=== PATIENT | female | born 1975 | race Caucasian/White ===

== ENCOUNTER 2020-08-23 16:54 | Outpatient (REF) | payer OTHER, SELFPAY | END 2020-08-23 16:55 | disposition home or self-care (01) | LOC: HO.LAB 16:54 | PROVIDERS: Visit Provider Nurse Practitioner Family | DX: Z20.828 Contact with and (suspected) exposure to other viral communicable diseases (principal) | CPT/HCPCS: U0003 ==

== ENCOUNTER 2020-10-12 10:24 | Outpatient (REF) | payer OTHER, SELFPAY ==
[2020-10-12 11:12] LABS: MANUAL DIFF FLAG NO
[2020-10-12 11:34] LABS: Basophils Percent Auto 0.4 % (0-2); Eosinophils Absolute Auto 0.2 X10*3/uL (0.0-0.4); Hematocrit 45.3 % (37-47); Hemoglobin 14.7 g/dl (12.0-16.0); Imm Gran Abs Auto 0.04 X10*3/uL (0.00-0.03); Imm Gran Pct Auto 0.5 % (0.0-0.4); Lymphocytes Absolute Auto 2.4 X10*3/uL (1.2-4.9); Lymphocytes Percent Auto 31.1 % (20-40); Mean Corpuscular HGB Conc 32.5 g/dl (31.0-35.0); Mean Corpuscular Hemoglobin 30.1 pg (27.0-33.0); Mean Corpuscular Volume 92.8 fL (80-98); Mean Platelet Volume 10.3 fL (9.4-12.3); Monocytes Absolute Auto 0.9 X10*3/uL (0.1-1.2); Monocytes Percent Auto 11.3 % (2-11); Neutrophils Absolute Auto 4.2 X10*3/uL (2.0-8.3); Neutrophils Percent Auto 54.7 % (45-73); Platelet Count 235 X10*3/uL (160-400); Red Blood Count 4.88 X10*6/uL (4.20-5.50); Red Cell Distribution Width 12.2 % (11.0-16.0); White Blood Count 7.6 X10*3/uL (4.8-10.8)
[2020-10-12 11:57] LABS: Alanine Aminotransferase 44 U/L (0-31); Albumin Level 4.3 g/dL (3.5-5.0); Alkaline Phosphatase 55 U/L (39-117); Anion Gap 13 (12-20); Aspartate Amino Transferase 19 U/L (5-31); Bilirubin Total 0.4 mg/dL (0.0-1.0); Blood Urea Nitrogen 14 mg/dL (9-16); Calcium 8.7 mg/dL (8.4-10.2); Carbon Dioxide 28 mmol/L (22-29); Chloride 102 mmol/L (96-108); Cholesterol 176 mg/dL; Estimated Glomerular Filt Rate > 60; Glucose Fasting 111 mg/dL (60-99); HDL Cholesterol 43 mg/dL; LDL Cholesterol Calculated 117 mg/dl; Potassium 4.6 mmol/l (3.3-5.1); Sodium 138 mmol/L (135-145); Total Protein 6.9 g/dL (6.5-8.0); Triglycerides 82 mg/dL
[2020-10-12 14:20] LABS: Glucose Urine UA NEG (NEG); Leukocyte Esterase Urine NEG (NEG); Nitrite Urine NEG (NEG); Specific Gravity - Urine <= 1.005 (1.005-1.025); Urine Blood NEG (NEG); Urine Ketones NEG (NEG); Urine Protein NEG (NEG-TRACE)
[2020-10-12 14:22] LABS: Appearance Urine CLEAR; Color Urine STRAW
[2020-10-12 14:47] LABS: RBC Urine 0 /HPF (0); WBC Urine 0-2 /HPF (0-4)
[2020-10-12 14:48] LABS: Squamous Epithelial Cell Urine TRACE /LPF
== END 2020-10-12 10:25 | disposition home or self-care (01) ==
LOC: HO.HMGCLDS 10:24
PROVIDERS: PCP Internal Medicine; Visit Provider Internal Medicine
DX: I10 Essential (primary) hypertension (principal); E78.5 Hyperlipidemia, unspecified; E66.01 Morbid (severe) obesity due to excess calories
CPT/HCPCS: 36415; 80053; 80061; 81001; 84443; 85025

== ENCOUNTER 2023-10-31 12:50 | Outpatient (AMB) | payer OTHER, SELFPAY ==
--- NOTE | 2023-10-31 12:54 | A.OFFPC_ITS ---
Vital Signs 10/31/23 12:55 Height 5 ft 8 in Weight 298 lb BMI 45.3 BP 138/80 Blood Pressure Location Lt brachial Position Sitting Pulse 97 Pulse Source Pulse Oximeter Pulse Oximetry (%) 98 Oxygen Delivery Method Room Air Intake Visit Reasons: PE Adjunct Teacher Required: No Accompanied by: Self / Same As Patient Allergies nut - unspecified [nut] Allergy (Severe, Verified 11/02/23 20:06) HIVES peanut [PEANUT] Allergy (Intermediate, Verified 11/02/23 20:06) HIVES prednisolone [From STERANE] Allergy (Intermediate, Verified 11/02/23 20:06) VISION PROBLEMS sesame oil [SESAME OIL] Allergy (Intermediate, Verified 11/02/23 20:06) HIVES galvan [GALVAN] Allergy (Unknown, Verified 11/02/23 20:06) UNKNOWN soy [SOY] Allergy (Unknown, Verified 11/02/23 20:06) UNKNOWN Medication List - Last Reconciled 11/02/23 by Benitez Espino MD atorvastatin 10 mg PO DAILY 90 days cholecalciferol (vitamin D3) 50 mcg PO DAILY ferrous sulfate (Feosol) 325 mg PO DAILY lisinopril 10 mg PO DAILY 90 days Tobacco use date assessed: 10/31/23 Dental Screening Dental Screen Date: 10/31/23 Did you have a dental visit in the last 12 months?: No Did you have a dental problem in the last 6 months where you did not have access to dental care?: No Was dental information given to patient?: No HPI PE HPI Details Patient comes in today for her annual physical examination - she was last seen by me for follow up over 3 years ago on 06/05/2020 Patient states that she currently feels okay She denies any headaches or dizziness Denies any chest pains, no SOB No nausea/vomiting, no abdominal pain No change in bowel habits noted Denies any acute urinary symptoms Needs both of her Rx refilled She has not had follow up labs done in over 3 years She had her screening colonoscopy done in [address] Villar and was recommended to get a repeat colonoscopy in 5 years (2022) due to family history She also has not had her screening mammogram and pap smear/gynecology exam done in a few years now and is due for all of her cancer screenings [facility] Medical History (Updated 11/02/23 @ 20:19 by Benitez Espino MD) Morbid obesity with BMI of 45.0-49.9, adult Vitamin D deficiency Anemia Pure hypercholesterolemia Essential hypertension Cellulitis of hand, left Thrush Sore throat Surgical History (Updated 10/31/23 @ 13:42 by Benitez Espino MD) Hx of colonoscopy History of hysteroscopy History of tonsillectomy Family History Father No problems noted. Mother Colon cancer Endometrial cancer Brother In good health Sister In good health Social History Housing: House Patient Tobacco Use Status: Never used Tobacco e-Cigarette/Vaping Use: Never Used Second Hand Smoke Exposure: No Current occupational status: employed Cognitive needs: No Hearing needs: No Vision needs: No Questionnaire PHQ-9 Over the last 2 weeks, how often have you been bothered by any of the following problems? 1. Little interest or pleasure in doing things: not at all 2. Feeling down, depressed, or hopeless: not at all 3. Trouble falling or staying asleep, or sleeping too much: not at all 4. Feeling tired or having little energy: not at all 5. Poor appetite or overeating: not at all 6. Feeling bad about yourself - or that you are a failure or have let yourself or your family down: not at all 7. Trouble concentrating on things, such as reading the newspaper or watching television: not at all 8. Moving or speaking so slowly that other people could have noticed. Or the opposite - being so fidgety or restless that you have been moving around a lot more than usual: not at all 9. Thoughts that you would be better off or of hurting yourself in some way: not at all Total score: 0 Depression Screening Interpretation: Negative Depression Screening Done: Yes 57368 - PHQ-9 Billing: Yes Source: Developed by Drs. Dudley Dos Santos, Farheen Benz, Feliciano Lopez and colleagues, with an educational desmond from [employer]. Thrive Questionnaire Date Thrive assessed: 10/31/23 I am a: Patient What is your living situation today?: I have a steady place to live Within the past 12 months, did the food you bought not last and you didn't have the money to get more?: Never true Within the past 12 months, did you worry whether your food would run out before you got money to buy more?: Never true Do you have trouble paying for medicines?: No Do you have trouble getting transportation to medical appointments?: No Do you have trouble paying your heating and electricity bill?: No Do you have trouble taking care of your child, family member or friend?: No Do you have trouble with day-to-day activities such as bathing, preparing meals, shopping, managing finances, etc.?: No Are you currently unemployed and looking for a job?: No Are you interested in more education?: No Please select the resources that you would like help with: None Currently or been in a relationship where the following occur: no concerns reported THRIVE Score: 0 AUDIT C Alcohol Use Questionnaire (AUDIT-C) 1. How often do you have a drink containing alcohol?: Never 3. How often do you have six or more drinks on one occasion?: Never Total Score: 0 Score Reviewed/Action Taken: Yes DONALDO-7 AMB Questionnaire DONALDO-7 Date DONALDO - 7 assessed: 10/31/23 Feeling nervous, anxious, or on edge: 0 = Not at all Not being able to stop or control worryin = Not at all Worrying too much about different things: 0 = Not at all Trouble relaxin = Not at all Being so restless that it is hard to sit still: 0 = Not at all Becoming easily annoyed or irritable: 0 = Not at all Feeling afraid as if something awful might happen: 0 = Not at all Total DONALDO-7 score (0-4 normal; 5-9 mild; 10-14 moderate; 15-21 severe): 0 Source: Developed by Drs. Dudley Dos Santos, Farheen Benz, Feliciano Lopez and colleagues, with an educational desmond from [employer]. Review of Systems Const Denies chills, Denies fatigue, Denies fever(s), Denies headache(s) and Denies malaise Eyes Denies blurry vision, Denies change in vision, Denies irritation and Denies itchy eyes ENT Denies dysphagia, Denies dizziness, Denies otalgia, Denies headache(s), Denies nasal congestion, Denies neck pain, Denies odynophagia, Denies sinus pain and Denies sore throat Card Denies chest pain, Denies rapid heart rate, Denies irregular heart rhythm, Nando es palpitations and Denies dyspnea Resp Denies chest congestion, Denies cough, Denies dyspnea and Denies wheezing GI Denies abdominal pain, Denies bloating, Denies constipation, Denies dysphagia, Denies heartburn, Denies diarrhea, Denies nausea, Denies odynophagia and Denies vomiting Denies hematuria, Denies urinary frequency, Denies dysuria, Denies urinary incontinence and Denies urinary urgency Musc Denies back pain, Denies arthralgias, Denies joint swelling, Denies muscle weakness and Denies neck pain Skin/Breast Denies breast pain, Denies breast mass, Denies change in pigmentation, Denies lesions, Denies rash and Denies unusual bruising Neuro Denies dizziness, Denies headache(s) and Denies paresthesias Psych Denies anxiety and Denies depression Endo Denies fatigue and Denies palpitations Jann/Lymph Denies easy bruising Aller/Immun Denies itchy eyes and Denies wheezing Physical exam (Primary Care) Vital Signs: Last Vital Signs Pulse 97 10/31/23 12:55 BP 138/80 10/31/23 12:55 Pulse Ox 98 10/31/23 12:55 Oxygen Delivery Method Room Air 10/31/23 12:55 BMI result Body Mass Index 45.3 Tobacco/Smoking Status: Tobacco use Status Tobacco use date assessed 10/31/23 10/31/23 13:05 Patient Tobacco Use Status Never used Tobacco 10/31/23 12:56 e-Cigarette/Vaping Use Never Used 10/31/23 12:56 PHQ-9: PHQ-9 Score PHQ-9: Total score 0 10/31/23 13:40 Depression Screening Interpretation: Negative Thrive Assessment: Date of Thrive Assessment Date Thrive assessed 10/31/23 10/31/23 13:05 Currently or been in a relationship where the following occur: no concerns reported Const General: no acute distress, alert and awake Orientation/consciousness: patient oriented x3 HENMT Head: Yes normocephalic and Yes atraumatic Ears: external ears normal, TM's normal bilaterally and EAC's normal General nose exam: No nasal discharge present Face and sinus: Yes normal facial exam and Yes sinuses nontender Teeth and gingiva: dentition normal Throat: Yes posterior oropharynx normal and Yes tonsils normal (no TP congestion) Eyes Eyelids: Yes eyelids normal Conjunctivae: conjunctivae normal Pupils: Equal, round and reactive pupils present EOM: EOMs intact bilaterally Neck Neck: Yes no lymphadenopathy and Yes supple Thyroid: Thyroid normal Resp Auscultation: clear to auscultation bilaterally, no rales and no wheezes Cardio Rate: regular rate Rhythm: regular rhythm Heart sounds: no murmurs GI Palpation (GI): Soft to palpation, nontender and No hepatosplenomegaly present Auscultation: normal bowel sounds General: Yes no CVA tenderness Back/Spine/Pelvis Back: no CVA tenderness Thoracic/Lumbar Spine: thoracic and lumbar spine normal to inspection Skin Lesions: no lesions Rashes: no rashes Neuro General: patient oriented x3, moves all extremities, no focal motor deficits and CN's II-XI intact bilaterally Cranial nerves: Yes Equal, round and reactive pupils present Cognition (Neuro): normal cognition Gait exam (Neuro): Normal gait present Extrem General: Yes no clubbing, cyanosis or edema Assessment and Plan Assessment & Plan (1) Annual physical exam: Code(s): Z00.00 - Encounter for general adult medical examination without abnormal findings Plan: Check labs She is due for all of her cancer screenings - these will be ordered/referred out (2) Essential hypertension: Code(s): I10 - Essential (primary) hypertension Plan: Reinforced low sodium diet - goal is systolic BP of 120 mm or less Continue Lisinopril 10 mg QD - Rx refilled Patient is reminded to continue monitoring her blood pressure regularly (3) Pure hypercholesterolemia: Code(s): E78.00 - Pure hypercholesterolemia, unspecified Plan: Will recheck her fasting lipids ALFRED for follow up Reinforced low cholesterol diet Continue Atorvastatin 10 mg QD Will recheck her labs and fasting lipids in 4 months for follow up (4) Anemia: Code(s): D64.9 - Anemia, unspecified Qualifiers: Anemia type: iron deficiency Iron deficiency anemia type: unspecified iron deficiency Qualified Code(s): D50.9 - Iron deficiency anemia, unspecified Plan: Will recheck her CBC ALFRED for follow up Continue Ferrous Sulfate 325 mg QD (5) Vitamin D deficiency: Code(s): E55.9 - Vitamin D deficiency, unspecified Plan: Continue Vitamin D3 2000 units QD Will recheck her Vitamin D level for follow up (6) Morbid obesity with BMI of 45.0-49.9, adult: Code(s): E66.01 - Morbid (severe) obesity due to excess calories; Z68.42 - Body mass index [BMI] 45.0-49.9, adult Plan: Reinforced diet/exercise as tolerated/lose weight (7) Colon cancer screening: Code(s): Z12.11 - Encounter for screening for malignant neoplasm of colon Plan: Will refer her back to Dr. Villar for repeat colonoscopy (8) Cervical cancer screening: Code(s): Z12.4 - Encounter for screening for malignant neoplasm of cervix Plan: Will refer her to [facility] for her annual pap smear and gynecology exam - was last done by Dr. Gibbs a few years ago (9) Breast cancer screening by mammogram: Code(s): Z12.31 - Encounter for screening mammogram for malignant neoplasm of breast Plan: Will send her for her screening mammogram Plan Follow up in 4 months Orders: Orders MM tomosynthesis screening BI 10/31/23 Z12.31 - Encounter for screening mammogram for malignant neoplasm of breast Complete Blood Count Auto Diff 10/31/23 D64.9 - Anemia, unspecified Comprehensive [place]. Panel Fast 10/31/23 E78.00 - Pure hypercholesterolemia, unspecified TSH reflex Free T4 10/31/23 E78.00 - Pure hypercholesterolemia, unspecified UA CC w/rflx Micro + Cult 10/31/23 R30.0 - Dysuria Vitamin D 25-OH Total 10/31/23 E55.9 - Vitamin D deficiency, unspecified Comprehensive [place]. Panel Fast 4 Months E78.00 - Pure hypercholesterolemia, unspecified Lipid Panel 10/31/23 E78.00 - Pure hypercholesterolemia, unspecified Vitamin B12 and Folate 10/31/23 E53.8 - Deficiency of other specified B group vitamins Lipid Panel 4 Months E78.00 - Pure hypercholesterolemia, unspecified Referrals General Surgery Referral Z12.11 - Encounter for screening for malignant neoplasm of colon PULL OVER Referral Z12.4 - Encounter for screening for malignant neoplasm of cervix Medications: Refilled atorvastatin 10 mg PO DAILY 90 days 90 tabs 1RF E78.5 - Hyperlipidemia, unspecified lisinopril 10 mg PO DAILY 90 days 90 tabs 1RF I10 - Essential (primary) hypertension Coding Level of Care Code Est Pt Prev Care 40-64y(63828) Diagnoses Annual physical exam Z00.00 Essential hypertension I10 Pure hypercholesterolemia E78.00 Iron deficiency anemia, unspecified iron deficiency anemia type D50.9 Anemia type: iron deficiency Iron deficiency anemia type: unspecified iron deficiency Vitamin D deficiency E55.9 Morbid obesity with BMI of 45.0-49.9, adult E66.01; Z68.42 Colon cancer screening Z12.11 Cervical cancer screening Z12.4 Breast cancer screening by mammogram Z12.31
[2023-10-31 12:55] VITALS: BP 138/80; PULSE 97; O2SAT 98; BMI 45.3
== END 2023-10-31 13:50 | disposition home or self-care (01) ==
PROVIDERS: PCP Internal Medicine; Visit Provider Internal Medicine
DX: Z00.00 Encounter for general adult medical examination without abnormal findings (principal); I10 Essential (primary) hypertension; E66.01 Morbid (severe) obesity due to excess calories; Z68.42 Body mass index [BMI] 45.0-49.9, adult; D50.9 Iron deficiency anemia, unspecified
CPT/HCPCS: 99396

== ENCOUNTER 2023-11-27 10:48 | Outpatient (AMB) | payer OTHER, SELFPAY ==
--- NOTE | 2023-11-27 11:09 | MHC.OFFVIS ---
Intake Vital Signs 11/27/23 11:12 Height 5 ft 8 in Weight 304 lb 10.861 oz BMI 46.3 BP 160/90 H Blood Pressure Location Lt brachial Position Sitting Intake Visit Reasons: Recall Colonoscopy Intake Note: This patient presents for a recall colonoscopy screening assessment. 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 Accompanied by: Self / Same As Patient Allergies nut - unspecified [nut] Allergy (Severe, Verified 11/27/23 11:12) HIVES peanut [PEANUT] Allergy (Intermediate, Verified 11/27/23 11:12) HIVES prednisolone [From STERANE] Allergy (Intermediate, Verified 11/27/23 11:12) VISION PROBLEMS sesame oil [SESAME OIL] Allergy (Intermediate, Verified 11/27/23 11:12) HIVES galvan [GALVAN] Allergy (Unknown, Verified 11/27/23 11:12) UNKNOWN soy [SOY] Allergy (Unknown, Verified 11/27/23 11:12) UNKNOWN Medication List - Last Reconciled 11/27/23 by Corey Villar MD atorvastatin 10 mg PO DAILY 90 days cholecalciferol (vitamin D3) 50 mcg PO DAILY ferrous sulfate (Feosol) 325 mg PO DAILY lisinopril 10 mg PO DAILY 90 days HPI Recall Colonoscopy HPI Details 48-year-old female with a family history of colon cancer here for screening colonoscopy. She says she undergoes colonoscopy every 5 years because of her mother having had colon cancer in her 60s. She also says her mother had endometrial cancer and is undergoing treatment now Her last colonoscopy was in 2018. Small polyps were removed which were tubular adenomas She denies any GI complaints at this time. [facility] Medical History (Updated 11/27/23 @ 11:40 by Corey Villar MD) Family history of colon cancer Morbid obesity with BMI of 45.0-49.9, adult Vitamin D deficiency Anemia Pure hypercholesterolemia Essential hypertension Cellulitis of hand, left Thrush Sore throat Surgical History Hx of colonoscopy History of hysteroscopy History of tonsillectomy Family History (Updated 11/27/23 @ 11:11 by BURAK Beckman) Father No problems noted. Mother Colon cancer Endometrial cancer Brother In good health Sister In good health Social History Housing: House Patient Tobacco Use Status: Never used Tobacco e-Cigarette/Vaping Use: Never Used Second Hand Smoke Exposure: No Current occupational status: employed Cognitive needs: No Hearing needs: No Vision needs: No Review of Systems Const Denies chills and Denies fever(s) Card Denies chest pain, Denies dyspnea and Denies dyspnea on exertion Resp Denies cough, Denies dyspnea and Denies dyspnea on exertion GI Denies hematochezia and Denies change in bowel habits Denies hematuria Musc Denies back pain and Denies limited range of motion Neuro Denies focal weakness and Denies convulsions Psych Denies depression and Denies mood swings Physical Exam Vital Signs: Last Vital Signs BP 160/90 H 11/27/23 11:12 BMI result Body Mass Index 46.3 Const Other: Morbidly obese General: comfortable and no acute distress Orientation/consciousness: patient oriented x3 Neck Neck: Yes no lymphadenopathy Resp Auscultation: clear to auscultation bilaterally Cardio Rhythm: regular rhythm GI Palpation (GI): Soft to palpation, nontender and no guarding Neuro General: patient oriented x3 Assessment & Plan Assessment & Plan (1) Family history of colon cancer: Code(s): Z80.0 - Family history of malignant neoplasm of digestive organs Plan: In view of her family history of colon cancer, she had been recommended to undergo colonoscopy every 5 years. I reviewed with her the technique of this procedure. She understands the risks including but not limited to bleeding and perforation, as well as the benefits and alternatives. She has given consent She was also counseled on the benefits of weight loss with regards to her risk of colon cancer. I also referred her the option of genetic counseling in view of her mother having had endometrial cancer. She says she will think about this. Medications: New sodium,potassium,mag sulfates 17.5-3.13-1.6 gram (Suprep Bowel Prep Kit) DILUTE; drink full amount early evening before AND next morning at least 2 hr before procedure; follow w 960 mL water PO 354 mL 0RF Coding Level of Care Code New Pt Level 3 (33372) Diagnoses Family history of colon cancer Z80.0
[2023-11-27 11:12] VITALS: BP 160/90; BMI 46.3
== END 2023-11-27 11:43 | disposition home or self-care (01) ==
PROVIDERS: PCP Internal Medicine; Visit Provider Surgery
DX: Z80.0 Family history of malignant neoplasm of digestive organs (principal)
CPT/HCPCS: 99203

== ENCOUNTER 2023-11-27 10:48 | Outpatient (REF) | payer OTHER, SELFPAY ==
[2023-11-27 12:06] LABS: MANUAL DIFF FLAG NO
[2023-11-27 12:33] LABS: Basophils Absolute Auto 0.1 X10*3/uL (0.0-0.2); Basophils Percent Auto 0.5 % (0-2); Eosinophils Absolute Auto 0.4 X10*3/uL (0.0-0.4); Eosinophils Percent Auto 4.1 % (0-4); Hematocrit 41.6 % (37.0-47.0); Hemoglobin 14.1 g/dl (12.0-16.0); Imm Gran Abs Auto 0.04 X10*3/uL (0.00-0.03); Imm Gran Pct Auto 0.4 % (0.0-0.4); Lymphocytes Absolute Auto 2.5 X10*3/uL (1.2-4.9); Lymphocytes Percent Auto 23.3 % (20-40); Mean Corpuscular HGB Conc 33.9 g/dl (31.0-35.0); Mean Corpuscular Hemoglobin 31.1 pg (27.0-33.0); Mean Corpuscular Volume 91.8 fL (80.0-98.0); Mean Platelet Volume 10.2 fL (9.4-12.3); Monocytes Absolute Auto 0.9 X10*3/uL (0.1-1.2); Monocytes Percent Auto 8.4 % (2-11); Neutrophils Absolute Auto 6.8 x10*3/uL (2.0-8.3); Neutrophils Percent Auto 63.3 % (45-73); Platelet Count 209 X10*3/uL (160-400); Red Blood Count 4.53 X10*6/uL (4.20-5.50); Red Cell Distribution Width 12.8 % (11.0-16.0); White Blood Count 10.8 X10*3/uL (4.8-10.8)
[2023-11-27 13:25] LABS: Alanine Aminotransferase 105 U/L (0-31); Albumin Level 3.9 g/dL (3.5-5.0); Alkaline Phosphatase 64 U/L (39-117); Anion Gap 14 (12-20); Aspartate Amino Transferase 59 U/L (5-31); Bilirubin Total 0.6 mg/dL (0.0-1.0); Blood Urea Nitrogen 18 mg/dL (9-16); Calcium 9.4 mg/dL (8.4-10.2); Carbon Dioxide 24 mmol/L (22-29); Chloride 103 mmol/L (96-108); Cholesterol 176 mg/dL (<200); Estimated Glomerular Filt Rate > 60; Glucose Fasting 102 mg/dL (60-99); HDL Cholesterol 36 mg/dL (>40); LDL Cholesterol Calculated 110 mg/dL (<100); Potassium 3.9 mmol/L (3.3-5.1); Sodium 137 mmol/L (135-145); Triglycerides 152 mg/dL (<150)
[2023-11-27 13:40] LABS: TSH reflex Free T4 4.11 uIU/mL (0.32-4.0); Vitamin D 25-OH Total 60.9 ng/mL (>30)
[2023-11-27 13:53] LABS: Folate 3.2 ng/mL (> or = 4.0); Vitamin B12 444 pg/mL (200-900)
[2023-11-27 14:23] LABS: Free T4 (Free Thyroxine) 1.06 ng/dL (0.71-1.85)
[2023-11-27 14:36] LABS: Appearance Urine Cloudy; Color Urine Yellow; Glucose Urine UA Negative (Negative); Leukocyte Esterase Urine Small (1+) (Negative); Nitrite Urine Negative (Negative); PH 5.5 (5.0-9.0); Specific Gravity - Urine <= 1.005 (1.005-1.025); UMIC TRIGGER UACC YES; Urine Blood Negative (Negative); Urine Ketones Negative (Negative); Urine Protein Trace mg/dL (Neg-Trace)
[2023-11-27 14:47] LABS: Bacteria Urine 1+ (None Seen); Hyaline Casts Urine 0-2 /LPF (0-2); RBC Urine 0-2 /HPF (0-2); UACC Culture Trigger YES
== END 2023-11-27 10:49 | disposition home or self-care (01) ==
LOC: HO.LAB 10:48
PROVIDERS: Absent Provider Internal Medicine; PCP Internal Medicine; Visit Provider Surgery
DX: E55.9 Vitamin D deficiency, unspecified (principal); E78.00 Pure hypercholesterolemia, unspecified; E53.8 Deficiency of other specified B group vitamins; D64.9 Anemia, unspecified; R30.0 Dysuria
CPT/HCPCS: 36415; 80053; 80061; 81001; 82306; 82607; 82746; 84439; 84443; 85025; 87086

== ENCOUNTER 2023-12-18 11:03 | Outpatient (REF) | payer OTHER, SELFPAY ==
--- NOTE | ~2023-12-18 | MM_ITS ---
EXAMINATION: MM SCREENING DIGITAL BREAST TOMOSYNTHESIS, BILATERAL CLINICAL INFORMATION: Screening. Asymptomatic. COMPARISON: Mammography: This study is compared with the only prior mammogram from 2019. TECHNIQUE: Digital breast tomosynthesis is performed in both the craniocaudal and mediolateral oblique views along with computer-aided detection (CAD). Synthesized 2D images are generated from the tomosynthesis. FINDINGS: There are scattered areas of fibroglandular density (ACR BI-RADS breast composition Category b). There are no significant masses, abnormal calcifications, or other abnormalities. MM/MM tomosynthesis screening BI IMPRESSION: No mammographic evidence of malignancy. ASSESSMENT: BI-RADS BI-RADS 1 - Negative RECOMMENDATION: Routine annual mammography screening. 1 year F/U This examination should not preclude the clinical evaluation of a suspicious palpable abnormality. This patient's information was entered into a reminder system with a target due date for their next mammogram.
== END 2023-12-18 11:04 | disposition home or self-care (01) ==
LOC: HO.MAMMO 11:03
PROVIDERS: PCP Internal Medicine; Visit Provider Internal Medicine
DX: Z12.31 Encounter for screening mammogram for malignant neoplasm of breast (principal)
CPT/HCPCS: 77063; 77067

== ENCOUNTER → 2023-12-18 11:30 | Outpatient (BNV) | payer OTHER, SELFPAY | PROVIDERS: PCP Internal Medicine; Visit Provider Radiology Diagnostic Radiology | DX: Z12.31 Encounter for screening mammogram for malignant neoplasm of breast (principal) | CPT/HCPCS: 77063; 77067 ==

== ENCOUNTER 2024-01-16 07:37 | Day surgery (SDC) | payer OTHER, SELFPAY ==
--- NOTE | 2024-01-14 15:01 | P.CONAN_ITS ---
Documented by User: Marlene Ahuja NP 01/14/24 15:01 HPI - Anesthesia Eval Consult details Narrative: 48yo F for Colonoscopy with Possible Polypectomy PMFSH Active Problems Active Problems: All Active Problems Family history of colon cancer (Acute) Breast cancer screening by mammogram (Acute) Morbid obesity with BMI of 45.0-49.9, adult (Acute) Vitamin D deficiency (Acute) Anemia (Acute) Pure hypercholesterolemia (Acute) Essential hypertension (Acute) Annual physical exam (Acute) Cervical cancer screening (Acute) Colon cancer screening (Acute) Hypertension (Acute) Hyperlipidemia (Acute) Past Medical History Medical History (Updated 11/27/23 @ 11:40 by Corey Villar MD) Family history of colon cancer Morbid obesity with BMI of 45.0-49.9, adult Vitamin D deficiency Anemia Pure hypercholesterolemia Essential hypertension Cellulitis of hand, left Thrush Sore throat Family History Family History (Updated 11/27/23 @ 11:11 by BURAK Beckman) Father No problems noted. Mother Colon cancer Endometrial cancer Brother In good health Sister In good health Surgical History Surgical History Hx of colonoscopy History of hysteroscopy History of tonsillectomy Social History Social History Housing: House Patient Tobacco Use Status: Never used Tobacco e-Cigarette/Vaping Use: Never Used Second Hand Smoke Exposure: No Use of substances other than those prescribed or required for medical reasons: No Are you DNR?: No Advance Directives: No Advance Directives Information Provided: Yes Current occupational status: employed Cognitive needs: No Hearing needs: No Vision needs: No Meds Allergies Allergy/AdvReac Type Severity Reaction Status Date / Time nut - unspecified [nut] Allergy Severe HIVES Verified 01/16/24 09:08 peanut [PEANUT] Allergy Intermediate HIVES Verified 01/16/24 09:08 prednisolone [From STERANE] Allergy Intermediate VISION Verified 01/16/24 09:08 PROBLEMS sesame oil [SESAME OIL] Allergy Intermediate HIVES Verified 01/16/24 09:08 galvan [GALVAN] Allergy Unknown UNKNOWN Verified 01/16/24 09:08 soy [SOY] Allergy Unknown UNKNOWN Verified 01/16/24 09:08 Home Medications ?Medication ?Instructions ?Recorded ?Confirmed ?Last Taken ?Type cholecalciferol (vitamin D3) 50 50 mcg PO DAILY 05/26/21 01/16/24 01/15/24 History mcg (2,000 unit) capsule ferrous sulfate 325 mg (65 mg 325 mg PO DAILY 05/26/21 01/16/24 01/14/24 History iron) tablet (Feosol) Assessment and Plan Assessment Anesthesia Assessment: Chart Reviewed Documented by User: Nathaly Gray MD 01/16/24 09:09 [facility] Past Medical History Medical History (Updated 11/27/23 @ 11:40 by Corey Villar MD) Family history of colon cancer Morbid obesity with BMI of 45.0-49.9, adult Vitamin D deficiency Anemia Pure hypercholesterolemia Essential hypertension Cellulitis of hand, left Thrush Sore throat Family History Family History (Updated 11/27/23 @ 11:11 by BURAK Beckman) Father No problems noted. Mother Colon cancer Endometrial cancer Brother In good health Sister In good health Family history of problems with anesthesia: No Surgical History Surgical History Hx of colonoscopy History of hysteroscopy History of tonsillectomy History of Problems with Anesthesia: No Social History Social History Housing: House Patient Tobacco Use Status: Never used Tobacco e-Cigarette/Vaping Use: Never Used Second Hand Smoke Exposure: No Use of substances other than those prescribed or required for medical reasons: No Are you DNR?: No Advance Directives: No Advance Directives Information Provided: Yes Current occupational status: employed Cognitive needs: No Hearing needs: No Vision needs: No Meds Allergies Allergy/AdvReac Type Severity Reaction Status Date / Time nut - unspecified [nut] Allergy Severe HIVES Verified 01/16/24 09:08 peanut [PEANUT] Allergy Intermediate HIVES Verified 01/16/24 09:08 prednisolone [From STERANE] Allergy Intermediate VISION Verified 01/16/24 09:08 PROBLEMS sesame oil [SESAME OIL] Allergy Intermediate HIVES Verified 01/16/24 09:08 galvan [GALVAN] Allergy Unknown UNKNOWN Verified 01/16/24 09:08 soy [SOY] Allergy Unknown UNKNOWN Verified 01/16/24 09:08 Home Medications ?Medication ?Instructions ?Recorded ?Confirmed ?Last Taken ?Type cholecalciferol (vitamin D3) 50 50 mcg PO DAILY 05/26/21 01/16/24 01/15/24 History mcg (2,000 unit) capsule ferrous sulfate 325 mg (65 mg 325 mg PO DAILY 05/26/21 01/16/24 01/14/24 History iron) tablet (Feosol) Exam Airway Mallampati Class: II (small mouth opening) TM Dist: >3cm Neck ROM: Full Heart: rrr Lungs: cta Assessment and Plan Assessment Anesthesia Assessment: Anesthesia Plan Discussed Final Anesthetic Review Family History of Problems with Anesthesia: No History of Problems with Anesthesia: No NPO: Yes ASA Class: III Final Preanesthetic Review: No Changes in Pt Med Stat, Meds/Allgs Chart Reviewed and Consent Obtained/Reviewed Patient Risk: Intermediate Procedure Risk: Low Anesthetic Plan Anesthetic Plan: MAC: Disposition: Standard PACU
[2024-01-15 06:34] VITALS: BMI 46.2
[2024-01-16 08:42] VITALS: BMI 45.6
[2024-01-16 09:07] VITALS: BP 178/98; PULSE 87; RESP 16; TEMP 36.1; O2SAT 97
[2024-01-16] MEDS: Lactated Ringers 1,000 ML 100 ML IVCONT (09:08)
--- NOTE | 2024-01-16 09:29 | P.HPSUR_ITS ---
Pre-Procedural Eval Section A - 24 Hr Update-Section A only Date of Service: 01/16/24 Section B - Complete if H&P > 30 days Chief Complaint: Family history of malignant neoplasm of digestive Details of Present Illness: Family history of colon cancer, undergoes a colonoscopy every 5 years Relevant Family History (Specify if Yes): Yes Relevant Social History: None Present Medications: see Short Stay Collaborative assessment Medical History: Significant History (Obesity, hypertension, hyperlipidemia) Allergies: Allergies Allergy/AdvReac Type Severity Reaction Status Date / Time nut - unspecified [nut] Allergy Severe HIVES Verified 01/16/24 09:08 peanut [PEANUT] Allergy Intermediate HIVES Verified 01/16/24 09:08 prednisolone [From STERANE] Allergy Intermediate VISION Verified 01/16/24 09:08 PROBLEMS sesame oil [SESAME OIL] Allergy Intermediate HIVES Verified 01/16/24 09:08 diaz [DIAZ] Allergy Unknown UNKNOWN Verified 01/16/24 09:08 soy [SOY] Allergy Unknown UNKNOWN Verified 01/16/24 09:08 Review of Systems Sugical H&P ROS: Negative: Constitution, Cardiovascular, Respiratory, Neurological, Psychiatric, Hem-Onc, Allergic/Immunologic, Gastrointestinal, Genitourinary, Musculoskeletal, Integumentary, Endocrine and Eyes/Ears/Nose/T hroat Exam Surgical H&P Exam: Normal: HEENT, Normal: Heart, Normal: Lungs, Normal: Extremities, Normal: Abdomen, Normal: Skin and Normal: Neurological Plan Diagnosis/Plan: Unchanged I have reviewed the history and physical and performed a pertinent physical examination on my patient. No changes have occurred unless specified. Time Spent With Patient Time: Total time managing care of this patient today ____ minutes.
--- NOTE | 2024-01-16 10:11 | W.PM.OPN ---
Operative Note Operative Note Date of Service: 01/16/24 Narrative: Preop diagnosis: Family history of colon cancer Postop diagnosis: 1. small polyp about 3 mm, right colon, removed by cold forceps 2. Polyp, about .8 cm in size, level 25 cm, removed by hot snare 3. Occasional diverticuli, left colon and sigmoid Procedure: Colonoscopy with polypectomy using cold forceps x1 and polypectomy some hot snare x1 Surgeon: Corey Villar MD The patient is a 48-year-old female with a family history of colon cancer who is undergoing screening colonoscopy every 5 years. She understands the technique of the procedure as well as the risks, benefits, and alternatives. The patient was brought to the operating room and placed in left lateral decubitus position under monitored anesthesia care. A surgical time-out was done. A full digital rectal exam was done and this did not reveal any significant anal lesions. The tip of the Olympus colonoscope was gently introduced through the anal orifice advanced with insufflation all the way to the cecum. The cecum was intubated. The cecum was identified by visualization of the ileocecal valve as well as the appendiceal orifice. The cecal mucosa was unremarkable. The scope was gradually withdrawn with careful examination of the entire colonic mucosa being done with scope withdrawal. The patient had adequate bowel prep so it was unlikely that any lesion may have been missed. In the mid right colon, there was note of a small polyp, about 3 mm in size. This was removed with cold forceps. At level 25 cm, there was note of a 0.8 cm polyp. This was removed using hot snare. There was note of occasional diverticuli in the left colon sigmoid. The rectum was reached and there were no lesions seen. The anal canal was unremarkable. The scope was then withdrawn completely with desufflation. The patient tolerated the procedure well. There were no immediate complications. Depending on the path report, her next colonoscopy may be in the next 5 years.
[2024-01-16 10:18] VITALS: BP 129/78; PULSE 85; RESP 16; TEMP 36.7; O2SAT 100
[2024-01-16 10:33] VITALS: BP 156/93; PULSE 78; RESP 18; TEMP 36.1; O2SAT 100
== END 2024-01-16 10:54 | disposition home or self-care (01) ==
PROVIDERS: PCP Internal Medicine; Visit Provider Surgery
PROC: 0DBE8ZZ Excision of Large Intestine, Via Natural or Artificial Opening Endoscopic (ICD-10-PCS; CPT 45385; principal; 2024-01-16 09:30)
DX: Z12.11 Encounter for screening for malignant neoplasm of colon (principal); Z80.0 Family history of malignant neoplasm of digestive organs; D12.2 Benign neoplasm of ascending colon; K63.5 Polyp of colon; K57.30 Diverticulosis of large intestine without perforation or abscess without bleeding; Z80.8 Family history of malignant neoplasm of other organs or systems; E66.01 Morbid (severe) obesity due to excess calories; Z68.42 Body mass index [BMI] 45.0-49.9, adult; I10 Essential (primary) hypertension; E55.9 Vitamin D deficiency, unspecified; D64.9 Anemia, unspecified; E78.00 Pure hypercholesterolemia, unspecified; Z79.899 Other long term (current) drug therapy; Z91.018 Allergy to other foods; Z91.010 Allergy to peanuts; Z88.8 Allergy status to other drugs, medicaments and biological substances
CPT/HCPCS: 45385; 45380; 88305; J2704

== ENCOUNTER → 2024-01-16 07:37 | Outpatient (BNV) | payer OTHER, SELFPAY | PROVIDERS: PCP Internal Medicine; Visit Provider Surgery | DX: Z12.11 Encounter for screening for malignant neoplasm of colon (principal); K63.5 Polyp of colon; K57.90 Diverticulosis of intestine, part unspecified, without perforation or abscess without bleeding; Z80.0 Family history of malignant neoplasm of digestive organs | CPT/HCPCS: 45380; 45385 ==

== ENCOUNTER 2024-02-02 11:01 | Outpatient (AMB) | payer OTHER, SELFPAY ==
--- NOTE | 2024-02-02 11:02 | MHC.OFFVIS ---
Intake Visit Reasons: s/p colonoscopy Intake Note: This patient presents for a post-op assessment status post colonoscopy. Patient c/o; reports no complaints. Breakdown Man Required: No Accompanied by: Self / Same As Patient Allergies nut - unspecified [nut] Allergy (Severe, Verified 02/02/24 11:05) HIVES peanut [PEANUT] Allergy (Intermediate, Verified 02/02/24 11:05) HIVES prednisolone [From STERANE] Allergy (Intermediate, Verified 02/02/24 11:05) VISION PROBLEMS sesame oil [SESAME OIL] Allergy (Intermediate, Verified 02/02/24 11:05) HIVES diaz [DIAZ] Allergy (Unknown, Verified 02/02/24 11:05) UNKNOWN soy [SOY] Allergy (Unknown, Verified 02/02/24 11:05) UNKNOWN Medication List - Last Reconciled 02/02/24 by Corey Villar MD atorvastatin 10 mg PO DAILY 90 days cholecalciferol (vitamin D3) 50 mcg PO DAILY ferrous sulfate (Feosol) 325 mg PO DAILY lisinopril 10 mg PO DAILY 90 days HPI HPI s/p colonoscopy: Details: She underwent colonoscopy because of a family history of colon cancer last 01/16/2024. She tolerated the procedure well. She currently denies significant complaints. [facility] Medical History (Updated 02/02/24 @ 11:09 by Corey Villar MD) Tubular adenoma Family history of colon cancer Morbid obesity with BMI of 45.0-49.9, adult Vitamin D deficiency Anemia Pure hypercholesterolemia Essential hypertension Cellulitis of hand, left Thrush Sore throat Surgical History Hx of colonoscopy (~01/16/24) Hx of colonoscopy History of hysteroscopy History of tonsillectomy Family History Father No problems noted. Mother Colon cancer Endometrial cancer Brother In good health Sister In good health Social History Housing: House Patient Tobacco Use Status: Never used Tobacco e-Cigarette/Vaping Use: Never Used Second Hand Smoke Exposure: No Current occupational status: employed Cognitive needs: No Hearing needs: No Vision needs: No Review of Systems Const Denies chills and Denies fever(s) Card Denies chest pain, Denies dyspnea and Denies dyspnea on exertion Resp Denies cough, Denies dyspnea and Denies dyspnea on exertion GI Denies hematochezia and Denies change in bowel habits Denies hematuria Musc Denies back pain and Denies limited range of motion Neuro Denies focal weakness and Denies convulsions Psych Denies depression and Denies mood swings Physical Exam Const General: comfortable and no acute distress Resp Effort & Inspection: normal respiratory effort Cardio Rate: regular rate GI Palpation (GI): Soft to palpation, not firm and nontender Assessment & Plan Assessment & Plan (1) Tubular adenoma: Code(s): D36.9 - Benign neoplasm, unspecified site Category: Medical Plan: Status post colonoscopy for screening. I removed 2 small polyps. One was a tubular adenoma in the right colon. The other 1 was a hyperplastic polyp. In view of her family history, I would recommend continue with her colonoscopy every 5 years for screening. Coding Level of Care Code Est Pt Level 2 (03107) Diagnoses Tubular adenoma D36.9
== END 2024-02-02 11:24 | disposition home or self-care (01) ==
PROVIDERS: PCP Internal Medicine; Visit Provider Surgery
DX: D36.9 Benign neoplasm, unspecified site (principal)
CPT/HCPCS: 99212

== ENCOUNTER → 2024-02-02 11:01 | Outpatient (BNVA) | payer OTHER, SELFPAY | PROVIDERS: PCP Internal Medicine; Visit Provider Surgery ==

== ENCOUNTER 2024-03-04 10:50 | Outpatient (AMB) | payer OTHER, SELFPAY ==
--- NOTE | 2024-03-04 11:05 | A.OFFPC_ITS ---
Vital Signs 03/04/24 11:06 Height 5 ft 8 in Weight 293 lb BMI 44.5 BP 138/80 Blood Pressure Location Lt brachial Position Sitting Pulse 74 Pulse Source Pulse Oximeter Pulse Oximetry (%) 97 Oxygen Delivery Method Room Air Intake Visit Reasons: hyperlipidemia, HTN Intake Note: Patient here for a follow up hyperlipidemia, HTN Bindery Manager Required: No Accompanied by: Self / Same As Patient Allergies nut - unspecified [nut] Allergy (Severe, Verified 03/04/24 11:43) HIVES peanut [PEANUT] Allergy (Intermediate, Verified 03/04/24 11:43) HIVES prednisolone [From STERANE] Allergy (Intermediate, Verified 03/04/24 11:43) VISION PROBLEMS sesame oil [SESAME OIL] Allergy (Intermediate, Verified 03/04/24 11:43) HIVES galvan [GALVAN] Allergy (Unknown, Verified 03/04/24 11:43) UNKNOWN soy [SOY] Allergy (Unknown, Verified 03/04/24 11:43) UNKNOWN Medication List - Last Reconciled 03/04/24 by Benitez Espino MD atorvastatin 10 mg PO DAILY 90 days cholecalciferol (vitamin D3) 50 mcg PO DAILY lisinopril 10 mg PO DAILY 90 days Tobacco use date assessed: 10/31/23 Dental Screening Dental Screen Date: 03/04/24 Did you have a dental visit in the last 12 months?: No Did you have a dental problem in the last 6 months where you did not have access to dental care?: No Was dental information given to patient?: Patient has dentist HPI hyperlipidemia, HTN HPI Details Patient comes in today for her follow up visit States that she feels okay She had her repeat colonoscopy back in late December 2023 - (+) tubular adenoma and she was advised to get a repeat colonoscopy in 5 years (2028) She denies any headaches or dizziness Denies any chest pains, no SOB No nausea/vomiting, no abdominal pain No change in bowel habits noted She was not able to get her follow up labs done prior to her visit today although she did have some labs done for Dr. Villar back in November 2023 [facility] Medical History Tubular adenoma Family history of colon cancer Morbid obesity with BMI of 45.0-49.9, adult Vitamin D deficiency Anemia Pure hypercholesterolemia Essential hypertension Cellulitis of hand, left Thrush Sore throat Surgical History Hx of colonoscopy (~01/16/24) Hx of colonoscopy History of hysteroscopy History of tonsillectomy Family History Father No problems noted. Mother Colon cancer Endometrial cancer Brother In good health Sister In good health Social History Housing: House Patient Tobacco Use Status: Never used Tobacco e-Cigarette/Vaping Use: Never Used Second Hand Smoke Exposure: No service: No Current occupational status: employed Cognitive needs: No Hearing needs: No Vision needs: Yes Questionnaire PHQ-9 Over the last 2 weeks, how often have you been bothered by any of the following problems? 1. Little interest or pleasure in doing things: not at all 2. Feeling down, depressed, or hopeless: not at all 3. Trouble falling or staying asleep, or sleeping too much: not at all 4. Feeling tired or having little energy: not at all 5. Poor appetite or overeating: not at all 6. Feeling bad about yourself - or that you are a failure or have let yourself or your family down: not at all 7. Trouble concentrating on things, such as reading the newspaper or watching television: not at all 8. Moving or speaking so slowly that other people could have noticed. Or the opposite - being so fidgety or restless that you have been moving around a lot more than usual: not at all 9. Thoughts that you would be better off or of hurting yourself in some way: not at all Total score: 0 Depression Screening Interpretation: Negative Depression Screening Done: Yes 81957 - PHQ-9 Billing: Yes Source: Developed by Drs. Dudley Dos Santos, Farheen Benz, Feliciano Lopez and colleagues, with an educational desmond from [employer]. Thrive Questionnaire Date Thrive assessed: 03/04/24 I am a: Patient What is your living situation today?: I have a steady place to live Within the past 12 months, did the food you bought not last and you didn't have the money to get more?: Never true Within the past 12 months, did you worry whether your food would run out before you got money to buy more?: Never true Do you have trouble paying for medicines?: No Do you have trouble getting transportation to medical appointments?: No Do you have trouble paying your heating and electricity bill?: No Do you have trouble taking care of your child, family member or friend?: No Do you have trouble with day-to-day activities such as bathing, preparing meals, shopping, managing finances, etc.?: No Are you currently unemployed and looking for a job?: No Are you interested in more education?: No Please select the resources that you would like help with: None Currently or been in a relationship where the following occur: no concerns reported THRIVE Score: 0 AUDIT C Alcohol Use Questionnaire (AUDIT-C) 1. How often do you have a drink containing alcohol?: Never 3. How often do you have six or more drinks on one occasion?: Never Total Score: 0 Score Reviewed/Action Taken: Yes DONALDO-7 AMB Questionnaire DONALDO-7 Date DONALDO - 7 assessed: 03/04/24 Feeling nervous, anxious, or on edge: 0 = Not at all Not being able to stop or control worryin = Not at all Worrying too much about different things: 0 = Not at all Trouble relaxin = Not at all Being so restless that it is hard to sit still: 0 = Not at all Becoming easily annoyed or irritable: 0 = Not at all Feeling afraid as if something awful might happen: 0 = Not at all Total DONALDO-7 score (0-4 normal; 5-9 mild; 10-14 moderate; 15-21 severe): 0 Source: Developed by Drs. Dudley Dos Santos, Farheen Benz, Feliciano Lopez and colleagues, with an educational desmond from [employer]. Review of Systems Const Denies chills, Denies fatigue, Denies fever(s) and Denies headache(s) ENT Denies dysphagia, Denies dizziness, Denies otalgia, Denies headache(s), Denies neck pain, Denies odynophagia and Denies sore throat Card Denies chest pain, Denies palpitations and Denies dyspnea Resp Denies cough and Denies dyspnea GI Denies abdominal pain, Denies constipation, Denies dysphagia, Denies heartburn, Denies diarrhea, Denies nausea, Denies odynophagia and Denies vomiting Denies difficulty voiding, Denies nocturia, Denies dysuria and Denies urinary urgency Musc Denies back pain and Denies neck pain Skin/Breast Denies rash Neuro Denies dizziness and Denies headache(s) Endo Denies fatigue and Denies palpitations Physical exam (Primary Care) Vital Signs: Last Vital Signs Pulse 74 03/04/24 11:06 BP 138/80 03/04/24 11:06 Pulse Ox 97 03/04/24 11:06 Oxygen Delivery Method Room Air 03/04/24 11:06 BMI result Body Mass Index 44.5 Tobacco/Smoking Status: Tobacco use Status Tobacco use date assessed 10/31/23 03/04/24 11:11 Patient Tobacco Use Status Never used Tobacco 03/04/24 11:11 e-Cigarette/Vaping Use Never Used 03/04/24 11:11 PHQ-9: PHQ-9 Score PHQ-9: Total score 0 03/04/24 11:49 Depression Screening Interpretation: Negative Thrive Assessment: Date of Thrive Assessment Date Thrive assessed 03/04/24 03/04/24 11:11 Currently or been in a relationship where the following occur: no concerns reported Const General: no acute distress and alert HENMT Ears: TM's normal bilaterally and EAC's normal Throat: Yes posterior oropharynx normal and Yes tonsils normal (no TP congestion) Neck Neck: Yes no lymphadenopathy and Yes supple Thyroid: Thyroid normal Resp Auscultation: clear to auscultation bilaterally, no rales and no wheezes Cardio Rate: regular rate Rhythm: regular rhythm Heart sounds: no murmurs GI Palpation (GI): Soft to palpation and nontender Auscultation: normal bowel sounds General: Yes no CVA tenderness Back/Spine/Pelvis Back: no CVA tenderness Thoracic/Lumbar Spine: No lumbar spinal tenderness Skin Rashes: no rashes Extrem General: Yes no clubbing, cyanosis or edema Results Reviewed Results Reviewed: Laboratory Tests 11/27/23 11/27/23 11:59 12:05 WBC 10.8 Hgb 14.1 Hct 41.6 Plt Count 209 Sodium 137 Potassium 3.9 Creatinine 0.76 Estimated GFR > 60 Fasting Glucose 102 H Calcium 9.4 D AST 59 H ALT 105 H Triglycerides 152 H Cholesterol 176 LDL Cholesterol, Calc 110 H HDL Cholesterol 36 L 25-OH Vitamin D Total 60.9 TSH 4.11 H Free T4 1.06 Ur Specific [place] <= 1.005 Urine Protein Trace Urine Glucose (UA) Negative Urine Blood Negative Urine Nitrite Negative Ur Leukocyte Esterase Small (1+) H Assessment and Plan Assessment & Plan (1) Essential hypertension: Code(s): I10 - Essential (primary) hypertension Plan: Reinforced low sodium diet - goal is systolic BP of 120 mm or less Continue Lisinopril 10 mg QD Patient is reminded to continue monitoring her blood pressure regularly (2) Pure hypercholesterolemia: Code(s): E78.00 - Pure hypercholesterolemia, unspecified Plan: Results of her labs done in November 2023 revealed that her serum TG level has increased significantly from previous Patient states that she will try to get her previously ordered labs done ALFRED Reinforced low cholesterol diet Continue Atorvastatin 10 mg QD for now Will recheck her labs and fasting lipids again in 4 months for follow up (3) Anemia: Code(s): D64.9 - Anemia, unspecified Qualifiers: Anemia type: iron deficiency Iron deficiency anemia type: unspecified iron deficiency Qualified Code(s): D50.9 - Iron deficiency anemia, unspecified Plan: She is advised that her H/H were normal / corrected on her labs done back in November 2023 Continue Ferrous Sulfate 325 mg QD Will continue to monitor her CBC regularly (4) Elevated LFTs: Code(s): R79.89 - Other specified abnormal findings of blood chemistry Plan: She is advised that her LFTs were significantly elevated on her labs done back in November 2023 Will have patient recheck her labs ALFRED for follow up Discussed that if her LFTs remain elevated or are worse then previous, we may need to have her STOP taking her Atorvastatin for now and also consider sending her for abdominal US for further evaluation (5) Vitamin D deficiency: Code(s): E55.9 - Vitamin D deficiency, unspecified Plan: Continue Vitamin D3 2000 units QD (6) Morbid obesity with BMI of 45.0-49.9, adult: Code(s): E66.01 - Morbid (severe) obesity due to excess calories; Z68.42 - Body mass index [BMI] 45.0-49.9, adult Plan: Reinforced diet/exercise as tolerated/lose weight Plan Follow up in 4 months Orders: Orders Complete Blood Count Auto Diff 4 Months D64.9 - Anemia, unspecified Lipid Panel 4 Months E78.00 - Pure hypercholesterolemia, unspecified TSH reflex Free T4 4 Months E78.00 - Pure hypercholesterolemia, unspecified Comprehensive [place]. Panel Fast 4 Months E78.00 - Pure hypercholesterolemia, unspecified UA CC w/rflx Micro + Cult 4 Months R30.0 - Dysuria Vitamin D 25-OH Total 4 Months E55.9 - Vitamin D deficiency, unspecified Coding Level of Care Code Est Pt Level 4 (75609) Complex EM visit Add On G2211 Diagnoses Essential hypertension I10 Pure hypercholesterolemia E78.00 Iron deficiency anemia, unspecified iron deficiency anemia type D50.9 Anemia type: iron deficiency Iron deficiency anemia type: unspecified iron deficiency Elevated LFTs R79.89 Vitamin D deficiency E55.9 Morbid obesity with BMI of 45.0-49.9, adult E66.01; Z68.42
[2024-03-04 11:06] VITALS: BP 138/80; PULSE 74; O2SAT 97; BMI 44.5
== END 2024-03-04 11:54 | disposition home or self-care (01) ==
PROVIDERS: PCP Internal Medicine; Visit Provider Internal Medicine
DX: I10 Essential (primary) hypertension (principal); E66.01 Morbid (severe) obesity due to excess calories; Z68.42 Body mass index [BMI] 45.0-49.9, adult; E78.00 Pure hypercholesterolemia, unspecified; D50.9 Iron deficiency anemia, unspecified; R79.89 Other specified abnormal findings of blood chemistry; E55.9 Vitamin D deficiency, unspecified
CPT/HCPCS: 99214

== ENCOUNTER 2024-03-08 12:45 | Outpatient (REF) | payer OTHER, SELFPAY ==
[2024-03-08 14:14] LABS: Alanine Aminotransferase 81 U/L (0-31); Alkaline Phosphatase 59 U/L (39-117); Anion Gap 13 (12-20); Aspartate Amino Transferase 42 U/L (5-31); Blood Urea Nitrogen 11 mg/dL (9-16); Calcium 9.5 mg/dL (8.4-10.2); Carbon Dioxide 29 mmol/L (22-29); Chloride 102 mmol/L (96-108); Cholesterol 170 mg/dL (<200); Estimated Glomerular Filt Rate > 60; Glucose Fasting 93 mg/dL (60-99); HDL Cholesterol 33 mg/dL (>40); LDL Cholesterol Calculated 110 mg/dL (<100); Potassium 4.1 mmol/L (3.3-5.1); Sodium 140 mmol/L (135-145); Total Protein 7.1 g/dL (6.5-8.0); Triglycerides 135 mg/dL (<150)
== END 2024-03-08 12:46 | disposition home or self-care (01) ==
LOC: HO.LAB 12:45
PROVIDERS: PCP Internal Medicine; Visit Provider Internal Medicine
DX: E78.00 Pure hypercholesterolemia, unspecified (principal)
CPT/HCPCS: 36415; 80053; 80061

== ENCOUNTER 2024-04-04 13:55 | Emergency (ER) | payer OTHER, SELFPAY ==
--- NOTE | ~2024-04-04 | XR_ITS ---
EXAMINATION: XR FINGER, LEFT CLINICAL INFORMATION: Thumb, pain, swelling COMPARISON: None available. TECHNIQUE: Three views of the left thumb. FINDINGS: The bones and soft tissues are normal. No fracture. Alignment is anatomic. Joint spaces are maintained. XR/XR finger LT min 2V IMPRESSION: Normal finger radiographs.
[2024-04-04 14:14] VITALS: BP 163/75; PULSE 97; RESP 20; TEMP 36.5; O2SAT 97; BMI 36.9
--- NOTE | 2024-04-04 14:38 | ED.EXTPRO ---
HPI - Extremity Problem General Chief complaint: Extremity Problem Stated complaint: L thumb pain Time Seen by Provider: 04/04/24 14:26 Source: patient Mode of arrival: ambulatory Limitations: no limitations History of Present Illness ED Provider: DORY NATION Narrative: 49 yo female with PMH of HTN, HLD camping this past 4 days today had to pack up and lifted a lot of heavy things - noted pain and bruising with ecchymosis to pad of L thumb does not remember injury can move and bend thumb it just feels tight Complaint: other (thumb pain) Onset (ago): hour(s) (few) Pain Consistency: constant Location: left and upper extremity Quality: aching Radiation: none Relieving factors: immobilization Exacerbating factors: range of motion and palpation Associated symptoms: denies other symptoms Context: other (heavy lifting) Related Data Home Medications ?Medication ?Instructions ?Recorded ?Confirmed cholecalciferol (vitamin D3) 50 50 mcg PO DAILY 05/26/21 03/04/24 mcg (2,000 unit) capsule Previous Rx's ?Medication ?Instructions ?Recorded atorvastatin 10 mg tablet 10 mg PO DAILY 90 days #90 tabs 10/31/23 lisinopril 10 mg tablet 10 mg PO DAILY 90 days #90 tabs 10/31/23 Allergies Allergy/AdvReac Type Severity Reaction Status Date / Time nut - unspecified [nut] Allergy Severe HIVES Verified 04/04/24 14:17 peanut [PEANUT] Allergy Intermediate HIVES Verified 04/04/24 14:17 prednisolone [From STERANE] Allergy Intermediate VISION Verified 04/04/24 14:17 PROBLEMS sesame oil [SESAME OIL] Allergy Intermediate HIVES Verified 04/04/24 14:17 galvan [GALVAN] Allergy Unknown UNKNOWN Verified 04/04/24 14:17 soy [SOY] Allergy Unknown UNKNOWN Verified 04/04/24 14:17 Review of Systems Review of Systems: Constitutional : No Fever, No Chills Cardiovascular : No Chest Pain, No SOB Respiratory : No Cough, No Dyspnea Gastrointestinal : No Nausea, No Vomiting, No Diarrhea, No abdominal Pain Genitourinary : No Dysuria, No Hematuria Musculoskeletal : positive joint pain, No Myalgias, pos Joint Swelling Skin : No Skin lacerations, No rash Neuro : No Weakness, No Numbness, No Loss of Consciousness, No Dizziness, No Headache All other systems reviewed and are negative PMFSH Past Medical History Attestation statement: The following information was validated with the patient. Source: old records reviewed Medical History Tubular adenoma Family history of colon cancer Morbid obesity with BMI of 45.0-49.9, adult Vitamin D deficiency Anemia Pure hypercholesterolemia Essential hypertension Cellulitis of hand, left Thrush Sore throat Surgical History Hx of colonoscopy (~01/16/24) Hx of colonoscopy History of hysteroscopy History of tonsillectomy Family History Family History Father No problems noted. Mother Colon cancer Endometrial cancer Brother In good health Sister In good health Social History Social History Housing: House Patient Tobacco Use Status: Never used Tobacco e-Cigarette/Vaping Use: Never Used Second Hand Smoke Exposure: No Advance Directives: No Advance Directives Information Provided: Yes service: No Current occupational status: employed Cognitive needs: No Hearing needs: No Vision needs: Yes Physical Exam Vital Signs: Vital Signs: Last Vital Signs Temp 97.7 F 04/04/24 14:14 Pulse 97 04/04/24 14:14 Resp 20 04/04/24 14:14 BP 163/75 H 04/04/24 14:14 Pulse Ox 97 04/04/24 14:14 O2 Del Method Room Air 04/04/24 14:14 BMI result Body Mass Index 36.9 Appearance: Alert. Oriented X3. No acute distress. Eyes: Pupils equal, round and reactive to light. ENT: Pharynx normal. Neck: Normal inspection. Neck supple. CVS: Pulses normal. Respiratory: No respiratory distress. Abdomen: atraumatic Skin: Skin warm and dry. Normal skin color. Extremities: No lower extremity edema. L thumb on pad there is a contusion noted the pad is not tense but she reports it feels tingly she has BCR and it appears a blood vessel itself broke. she has normal flexion and extension - no signs of tendon rupture. Neuro: Oriented X 3. No motor deficit. No sensory deficit. Medical Decision Making Medical Decision Making MDM Narrative: 49 yo female wiht PMH of HTN, HLD, here with L thumb pain after lifting the pad has a contusion she has normal flexion and extension she is NV intact it is not tense at this time compressive dressing with precautions and elevation suspect contusion and broken vessel the vessels in her fingers are prominent and evident in all digits on exam. Differential Diagnosis Differential Diagnoses: The differential diagnosis associated with the presentation includes contusion, broken vessel Independent Interpretation I performed an independent interpretation of an: Plain X-Ray (no fx) Radiology Impression Discussion of test interpretation with radiology: I have reviewed the radiologist's reading. External Record Review External record reviewed: Office record Discharge Plan Discharge Clinical Impression: Contusion of left thumb Qualifiers: Encounter type: initial encounter Damage to nail status: without damage Qualified Code(s): S60.012A - Contusion of left thumb without damage to nail, initial encounter Patient Disposition: Home, Self-Care Instructions: Contusion in Adults (ED) Additional Instructions: keep dressing on for 2 hours then keep elevated and no use of left thumb today it is a broken vessel follow up with your primary care doctor if not better by friday avoid aspirin but motrin and tylenol are okay return for any worsening symptoms or concerns EXAMINATION: XR FINGER, LEFT CLINICAL INFORMATION: Thumb, pain, swelling COMPARISON: None available. TECHNIQUE: Three views of the left thumb. FINDINGS: The bones and soft tissues are normal. No fracture. Alignment is anatomic. Joint spaces are maintained. XR/XR finger LT min 2V IMPRESSION: Normal finger radiographs. Prescriptions: No Action cholecalciferol (vitamin D3) 50 mcg (2,000 unit) capsule 50 mcg PO DAILY atorvastatin 10 mg tablet 10 mg PO DAILY 90 Days Qty: 90 1RF lisinopril 10 mg tablet 10 mg PO DAILY 90 Days Qty: 90 1RF Print Language: Telugu
[2024-04-04 15:14] VITALS: BP 163/75; PULSE 97; RESP 20; TEMP 36.5; O2SAT 97
== END 2024-04-04 15:13 | disposition home or self-care (01) ==
PROVIDERS: Emergency Provider Emergency Medicine; PCP Internal Medicine
DX: S60.012A Contusion of left thumb without damage to nail, initial encounter (principal); M79.642 Pain in left hand; X50.0XXA Overexertion from strenuous movement or load, initial encounter; X50.9XXA Other and unspecified overexertion or strenuous movements or postures, initial encounter; Y93.9 Activity, unspecified; Y92.008 Other place in unspecified non-institutional (private) residence as the place of occurrence of the external cause; Y99.8 Other external cause status; Z79.899 Other long term (current) drug therapy
CPT/HCPCS: 73140; 99282; 99283

== ENCOUNTER 2024-04-16 03:14 | Inpatient (IN) | payer OTHER, SELFPAY ==
[2024-04-16] VITALS (7 sets, daily range): BP systolic 134–152; BP diastolic 63–89; PULSE 69–130; RESP 15–20; TEMP 36.1–37.1; O2SAT 94–100; BMI 44.9; BMI 43.5
--- NOTE | ~2024-04-16 | CT_ITS ---
EXAMINATION: CT KNEE WITHOUT CONTRAST, RIGHT CLINICAL INFORMATION: Reason for Exam Prepatellar abscess/cellulitis COMPARISON: None available. TECHNIQUE: No intravenous contrast was utilized. Multidetector helical imaging was performed through the right knee. Coronal and sagittal reformatted images were created. This CT examination was performed using dose optimization techniques as appropriate, variously including the following: *Automated exposure control *Adjustment of mA and/or kV according to patient size (this includes techniques or standardized protocols for targeted exams where dose is matched to indication/reason for exam; i.e. extremities or head) *Use of iterative reconstruction technique DLP: 254 mGy-cm FINDINGS: There is a subcutaneous fluid collection in the anterolateral aspect of the knee measuring up to approximately 8.5 x 3.4 x 11.3 cm. Collection extends from the level of the superior patella to the proximal tibial diaphysis. There are more hyperdense components within the inferior aspect of the collection. No soft tissue gas is seen. Surrounding subcutaneous edema is present as well as overlying skin thickening, and there may be a tract extending to the anterolateral skin surface such as on axial image 115/226. Osseous alignment is anatomic. There is mild to moderate tricompartmental joint space narrowing and osteophyte formation. No acute fracture is seen. No significant joint effusion. CT/CT knee RT wo IV con IMPRESSION: Subcutaneous fluid collection in the anterolateral aspect of the knee measuring up to approximately 8.5 x 3.4 x 11.3 cm, which may represent abscess in the proper clinical setting. Surrounding subcutaneous edema and skin thickening, and possible tract extending to the anterolateral skin surface. Of note, there are some more hyperdense components within the inferior aspect of the collection which could reflect more complex fluid versus blood products.
--- NOTE | 2024-04-16 03:44 | ED.SKABFB ---
HPI - Skin/Abscess/Foreign Bdy General Chief complaint: Skin/Abscess/Foreign Body Stated complaint: right knee infection? Time Seen by Provider: 04/16/24 03:43 Source: patient Mode of arrival: ambulatory Limitations: no limitations History of Present Illness ED Provider: mita NATION narrative: Patient complaining of redness and pain of the right leg for last 10 days patient was not camping came home on next day she noticed slight pimple on the knee with gradually erythema spreading to the cummings got worse in last 24 hours with leaking wound on the top and yesterday patient noticed a temperature of 101.1 degrees Related Data Home Medications ?Medication ?Instructions ?Recorded ?Confirmed cholecalciferol (vitamin D3) 50 50 mcg PO DAILY 05/26/21 03/04/24 mcg (2,000 unit) capsule Previous Rx's ?Medication ?Instructions ?Recorded atorvastatin 10 mg tablet 10 mg PO DAILY 90 days #90 tabs 10/31/23 lisinopril 10 mg tablet 10 mg PO DAILY 90 days #90 tabs 10/31/23 Allergies Allergy/AdvReac Type Severity Reaction Status Date / Time nut - unspecified [nut] Allergy Severe HIVES Verified 04/16/24 03:31 peanut [PEANUT] Allergy Intermediate HIVES Verified 04/16/24 03:31 prednisolone [From STERANE] Allergy Intermediate VISION Verified 04/16/24 03:31 PROBLEMS sesame oil [SESAME OIL] Allergy Intermediate HIVES Verified 04/16/24 03:31 galvan [GALVAN] Allergy Unknown UNKNOWN Verified 04/16/24 03:31 soy [SOY] Allergy Unknown UNKNOWN Verified 04/16/24 03:31 cat dander Allergy Sneezing Verified 04/16/24 06:11 Review of Systems Review of Systems: Yes all other systems are reviewed and are negative PMFSH Past Medical History Medical History Tubular adenoma Family history of colon cancer Morbid obesity with BMI of 45.0-49.9, adult Vitamin D deficiency Anemia Pure hypercholesterolemia Essential hypertension Cellulitis of hand, left Thrush Sore throat Surgical History Hx of colonoscopy (~01/16/24) Hx of colonoscopy History of hysteroscopy History of tonsillectomy Family History Family History Father No problems noted. Mother Colon cancer Endometrial cancer Brother In good health Sister In good health Social History Social History Housing: House Patient Tobacco Use Status: Never used Tobacco Smoked in Last 30 Days: No e-Cigarette/Vaping Use: Never Used Second Hand Smoke Exposure: No Use of substances other than those prescribed or required for medical reasons: No Advance Directives: No Advance Directives Information Provided: No Do you have a plan to hurt others: No Plan Nutrition Risks: No Nutritional Risk Patient : No service: No Current occupational status: employed Cognitive needs: No Hearing needs: No Vision needs: Yes Physical Exam Vital Signs: Vital Signs: Last Vital Signs Temp 98.6 F 04/16/24 06:19 Pulse 82 04/16/24 06:19 Resp 17 04/16/24 06:19 BP 139/64 04/16/24 06:19 Pulse Ox 98 04/16/24 06:19 O2 Del Method Room Air 04/16/24 06:19 BMI result Body Mass Index 44.9 Appearance: Alert. Oriented X3. No acute distress. Eyes: PERRLA, No Nystagmus ENT: Pharynx normal. Oral Mucosa moist Neck: Normal inspection. Neck supple. CVS: Normal heart rate and rhythm. Pulses normal. Respiratory: No respiratory distress. Equal air entry bilateral, no wheezing/rales/rhonchi Abdomen: Soft and nontender. Bowel sounds are present, no mass palpable, no CVA tenderness Skin: Skin warm and dry. Erythema of the right knee spreading to the right cummings Extremities: No lower extremity edema. No calf tenderness Neuro: Oriented X 3. No motor deficit. No sensory deficit.No cerebellar signs , cranial nerves II-XII intact Medications Administered Generic Name Dose Route Start Last Admin Trade Name Freq PRN Reason Stop Dose Admin Piperacillin Sod/Tazobactam 50 mls @ 100 mls/hr 04/16/24 05:15 04/16/24 06:07 Sod 3.375 gm/ Sodium Chloride IV 100 mls/hr Q6H NORA Administration Discontinued Medications Generic Name Dose Route Start Last Admin Trade Name Freq PRN Reason Stop Dose Admin Enoxaparin Sodium 40 mg 04/16/24 05:30 04/16/24 06:07 Enoxaparin Sodium 40 Mg/0.4 Ml Syringe SUBCUT 40 mg Q24H NORA Administration Sodium Chloride 1,000 mls @ 999 mls/hr 04/16/24 03:52 04/16/24 05:30 Ns IV 04/16/24 04:52 Infused .Q1H1M ONE Infusion Vancomycin HCl 1,000 mg/ 270 mls @ 270 mls/hr 04/16/24 04:32 04/16/24 06:00 Sodium Chloride IV 04/16/24 05:31 Infused ONCE ONE Infusion Vancomycin HCl 1,000 mg/ 270 mls @ 270 mls/hr 04/16/24 04:33 04/16/24 06:00 Sodium Chloride IV 04/16/24 05:32 Infused ONCE ONE Infusion Sodium Chloride 1,000 mls @ 999 mls/hr 04/16/24 05:18 04/16/24 06:08 Ns IV 04/16/24 06:18 999 mls/hr .Q1H1M STA Administration Lidocaine HCl 5 ml 04/16/24 06:20 04/16/24 06:42 Lidocaine Hcl 1 % Mpf 5 Ml Vial INFILTRATI 04/16/24 06:21 5 ml ONCE ONE Administration Medical Decision Making Medical Decision Making [facility] Narrative: Patient with cellulitis with prepatellar abscess I and D done about 120 cc pus drained and sent for culture, patient received IV fluids IV antibiotics vancomycin started on Zosyn Differential Diagnosis Differential Diagnoses: The differential diagnosis associated with the presentation includes Prepatellar abscess/cellulitis/septic knee joint Admission/Observation Consideration of admission/observation: Escalation of care including admission/observation considered Consult Healthcare Provider Management of the patient was discussed with: Hospitalist Lab Data [facility] Lab Attestation statement: I reviewed the patient's lab results. 04/16/24 03:50 04/16/24 03:50 Labs: Lab Results 04/16/24 Range/Units 03:50 WBC 12.3 H (4.8-10.8) X10*3/uL RBC 4.37 (4.20-5.50) X10*6/uL Hgb 13.5 (12.0-16.0) g/dl Hct 39.5 (37.0-47.0) % MCV 90.4 (80.0-98.0) fL MCH 30.9 (27.0-33.0) pg MCHC 34.2 (31.0-35.0) g/dl RDW 12.1 (11.0-16.0) % Plt Count 370 D (160-400) X10*3/uL MPV 9.4 (9.4-12.3) fL Immature Gran % (Auto) 0.2 (0.0-0.4) % Neut % (Auto) 72.7 (45-73) % Lymph % (Auto) 14.9 L (20-40) % [place] % (Auto) 9.4 (2-11) % Eos % (Auto) 2.1 (0-4) % Baso % (Auto) 0.7 (0-2) % Lymph # (Auto) 1.8 (1.2-4.9) X10*3/uL [place] # (Auto) 1.2 (0.1-1.2) X10*3/uL Eos # (Auto) 0.3 (0.0-0.4) X10*3/uL Baso # (Auto) 0.1 (0.0-0.2) X10*3/uL Abs Immat Gran (auto) 0.03 (0.00-0.03) X10*3/uL Absolute Neuts (auto) 8.9 H (2.0-8.3) x10*3/uL Absolute Nucleated RBC 0.000 (0.0-0.012) X10*3/uL Nucleated RBC % (auto) 0.0 (0.0-0.2) /100WBC Sodium 139 (135-145) mmol/L Potassium 3.9 (3.3-5.1) mmol/L Chloride 103 (96-108) mmol/L Carbon Dioxide 24 (22-29) mmol/L Anion Gap 16 (12-20) BUN 15 (9-16) mg/dL Creatinine 1.05 (0.5-1.4) mg/dL Estim Creat Clear Calc 92.0 Estimated GFR 55 Random Glucose 149 H (60-115) mg/dL Lactic Acid 2.5 H* (0.5-2.0) mmol/L Calcium 9.7 (8.4-10.2) mg/dL Total Bilirubin 0.5 (0.0-1.0) mg/dL AST 17 (5-31) U/L ALT 32 H (0-31) U/L Alkaline Phosphatase 69 (39-117) U/L Total Protein 7.3 (6.5-8.0) g/dL Albumin 3.7 (3.5-5.0) g/dL Independent Interpretation I performed an independent interpretation of an: CT Scan Radiology Impression Discussion of test interpretation with radiology: I have reviewed the radiologist's reading. Radiologist Impression: CT/CT knee RT wo IV con IMPRESSION: Subcutaneous fluid collection in the anterolateral aspect of the knee measuring up to approximately 8.5 x 3.4 x 11.3 cm, which may represent abscess in the proper clinical setting. Surrounding subcutaneous edema and skin thickening, and possible tract extending to the anterolateral skin surface. Of note, there are some more hyperdense components within the inferior aspect of the collection which could reflect more complex fluid versus blood products. Procedures Abscess I/D Site: lower extremity (Knee) Side (if applicable): right Local Anesthetic: lidocaine 1% Amount of anesthesia used (mL): 10 Technique: incised with blade Amount of fluid expressed (mL): 120 Sent for culture/gram staining?: Yes Irrigation: Yes Packing used?: iodoform Discharge Plan Discharge Clinical Impression: Abscess of bursa of right knee, Cellulitis Patient Disposition: Admitted As Inpatient
[2024-04-16 03:57] LABS: MANUAL DIFF FLAG NO
[2024-04-16 03:58] LABS: Basophils Absolute Auto 0.1 X10*3/uL (0.0-0.2); Basophils Percent Auto 0.7 % (0-2); Eosinophils Absolute Auto 0.3 X10*3/uL (0.0-0.4); Eosinophils Percent Auto 2.1 % (0-4); Hematocrit 39.5 % (37.0-47.0); Hemoglobin 13.5 g/dl (12.0-16.0); Imm Gran Abs Auto 0.03 X10*3/uL (0.00-0.03); Imm Gran Pct Auto 0.2 % (0.0-0.4); Lymphocytes Absolute Auto 1.8 X10*3/uL (1.2-4.9); Lymphocytes Percent Auto 14.9 % (20-40); Mean Corpuscular HGB Conc 34.2 g/dl (31.0-35.0); Mean Corpuscular Hemoglobin 30.9 pg (27.0-33.0); Mean Corpuscular Volume 90.4 fL (80.0-98.0); Mean Platelet Volume 9.4 fL (9.4-12.3); Monocytes Absolute Auto 1.2 X10*3/uL (0.1-1.2); Monocytes Percent Auto 9.4 % (2-11); Neutrophils Absolute Auto 8.9 x10*3/uL (2.0-8.3); Neutrophils Percent Auto 72.7 % (45-73); Platelet Count 370 X10*3/uL (160-400); Red Blood Count 4.37 X10*6/uL (4.20-5.50); Red Cell Distribution Width 12.1 % (11.0-16.0); White Blood Count 12.3 X10*3/uL (4.8-10.8)
[2024-04-16] MEDS: 0.9 % Sodium Chloride 1,000 ML 999 ML IV ×2 (04:10→06:08)
[2024-04-16 04:15] LABS: Alanine Aminotransferase 32 U/L (0-31); Albumin Level 3.7 g/dL (3.5-5.0); Alkaline Phosphatase 69 U/L (39-117); Anion Gap 16 (12-20); Aspartate Amino Transferase 17 U/L (5-31); Bilirubin Total 0.5 mg/dL (0.0-1.0); Blood Urea Nitrogen 15 mg/dL (9-16); Calcium 9.7 mg/dL (8.4-10.2); Carbon Dioxide 24 mmol/L (22-29); Chloride 103 mmol/L (96-108); Estimated Glomerular Filt Rate 55; Glucose Random 149 mg/dL (60-115); Potassium 3.9 mmol/L (3.3-5.1); Sodium 139 mmol/L (135-145); Total Protein 7.3 g/dL (6.5-8.0)
[2024-04-16 04:16] LABS: Lactic Acid 2.5 mmol/L (0.5-2.0)
[2024-04-16] MEDS: vancomycin HCL 1,000 MG in 0.9 % Sodium Chloride 250 ML 270 MG IV ×2 (04:47→04:48)
--- NOTE | 2024-04-16 05:23 | PM.IMHP ---
History of Present Illness Date of Service: 04/16/24 Attending physician on admission: Jerardo Cruz Chief Complaint: Right knee swelling and redness Marissa Roberson is a 49 years old woman with past medical history significant for essential hypertension and hyperlipidemia presents to the emergency department complaining of worsening right knee and leg swelling redness and pain over the last several days. She also reported fever of 101.1. Patient said that on April 04 she was camping and had to use her right knee to boost up a cooler while packing up. The same day she noted a lump at the base of her right thumb for which she was seen in the emergency department. She was found to have a broken vessel/contusion to the left thumb (finger x-ray was negative). This has resolved. Couple of days later she noted a bruise around her right knee area that has been getting worse, more red and swollen. Tonight, her right knee and leg became significantly swollen and noted some spontaneous drainage of clear yellowish fluid. Pain increases with ambulation. She has been taking Advil for pain. She denied any headache, dizziness, nausea, vomiting, abdominal pain or diarrhea. She denied tobacco smoking or illicit drug use. She drinks alcohol occasionally. In the ED, she was found to have stable vital signs. Tachycardia of 130 was reported around 03:30. Blood workup showed leukocytosis of 12.3. Hemoglobin and platelets are normal. There are no electrolyte imbalances. Random glucose 149. There is minimal lactic acidosis of 2.5. There are no electrolyte imbalances. LFTs are unremarkable except for very minimal elevation of ALT. Right knee CT scan showed subcutaneous fluid collection in the anterolateral aspect of the knee measuring up to approximately 8.5 x 3.4 x 11.3 cm, which may represent abscess in the appropriate clinical setting. ED tx: NS 1 L bolus, vancomycin 2 g IV Review of Systems Review of Systems: All 12 systems were reviewed and normal except as noted in HPI. [facility] Medical History Tubular adenoma Family history of colon cancer Morbid obesity with BMI of 45.0-49.9, adult Vitamin D deficiency Anemia Pure hypercholesterolemia Essential hypertension Cellulitis of hand, left Thrush Sore throat Family History Father No problems noted. Mother Colon cancer Endometrial cancer Brother In good health Sister In good health Surgical History Hx of colonoscopy (~01/16/24) Hx of colonoscopy History of hysteroscopy History of tonsillectomy Social History Housing: House Patient Tobacco Use Status: Never used Tobacco e-Cigarette/Vaping Use: Never Used Second Hand Smoke Exposure: No service: No Current occupational status: employed Cognitive needs: No Hearing needs: No Vision needs: Yes Meds Allergies Allergy/AdvReac Type Severity Reaction Status Date / Time nut - unspecified [nut] Allergy Severe HIVES Verified 04/16/24 03:31 peanut [PEANUT] Allergy Intermediate HIVES Verified 04/16/24 03:31 prednisolone [From STERANE] Allergy Intermediate VISION Verified 04/16/24 03:31 PROBLEMS sesame oil [SESAME OIL] Allergy Intermediate HIVES Verified 04/16/24 03:31 galvan [GALVAN] Allergy Unknown UNKNOWN Verified 04/16/24 03:31 soy [SOY] Allergy Unknown UNKNOWN Verified 04/16/24 03:31 Active Medications: Current Medications Acetaminophen (Acetaminophen 325 Mg Tablet) 975 mg PO Q6H PRN PRN Reason: Pain, Mild (Pain Scale 1-3), fever or headache Enoxaparin Sodium (Enoxaparin Sodium 40 Mg/0.4 Ml Syringe) 40 mg SUBCUT Q24H NORA Vancomycin HCl 1,000 mg/ (Sodium Chloride) 270 mls @ 270 mls/hr IV ONCE ONE Stop: 04/16/24 05:31 Last Admin: 04/16/24 04:47 Dose: 270 mls/hr Vancomycin HCl 1,000 mg/ (Sodium Chloride) 270 mls @ 270 mls/hr IV ONCE ONE Stop: 04/16/24 05:32 Last Admin: 04/16/24 04:48 Dose: 270 mls/hr Piperacillin Sod/Tazobactam (Sod 3.375 gm/ Sodium Chloride) 50 mls @ 100 mls/hr IV Q6H NORA Sodium Chloride (Ns) 1,000 mls @ 999 mls/hr IV .Q1H1M STA Stop: 04/16/24 06:18 Ibuprofen (Ibuprofen 400 Mg Tablet) 400 mg PO Q6H PRN PRN Reason: Pain, Severe (Pain Scale 7-10) Sodium Chloride (0.9 % Sodium Chloride Flush 3 Ml Syringe) 3 ml IVFLUSH QSHIFT [facility] Home Medications ?Medication ?Instructions ?Recorded ?Confirmed ?Last Taken ?Type cholecalciferol (vitamin D3) 50 50 mcg PO DAILY 05/26/21 03/04/24 01/15/24 History mcg (2,000 unit) capsule Physical Exam Vital Signs and Narrative: Vital Signs: Last Vital Signs Temp 98.8 F 04/16/24 04:04 Pulse 98 04/16/24 04:04 Resp 15 04/16/24 04:04 BP 151/80 H 04/16/24 04:04 Pulse Ox 100 04/16/24 04:04 O2 Del Method Room Air 04/16/24 04:04 BMI result Body Mass Index 44.9 Constitutional - Awake and Alert, No apparent distress. Obese. Pleasant. Cooperative. Afebrile. HEENT - Normocephalic. Heart - RRR, No murmur. Lungs - Normal lung expansion, Normal respiratory effort, No respiratory distress, CTA bilaterally Abdomen - Nontender. Extremities - Right knee: Marked erythema, edema and tenderness in the anterior aspect, serous fluid noted. No open wounds. ROM intact. Musculoskeletal - Normal inspection, normal ROM Skin - Warm/Dry Neurological - Alert & oriented x3. No focal weakness grossly noted. Normal speech. Psychological - Appropriate affect Results Labs 04/16/24 03:50 04/16/24 03:50 Labs: Laboratory Results - last 24 hr 04/16/24 03:50 MCV 90.4 MCH 30.9 MCHC 34.2 RDW 12.1 Plt Count 370 D MPV 9.4 Immature Gran % (Auto) 0.2 Neut % (Auto) 72.7 Lymph % (Auto) 14.9 L [place] % (Auto) 9.4 Eos % (Auto) 2.1 Baso % (Auto) 0.7 Lymph # (Auto) 1.8 [place] # (Auto) 1.2 Eos # (Auto) 0.3 Baso # (Auto) 0.1 Abs Immat Gran (auto) 0.03 Absolute Neuts (auto) 8.9 H Absolute Nucleated RBC 0.000 Nucleated RBC % (auto) 0.0 Anion Gap 16 Estim Creat Clear Calc 92.0 Estimated GFR 55 Random Glucose 149 H Lactic Acid 2.5 H* Calcium 9.7 Total Bilirubin 0.5 AST 17 ALT 32 H Alkaline Phosphatase 69 Total Protein 7.3 Albumin 3.7 Assessment and Plan (1) Abscess of right knee: Status: Acute (2) Cellulitis of right lower extremity: Status: Acute (3) Hypertension: Qualifiers: Hypertension type: primary hypertension Qualified Code(s): I10 - Essential (primary) hypertension Status: Acute (4) Hyperlipidemia: Qualifiers: Hyperlipidemia type: unspecified Qualified Code(s): E78.5 - Hyperlipidemia, unspecified Status: Acute Plan Marissa Roberson is a 49 y/o woman admitted with: Right knee abscess associated with right lower extremity cellulitis. Admit to hospitalist service. Continue empiric IV antibiotic therapy with vancomycin and IV fluids. Add therapy with Zosyn IV. Pain control with ibuprofen. Ice pack as needed. Elevate extremity. Orthopedic surgery consult. SIRS criteria present: Mild leukocytosis, tachycardia. No sepsis. Blood culture obtained -will follow results. Continue to monitor WBC count. Essential hypertension. Continue lisinopril. Hyperlipidemia. Continue atorvastatin. Obesity class III, BMI 45.0 kg/m2. Weight loss. DVT prophylaxis: Lovenox Code status: Full Patient will need hospitalization for at least 2 midnights for IV antibiotic therapy and evaluation by Orthopedic surgery Service for possible intervention. Quality Stroke Does the patient have a stroke diagnosis?: No VTE Prior VTE?: No VTE Risk Level:: Medical - moderate - high VTE Device Contraindication: Treatment Not Indicated VTE Drug Contraindication: N/A - Med Ordered
[2024-04-16 05:56] LABS: Reflex Lactate? Lactic Acid Added
[2024-04-16] MEDS: Enoxaparin Sodium 40 MG/0.4 ML SYRINGE SUBCUT (06:07)
[2024-04-16] MEDS: Piperacillin Sodium/Tazobactam 3.375 GM in 0.9 % Sodium Chloride 50 ML IV ×4 (06:07→22:30)
[2024-04-16 06:21] LABS: ~Lactic Acid-LAB USE ONLY 0.9 mmol/L (0.5-2.0)
[2024-04-16] MEDS: Lidocaine HCl 1 % MPF 5 ML VIAL INFILTRATI (06:42)
--- NOTE | 2024-04-16 07:08 | PC.NURSE ---
Patient presented to ED for evaluation of worsening pain, edema, and erythema in right knee. Patient changed into a hospital attire. Patient placed on bus monitor. 20 G IV line established in L AC.Labs drawn and sent to lab. Patient is alert and oriented x3. Patient is able to make her needs known. She ambulates independently with a steady gait. Patient medicated per NOV. Call andrews placed in patient's reach, plan of care ongoing.
[2024-04-16] MEDS: 0.9 % Sodium Chloride Flush 3 ML SYRINGE IVFLUSH ×3 (07:12→22:31)
[2024-04-16] MEDS: Ibuprofen 400 MG TABLET PO ×3 (07:13→22:30)
--- NOTE | 2024-04-16 07:14 | PC.NURSE ---
Dr. Hayes performed I&D to right knee at bedside, drained and cultured, specimen sent to lab.
--- NOTE | 2024-04-16 07:26 | MHC.EDTECH ---
Breakfast tray place in pt's room at bedside on table
--- NOTE | 2024-04-16 07:34 | PC.NURSE ---
alert, speech clear, nad, states pain in r leg s/p i and d, motrin given , wants lisinopril and lipitor at 1530 as she normally takes them then, pharmacy contacted
--- NOTE | 2024-04-16 08:27 | PHA.PROG ---
Admission Date/Time: April 16, 2024 05:16 Indication: SKIN Weight in k.1 kg Adjusted body weight in Kg: Jackson body weight in Kg: Obesity Dosing Indication % IBW: Serum Creatinine - Last 168 Hours 04/16/24 03:50 Creatinine 1.05 Estimated CrCl and GFR - Last 168 Hours 04/16/24 03:50 Estim Creat Clear Calc 92.0 Estimated GFR 55 Vancomycin Loading Dose: 2000 MG Current Vancomycin Dosing Regimen: 750 MG Q12H Vancomycin Monitoring using AUC goal of 400 - 600 range with trough as surrogate marker: HEL=[id number] TROUGH=13.7 Date and Time for next Vancomycin Level to be drawn: 04/17/24 @1500 Pharmacist Comments on Vancomycin Plan: Vancomycin dosing will take advantage of [employer] as a clinical decision support tool that uses Bayesian modeling to calculate individual patient's pharmacokinetic parameters and forecast the patient's drug concentration time course with the target goal AUC 24 range of 400 - 600 mg/L/hr.
--- NOTE | 2024-04-16 08:50 | P.CONOP_ITS ---
History of Present Illness HPI Consult date: 04/16/24 Chief complaint: left lower extremity cellulitis Narrative: MS. Roberson is a 49 yo female with a PMH significant for HTN, and HLD, who presents to the ED complaining of redness and pain of the right leg for last 10 days. Patient reports that she was camping and came home on . She was packing the car and lifted a cooler with the help of her right knee. The next day she noticed there was a small bruise forming. Over the following days the erythema began to spread to the cummings and down her leg. The past two days she has noticed a significant increase in redness and pain. There is an area superior and lateral to the patella that came to a head and began to drain yelloish fluid. The patient also reports that yesterday patient had a temperature of 101.1 degrees. The ED drained the abscess and packed the wound, pictures are located in the prior notes. The patient was started on IV abx. Orthopedics was consulted to asses any addition intervention. Review of Systems 2 Review of Systems: Yes all other systems are reviewed and are negative PMFSH Past Medical History Medical History Tubular adenoma Family history of colon cancer Morbid obesity with BMI of 45.0-49.9, adult Vitamin D deficiency Anemia Pure hypercholesterolemia Essential hypertension Cellulitis of hand, left Thrush Sore throat Family History Family History Father No problems noted. Mother Colon cancer Endometrial cancer Brother In good health Sister In good health Surgical History Surgical History Hx of colonoscopy (~01/16/24) Hx of colonoscopy History of hysteroscopy History of tonsillectomy Social History Social History Household Members: None Housing: Apartment Do you presently have visiting nurse or other home services: No Patient Tobacco Use Status: Never used Tobacco e-Cigarette/Vaping Use: Never Used Second Hand Smoke Exposure: No service: No Current occupational status: employed Cognitive needs: No Hearing needs: No Vision needs: Yes Meds Allergies Allergy/AdvReac Type Severity Reaction Status Date / Time nut - unspecified [nut] Allergy Severe HIVES Verified 04/16/24 03:31 peanut [PEANUT] Allergy Intermediate HIVES Verified 04/16/24 03:31 prednisolone [From STERANE] Allergy Intermediate VISION Verified 04/16/24 03:31 PROBLEMS sesame oil [SESAME OIL] Allergy Intermediate HIVES Verified 04/16/24 03:31 galvan [GALVAN] Allergy Unknown UNKNOWN Verified 04/16/24 03:31 soy [SOY] Allergy Unknown UNKNOWN Verified 04/16/24 03:31 cat dander Allergy Sneezing Verified 04/16/24 06:11 Active Medications: Current Medications Acetaminophen (Acetaminophen 325 Mg Tablet) 975 mg PO Q6H PRN PRN Reason: Pain, Mild (Pain Scale 1-3), fever or headache Atorvastatin Calcium (Atorvastatin Calcium 10 Mg Tablet) 10 mg PO ONCE ONE Stop: 04/16/24 15:31 Enoxaparin Sodium (Enoxaparin Sodium 40 Mg/0.4 Ml Syringe) 40 mg SUBCUT Q24H NORA Piperacillin Sod/Tazobactam (Sod 3.375 gm/ Sodium Chloride) 50 mls @ 100 mls/hr IV Q6H NORA Last Admin: 04/16/24 06:07 Dose: 100 mls/hr Vancomycin HCl 750 mg/ Sodium (Chloride) 265 mls @ 265 mls/hr IV Q12H NORA Ibuprofen (Ibuprofen 400 Mg Tablet) 400 mg PO Q6H PRN PRN Reason: Pain, Severe (Pain Scale 7-10) Last Admin: 04/16/24 07:13 Dose: 400 mg Lisinopril (Lisinopril 10 Mg Tablet) 10 mg PO ONCE ONE; Protocol Stop: 04/16/24 15:31 Pharmacy Consult (Consult Rx Vancomycin Dosing) 1 each MISCELLANE DAILY PRN PRN Reason: Consult order Sodium Chloride (0.9 % Sodium Chloride Flush 3 Ml Syringe) 3 ml IVFLUSH QSHIFT [facility] Last Admin: 04/16/24 07:12 Dose: 3 ml Home Medications ?Medication ?Instructions ?Recorded ?Confirmed ?Last Taken ?Type cholecalciferol (vitamin D3) 50 50 mcg PO DAILY 05/26/21 04/16/24 04/15/24 History mcg (2,000 unit) capsule atorvastatin 10 mg tablet 10 mg PO DAILY@1530 0704/16/24 04/13/24 History lisinopril 10 mg tablet 10 mg PO DAILY@1530 04/16/24 04/16/24 04/15/24 History Physical Exam 2 Vital Signs: Vital Signs: Last Vital Signs Temp 98.6 F 04/16/24 06:19 Pulse 82 04/16/24 06:19 Resp 17 04/16/24 06:19 BP 139/64 04/16/24 06:19 Pulse Ox 98 04/16/24 06:19 O2 Del Method Room Air 04/16/24 06:19 BMI result Body Mass Index 44.9 Extrem: Other: Right knee cellulitic with extension to the anterior aspect of the tibial to the ankle. There is a quarter sized area superior and lateral to the patella which was opened to drain the abcess, packing place. No active drainage. No evidence of extention into the joint. No evidence of septic joint. NVI. Results Labs 04/16/24 03:50 04/16/24 03:50 Labs: Abnormal lab results 04/16/24 Range/Units 03:50 WBC 12.3 H (4.8-10.8) X10*3/uL Lymph % (Auto) 14.9 L (20-40) % Absolute Neuts (auto) 8.9 H (2.0-8.3) x10*3/uL Random Glucose 149 H (60-115) mg/dL Lactic Acid 2.5 H* (0.5-2.0) mmol/L ALT 32 H (0-31) U/L H & H 04/16/24 Range/Units 03:50 Hgb 13.5 (12.0-16.0) g/dl Hct 39.5 (37.0-47.0) % All other labs normal. Assessment and Plan (1) Cellulitis of right lower extremity: Status: Acute Continue IV abx Wound care as needed for abscess No evidence of septic joint Pain management as needed CT scan reviewed: Subcutaneous fluid collection in the anterolateral aspect of the knee measuring up to approximately 8.5 x 3.4 x 11.3 cm, which may represent abscess in the proper clinical setting. Surrounding subcutaneous edema and skin thickening, and possible tract extending to the anterolateral skin surface. Of note, there are some more hyperdense components within the inferior aspect of the collection which could reflect more complex fluid versus blood products. No additional orthopedic intervention is needed at this time (2) Abscess of right knee: Status: Acute Procedures Date of Service Date of Service: 04/16/24
--- NOTE | 2024-04-16 08:52 | PHA.MEDREC ---
Pharmacy Consult ? Medication Reconciliation Pharmacy has completed the medication reconciliation.
--- NOTE | 2024-04-16 11:41 | MHC.CM.PN ---
CM met with Patient at bedside. 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 Home/self care is the goal and CM has initiated and will follow for dc planning. PCP is Dr. Benitez Espino.
--- NOTE | 2024-04-16 14:10 | PM.EVENT ---
Event Note Date of Service: 04/16/24 Event Note: Seen and examined this morning Follow-up for right knee infection reports pain is controlled if not moving Right knee abscess associated with right lower extremity cellulitis s/p I&D in the ED with drainage of 120 cc purulent material continue IV vancomycin and zosyn follow culture results Orthopedic surgery consult. Essential hypertension. Continue lisinopril. Hyperlipidemia. Continue atorvastatin. Obesity class III, BMI 43.5 kg/m2. Weight loss. Further management as per admission H&P Time Spent With Patient Time: Total time managing care of this patient today ____ minutes.
[2024-04-16] MEDS: Atorvastatin Calcium 10 MG TABLET PO (15:48)
[2024-04-16] MEDS: lisinopriL 10 MG TABLET PO (15:48)
[2024-04-16] MEDS: vancomycin HCL 750 MG in 0.9 % Sodium Chloride 250 ML 265 MG IV (16:39)
[2024-04-17 03:36] VITALS: BP 134/66; PULSE 65; RESP 16; TEMP 36.2; O2SAT 99
[2024-04-17] MEDS: vancomycin HCL 750 MG in 0.9 % Sodium Chloride 250 ML 265 MG IV (04:26)
[2024-04-17] MEDS: Piperacillin Sodium/Tazobactam 3.375 GM in 0.9 % Sodium Chloride 50 ML IV ×2 (05:41→10:33)
[2024-04-17] MEDS: Ibuprofen 400 MG TABLET PO ×3 (05:45→19:32)
[2024-04-17 06:28] LABS: MANUAL DIFF FLAG NO
[2024-04-17 06:35] LABS: Basophils Absolute Auto 0.1 X10*3/uL (0.0-0.2); Basophils Percent Auto 0.6 % (0-2); Eosinophils Absolute Auto 0.4 X10*3/uL (0.0-0.4); Eosinophils Percent Auto 4.2 % (0-4); Hemoglobin 12.9 g/dl (12.0-16.0); Imm Gran Abs Auto 0.06 X10*3/uL (0.00-0.03); Imm Gran Pct Auto 0.6 % (0.0-0.4); Lymphocytes Absolute Auto 2.9 X10*3/uL (1.2-4.9); Mean Corpuscular HGB Conc 33.1 g/dl (31.0-35.0); Mean Corpuscular Hemoglobin 30.2 pg (27.0-33.0); Mean Corpuscular Volume 91.3 fL (80.0-98.0); Mean Platelet Volume 9.4 fL (9.4-12.3); Monocytes Absolute Auto 0.9 X10*3/uL (0.1-1.2); Neutrophils Absolute Auto 5.3 x10*3/uL (2.0-8.3); Neutrophils Percent Auto 55.6 % (45-73); Platelet Count 342 X10*3/uL (160-400); Red Blood Count 4.27 X10*6/uL (4.20-5.50); Red Cell Distribution Width 12.5 % (11.0-16.0); White Blood Count 9.6 X10*3/uL (4.8-10.8)
[2024-04-17 06:53] LABS: Anion Gap 13 (12-20); Blood Urea Nitrogen 13 mg/dL (9-16); Calcium 9.1 mg/dL (8.4-10.2); Carbon Dioxide 24 mmol/L (22-29); Chloride 107 mmol/L (96-108); Creatinine Clr Calc Pharmacy 115.6; Estimated Glomerular Filt Rate > 60; Glucose Random 86 mg/dL (60-115); Sodium 140 mmol/L (135-145)
[2024-04-17 07:40] VITALS: BP 140/70; PULSE 69; RESP 16; TEMP 36.8; O2SAT 97
[2024-04-17] MEDS: 0.9 % Sodium Chloride Flush 3 ML SYRINGE IVFLUSH ×3 (09:47→20:25)
[2024-04-17] MEDS: Enoxaparin Sodium 40 MG/0.4 ML SYRINGE SUBCUT (09:47)
[2024-04-17 15:37] VITALS: BP 129/62; PULSE 63; RESP 16; TEMP 36.3; O2SAT 99
[2024-04-17 15:39] VITALS: BP 129/62
[2024-04-17] MEDS: lisinopriL 10 MG TABLET PO (15:39)
[2024-04-17] MEDS: Cholecalciferol (Vitamin D3) 25 MCG TABLET 50 MCG PO (15:40)
[2024-04-17] MEDS: Atorvastatin Calcium 10 MG TABLET PO (15:40)
[2024-04-17 15:45] LABS: Vancomycin Random < 2.0 mcg/mL (15-20)
--- NOTE | 2024-04-17 16:41 | P.PNIM_ITS ---
Subjective Subjective Date of Service: 04/17/24 Interval History: Seen and examined this morning Follow-up for prepatellar abscess No overnight events. Pain under adequate control no fever or chills erythema improving Review of Systems Review of Systems: Yes all other systems are reviewed and are negative Constitutional Constitutional: Denies chills and Denies fever(s) Physical Exam 2 Vital Signs: Vital Signs: Last Vital Signs Temp 97.3 F 04/17/24 15:37 Pulse 63 04/17/24 15:37 Resp 16 04/17/24 15:37 BP 129/62 04/17/24 15:39 Pulse Ox 99 04/17/24 15:37 O2 Del Method Room Air 04/17/24 15:37 BMI result Body Mass Index 43.5 Const: General: cooperative, comfortable, no acute distress, alert and awake Nutritional Appearance: obese Orientation/consciousness: patient oriented x3 Resp: Effort & Inspection: normal respiratory effort, able to speak in complete sentences, no respiratory distress and no use of accessory muscles A uscultation: clear to auscultation bilaterally Cardio: Rate: regular rate GI: Inspection: No distended Palpation (GI): Soft to palpation and nontender Skin: Other: wound draining; erythema of surrounding area and lower leg improving Neuro: General: patient oriented x3, moves all extremities and CN's II-XI intact bilaterally Objective Data Active Medications Acetaminophen (Acetaminophen 325 Mg Tablet) 975 mg PO Q6H PRN PRN Reason: Pain, Mild (Pain Scale 1-3), fever or headache Atorvastatin Calcium (Atorvastatin Calcium 10 Mg Tablet) 10 mg PO DAILY@1530 [facility] Last Admin: 04/17/24 15:40 Dose: 10 mg Documented By: NIMO Enoxaparin Sodium (Enoxaparin Sodium 40 Mg/0.4 Ml Syringe) 40 mg SUBCUT Q24H [facility] Last Admin: 04/17/24 09:47 Dose: 40 mg Documented By: BLADIMIR Piperacillin Sod/Tazobactam (Sod 3.375 gm/ Sodium Chloride) 50 mls @ 100 mls/hr IV Q6H [facility] Last Infusion: 04/17/24 11:10 Dose: Infused Documented By: BLADIMIR Vancomycin HCl (Vancomycin/Ns) 2,000 mg in 500 mls @ 250 mls/hr IV ONCE ONE Stop: 04/17/24 17:59 Ibuprofen (Ibuprofen 400 Mg Tablet) 400 mg PO Q6H PRN PRN Reason: Pain, Severe (Pain Scale 7-10) Last Admin: 04/17/24 13:45 Dose: 400 mg Documented By: BLADIMIR Lisinopril (Lisinopril 10 Mg Tablet) 10 mg PO DAILY@1530 [facility]; Protocol Last Admin: 04/17/24 15:39 Dose: 10 mg Documented By: NIMO Oxycodone HCl (Oxycodone Hcl Immed Release 5 Mg Tablet) 5 mg PO Q6H PRN PRN Reason: Pain, Moderate(Pain Scale 4-6) Pharmacy Consult (Consult Rx Vancomycin Dosing) 1 each MISCELLANE DAILY PRN PRN Reason: Consult order Sodium Chloride (0.9 % Sodium Chloride Flush 3 Ml Syringe) 3 ml IVFSH [facility] Last Admin: 04/17/24 15:41 Dose: 3 ml Documented By: NIMO Vitamin D (Cholecalciferol (Vitamin D3) 25 Mcg Tablet) 50 mcg PO DAILY@1530 [facility] Last Admin: 04/17/24 15:40 Dose: 50 mcg Documented By: NIMO Labs 04/17/24 05:29 04/17/24 05:29 Labs: Laboratory Results - last 24 hr 04/17/24 04/17/24 05:29 15:17 MCV 91.3 MCH 30.2 MCHC 33.1 RDW 12.5 Plt Count 342 MPV 9.4 Immature Gran % (Auto) 0.6 H Neut % (Auto) 55.6 Lymph % (Auto) 30.0 [place] % (Auto) 9.0 Eos % (Auto) 4.2 H Baso % (Auto) 0.6 Lymph # (Auto) 2.9 [place] # (Auto) 0.9 Eos # (Auto) 0.4 Baso # (Auto) 0.1 Abs Immat Gran (auto) 0.06 H Absolute Neuts (auto) 5.3 Absolute Nucleated RBC 0.000 Nucleated RBC % (auto) 0.0 Anion Gap 13 Estim Creat Clear Calc 115.6 Estimated GFR > 60 Random Glucose 86 Calcium 9.1 D Random Vancomycin < 2.0 L Microbiology Microbiology Results: Microbiology 04/16/24 06:50 Gram Stain - Final Knee,Right Routine Culture - Preliminary Staphylococcus aureus 04/16/24 03:56 Gram Stain - Final Knee,Right Routine Culture - Preliminary No growth to date. 04/16/24 04:32 Blood Culture - Preliminary Blood - Venous No growth after 24 hours. 04/16/24 03:50 Blood Culture - Preliminary Blood - Venous No growth after 24 hours. Assessment and Plan (1) Cellulitis: Status: Acute (2) Abscess of bursa of right knee: Status: Acute Plan This is a 49-year-old female with history of hypertension, hyperlipidemia who presents to the emergency department with redness and swelling of right knee and lower leg found to have abscess drained in the emergency department Right knee abscess associated with right lower extremity cellulitis s/p I&D in the ED with drainage of 120 cc purulent material Initially treated with IV vancomycin and zosyn Wound culture growing staph aureus, we will stop Zosyn Blood cultures pending Seen by Orthopedic surgery, no joint involvement, no further need for orthopedic intervention General surgery consult pending Continue local wound care Essential hypertension. Continue lisinopril. Hyperlipidemia. Continue atorvastatin. Obesity class III, BMI 43.5 kg/m2. Weight loss. DVT prophylaxis Lovenox Patient requires ongoing inpatient stay for management of abscess/cellulitis requiring IV antibiotics, wound care to prevent progression of infection Quality Stroke Does the patient have a stroke diagnosis?: No VTE Prior VTE?: No VTE Risk Level:: Medical - moderate - high VTE Device Contraindication: Treatment Not Indicated VTE Drug Contraindication: N/A - Med Ordered
[2024-04-17] MEDS: vancomycin/NS 2,000 MG/500 ML PLAST..BAG 250 MG IV (16:42)
--- NOTE | 2024-04-17 17:57 | PC.NURSE ---
Addendum entered by Christina Vuong RN 04/17/24 18:35: PO Benadryl given, pending effectiveness. Original Note: pt endorsing redness in bilateral cheeks. RENEE Dave made aware. PA suggests to slow down rate by 50%. Pt denies throat itchiness, tightness, no sob observed at this time. VSS. Awaiting Benadryl order. 97.9, 74HR, BP 144/80, 99% on room air.
[2024-04-17] MEDS: diphenhydrAMINE HCL 25 MG CAPSULE PO (18:29)
[2024-04-17 18:36] VITALS: BP 144/80; PULSE 74; RESP 18; TEMP 36.6; O2SAT 99
[2024-04-17 19:14] VITALS: BP 142/89; PULSE 81; RESP 18; TEMP 36.3; O2SAT 98
[2024-04-18 02:59] VITALS: BP 176/87; PULSE 55; RESP 16; TEMP 36.4; O2SAT 100
[2024-04-18] MEDS: Ibuprofen 200 MG TABLET 400 MG PO ×3 (06:40→23:32)
[2024-04-18 07:22] VITALS: BP 147/74; PULSE 59; RESP 16; TEMP 36.3; O2SAT 94
[2024-04-18 07:47] LABS: Vancomycin Random 11.3 mcg/mL (15-20)
[2024-04-18 07:51] LABS: Creatinine Clr Calc Pharmacy 108.9; Estimated Glomerular Filt Rate > 60
[2024-04-18] MEDS: 0.9 % Sodium Chloride Flush 3 ML SYRINGE IVFLUSH ×3 (08:24→19:23)
[2024-04-18] MEDS: diphenhydrAMINE HCL 25 MG CAPSULE PO (09:07)
[2024-04-18] MEDS: vancomycin HCL 1,500 MG in 0.9 % Sodium Chloride 500 ML 333.33 MG IV (09:07)
[2024-04-18] MEDS: Enoxaparin Sodium 40 MG/0.4 ML SYRINGE SUBCUT (09:09)
--- NOTE | 2024-04-18 13:33 | P.PNIM_ITS ---
Subjective Subjective Date of Service: 04/18/24 Interval History: seen and examined this morning follow up for knee right lower extremity cellulitis with abscess No fever, no chills Pain controlled Constitutional Constitutional: Denies chills and Denies fever(s) Cardiovascular Cardiovascular: Denies chest pain, Denies palpitations and Denies dyspnea Respiratory Respiratory: Denies cough and Denies dyspnea Endocrine Endocrine: Denies palpitations Physical Exam 2 Vital Signs: Vital Signs: Last Vital Signs Temp 97.4 F 04/18/24 07:22 Pulse 59 04/18/24 07:22 Resp 16 04/18/24 07:22 BP 147/74 H 04/18/24 07:22 Pulse Ox 94 04/18/24 07:22 O2 Del Method Room Air 04/18/24 07:22 BMI result Body Mass Index 43.5 Const: General: cooperative, comfortable, no acute distress, alert and awake Nutritional Appearance: obese Orientation/consciousness: patient oriented x3 Resp: Effort & Inspection: normal respiratory effort, able to speak in complete sentences, no respiratory distress and no use of accessory muscles A uscultation: clear to auscultation bilaterally Cardio: Rate: regular rate GI: Inspection: No distended Palpation (GI): Soft to palpation and nontender Skin: Other: wound draining; erythema of surrounding area and lower leg improving Neuro: General: patient oriented x3, moves all extremities and CN's II-XI intact bilaterally Objective Data Active Medications Acetaminophen (Acetaminophen 325 Mg Tablet) 975 mg PO Q6H PRN PRN Reason: Pain, Mild (Pain Scale 1-3), fever or headache Atorvastatin Calcium (Atorvastatin Calcium 10 Mg Tablet) 10 mg PO DAILY@1530 [facility] Last Admin: 04/17/24 15:40 Dose: 10 mg Documented By: NIMO Diphenhydramine HCl (Diphenhydramine Hcl 25 Mg Capsule) 25 mg PO Q6H PRN PRN Reason: Itching Last Admin: 04/18/24 09:07 Dose: 25 mg Documented By: ARTURO Enoxaparin Sodium (Enoxaparin Sodium 40 Mg/0.4 Ml Syringe) 40 mg SUBCUT Q24H [facility] Last Admin: 04/18/24 09:09 Dose: 40 mg Documented By: ARTURO Vancomycin HCl 1,500 mg/ (Sodium Chloride) 500 mls @ 333.333 mls/hr IV Q8H [facility] Last Infusion: 04/18/24 10:39 Dose: Infused Documented By: ARTURO Ibuprofen (Ibuprofen 200 Mg Tablet) 400 mg PO Q6H PRN PRN Reason: Pain, Mild (Pain Scale 1-3) Last Admin: 04/18/24 06:40 Dose: 400 mg Documented By: TIMOTHY Lisinopril (Lisinopril 10 Mg Tablet) 10 mg PO DAILY@1530 [facility]; Protocol Last Admin: 04/17/24 15:39 Dose: 10 mg Documented By: NIMO Morphine Sulfate (Morphine Sulfate 2 Mg/Ml Cartridge) 2 mg IVPUSH Q4H PRN; Protocol PRN Reason: Pain, Severe (Pain Scale 7-10) Oxycodone HCl (Oxycodone Hcl Immed Release 5 Mg Tablet) 5 mg PO Q6H PRN PRN Reason: Pain, Moderate(Pain Scale 4-6) Pharmacy Consult (Consult Rx Vancomycin Dosing) 1 each MISCELLANE DAILY PRN PRN Reason: Consult order Sodium Chloride (0.9 % Sodium Chloride Flush 3 Ml Syringe) 3 ml IVFLUSH [facility] Last Admin: 04/18/24 08:24 Dose: 3 ml Documented By: ARTURO Vitamin D (Cholecalciferol (Vitamin D3) 25 Mcg Tablet) 50 mcg PO DAILY@1530 [facility] Last Admin: 04/17/24 15:40 Dose: 50 mcg Documented By: NIMO Labs 04/17/24 05:29 04/18/24 06:19 Labs: Laboratory Results - last 24 hr 04/17/24 04/18/24 15:17 06:19 Hold Purple Top SEE NOTE Estim Creat Clear Calc 108.9 Estimated GFR > 60 Random Vancomycin < 2.0 L 11.3 L Microbiology Microbiology Results: Microbiology 04/16/24 06:50 Gram Stain - Final Knee,Right Routine Culture - Final Staphylococcus aureus 04/16/24 03:56 Gram Stain - Final Knee,Right Routine Culture - Final No growth after 2 days 04/16/24 04:32 Blood Culture - Preliminary Blood - Venous No growth after 48 hours. 04/16/24 03:50 Blood Culture - Preliminary Blood - Venous No growth after 48 hours. Assessment and Plan (1) Cellulitis: Status: Acute Plan This is a 49-year-old female with history of hypertension, hyperlipidemia who presents to the emergency department with redness and swelling of right knee and lower leg found to have abscess drained in the emergency department Right knee abscess associated with right lower extremity cellulitis s/p I&D in the ED with drainage of 120 cc purulent material Initially treated with IV vancomycin and zosyn; zosyn stopped Wound culture growing MSSA will transition to cefazolin Blood cultures negative to date Seen by Orthopedic surgery, no joint involvement, no further need for orthopedic intervention General surgery consult pending Continue local wound care Essential hypertension. Continue lisinopril. Hyperlipidemia. Continue atorvastatin. Obesity class III, BMI 43.5 kg/m2. Weight loss. DVT prophylaxis Lovenox Patient requires ongoing inpatient stay for management of abscess/cellulitis requiring IV antibiotics, wound care to prevent progression of infection Quality Stroke Does the patient have a stroke diagnosis?: No VTE Prior VTE?: No VTE Risk Level:: Medical - moderate - high VTE Device Contraindication: Treatment Not Indicated VTE Drug Contraindication: N/A - Med Ordered
[2024-04-18] MEDS: Morphine Sulfate 2 MG/ML CARTRIDGE IVPUSH (13:35)
--- NOTE | 2024-04-18 14:08 | P.CONGS_ITS ---
History of Present Illness Consult details Consult date: 04/18/24 Narrative: Patient is status post I&D of a deep soft tissue right knee abscess wound. She had this performed in ER. Orthopedic consultation was obtained was demonstrated no intra-articular process to this. Patient has been admitted for local wound care and IV antibiotics and analgesia. Chart was reviewed and patient evaluated PMFSH Past Medical History Medical History Tubular adenoma Family history of colon cancer Morbid obesity with BMI of 45.0-49.9, adult Vitamin D deficiency Anemia Pure hypercholesterolemia Essential hypertension Cellulitis of hand, left Thrush Sore throat Family History Family History Father No problems noted. Mother Colon cancer Endometrial cancer Brother In good health Sister In good health Surgical History Surgical History Hx of colonoscopy (~01/16/24) Hx of colonoscopy History of hysteroscopy History of tonsillectomy Social History Social History Household Members: None Housing: Apartment Do you presently have visiting nurse or other home services: No Patient Tobacco Use Status: Never used Tobacco e-Cigarette/Vaping Use: Never Used Second Hand Smoke Exposure: No service: No Current occupational status: employed Cognitive needs: No Hearing needs: No Vision needs: Yes Meds Allergies Allergy/AdvReac Type Severity Reaction Status Date / Time nut - unspecified [nut] Allergy Severe HIVES Verified 04/16/24 03:31 peanut [PEANUT] Allergy Intermediate HIVES Verified 04/16/24 03:31 prednisolone [From STERANE] Allergy Intermediate VISION Verified 04/16/24 03:31 PROBLEMS sesame oil [SESAME OIL] Allergy Intermediate HIVES Verified 04/16/24 03:31 diaz [DIAZ] Allergy Unknown UNKNOWN Verified 04/16/24 03:31 soy [SOY] Allergy Unknown UNKNOWN Verified 04/16/24 03:31 cat dander Allergy Sneezing Verified 04/16/24 06:11 Active Medications: Current Medications Acetaminophen (Acetaminophen 325 Mg Tablet) 975 mg PO Q6H PRN PRN Reason: Pain, Mild (Pain Scale 1-3), fever or headache Atorvastatin Calcium (Atorvastatin Calcium 10 Mg Tablet) 10 mg PO DAILY@1530 [facility] Last Admin: 04/17/24 15:40 Dose: 10 mg Diphenhydramine HCl (Diphenhydramine Hcl 25 Mg Capsule) 25 mg PO Q6H PRN PRN Reason: Itching Last Admin: 04/18/24 09:07 Dose: 25 mg Enoxaparin Sodium (Enoxaparin Sodium 40 Mg/0.4 Ml Syringe) 40 mg SUBCUT Q24H [facility] Last Admin: 04/18/24 09:09 Dose: 40 mg Cefazolin Sodium 1 gm/ Sodium (Chloride) 50 mls @ 100 mls/hr IV Q8H [facility] Ibuprofen (Ibuprofen 200 Mg Tablet) 400 mg PO Q6H PRN PRN Reason: Pain, Mild (Pain Scale 1-3) Last Admin: 04/18/24 13:44 Dose: 400 mg Lisinopril (Lisinopril 10 Mg Tablet) 10 mg PO DAILY@1530 [facility]; Protocol Last Admin: 04/17/24 15:39 Dose: 10 mg Morphine Sulfate (Morphine Sulfate 2 Mg/Ml Cartridge) 2 mg IVPUSH Q4H PRN; Protocol PRN Reason: Pain, Severe (Pain Scale 7-10) Last Admin: 04/18/24 13:35 Dose: 2 mg Oxycodone HCl (Oxycodone Hcl Immed Release 5 Mg Tablet) 5 mg PO Q6H PRN PRN Reason: Pain, Moderate(Pain Scale 4-6) Sodium Chloride (0.9 % Sodium Chloride Flush 3 Ml Syringe) [facility] Last Admin: 04/18/24 08:24 Dose: 3 ml Vitamin D (Cholecalciferol (Vitamin D3) 25 Mcg Tablet) 50 mcg PO DAILY@1530 [facility] Last Admin: 04/17/24 15:40 Dose: 50 mcg Home Medications ?Medication ?Instructions ?Recorded ?Confirmed ?Last Taken ?Type cholecalciferol (vitamin D3) 50 50 mcg PO DAILY 05/26/21 04/16/24 04/15/24 History mcg (2,000 unit) capsule atorvastatin 10 mg tablet 10 mg PO DAILY@1530 04/16/24 04/16/24 04/13/24 History lisinopril 10 mg tablet 10 mg PO DAILY@1530 04/16/24 04/16/2404/15/24 History Physical Exam 2 Vital Signs: Vital Signs: Last Vital Signs Temp 97.4 F 04/18/24 07:22 Pulse 59 04/18/24 07:22 Resp 16 04/18/24 07:22 BP 147/74 H 04/18/24 07:22 Pulse Ox 94 04/18/24 07:22 O2 Del Method Room Air 04/18/24 07:22 BMI result Body Mass Index 43.5 Extrem: Other: Patient was given preprocedure IV morphine and Over right anterio--lateral aspect of right knee incision and drainage site with packing was evaluated. The packing was removed. Minimal purulence was retrieved. New packing was placed followed by dressing. Well tolerated. Results Labs 04/17/24 05:29 04/18/24 06:19 Labs: Abnormal lab results 04/17/24 04/18/24 Range/Units 15:17 06:19 Random Vancomycin < 2.0 L 11.3 L (15-20) mcg/mL BMP 04/18/24 06:19 Creatinine 0.87 All other labs normal. Assessment and Plan (1) Cellulitis: Status: Acute (2) Abscess of right knee: Status: Acute Plan Current plan is continue local wound care, IV antibiotics, analgesia, elevate extremity. To follow Procedures Date of Service Date of Service: 04/18/24
[2024-04-18 15:10] VITALS: BP 135/81; PULSE 65; RESP 16; TEMP 36.6; O2SAT 97
[2024-04-18] MEDS: Cholecalciferol (Vitamin D3) 25 MCG TABLET 50 MCG PO (15:18)
[2024-04-18] MEDS: Atorvastatin Calcium 10 MG TABLET PO (15:18)
[2024-04-18] MEDS: lisinopriL 10 MG TABLET PO (15:18)
[2024-04-18 19:45] VITALS: BP 122/58; PULSE 65; RESP 18; TEMP 36.4; O2SAT 96
[2024-04-19 03:40] VITALS: BP 131/66; PULSE 65; RESP 20; TEMP 36.2; O2SAT 99
[2024-04-19 06:08] LABS: Estimated Glomerular Filt Rate 56
[2024-04-19 08:06] VITALS: BP 146/82; PULSE 62; RESP 18; TEMP 36.1; O2SAT 98
[2024-04-19] MEDS: Enoxaparin Sodium 40 MG/0.4 ML SYRINGE SUBCUT (08:34)
[2024-04-19] MEDS: 0.9 % Sodium Chloride Flush 3 ML SYRINGE IVFLUSH ×3 (08:34→23:44)
[2024-04-19] MEDS: Ibuprofen 200 MG TABLET 400 MG PO ×2 (08:35→23:50)
[2024-04-19] MEDS: Morphine Sulfate 2 MG/ML CARTRIDGE IVPUSH (10:27)
--- NOTE | 2024-04-19 10:48 | P.PNIM_ITS ---
Subjective Subjective Date of Service: 04/19/24 Interval History: no fever; pain controlled Review of Systems Review of Systems: Yes all other systems are reviewed and are negative Physical Exam 2 Vital Signs: Vital Signs: Last Vital Signs Temp 97 F 04/19/24 08:06 Pulse 62 04/19/24 08:06 Resp 18 04/19/24 08:06 BP 146/82 H 04/19/24 08:06 Pulse Ox 98 04/19/24 08:06 O2 Del Method Room Air 04/19/24 08:06 BMI result Body Mass Index 43.5 Gen: in no acute distress HEENT: sclera anicteric, moist mucus membranes Neck: supple Lungs: clear to auscultation bilaterally Heart: regular rate and rhythm, no murmurs Abd: soft, non-tender, non-distended, obese Ext: R knee with drained superficial abscess cavity with packing strip and surrounding indruation but no residual erythema Skin: warm/well-perfused Neuro: alert and oriented x3, no focal findings Psych: appropriate affect Objective Data Active Medications Acetaminophen (Acetaminophen 325 Mg Tablet) 975 mg PO Q6H PRN PRN Reason: Pain, Mild (Pain Scale 1-3), fever or headache Atorvastatin Calcium (Atorvastatin Calcium 10 Mg Tablet) 10 mg PO DAILY@1530 [facility] Last Admin: 04/18/24 15:18 Dose: 10 mg Documented By: ARTURO Diphenhydramine HCl (Diphenhydramine Hcl 25 Mg Capsule) 25 mg PO Q6H PRN PRN Reason: Itching Last Admin: 04/18/24 09:07 Dose: 25 mg Documented By: ARTURO Enoxaparin Sodium (Enoxaparin Sodium 40 Mg/0.4 Ml Syringe) 40 mg SUBCUT Q24H [facility] Last Admin: 04/19/24 08:34 Dose: 40 mg Documented By: LORIE Cefazolin Sodium 1 gm/ Sodium (Chloride) 50 mls @ 100 mls/hr IV Q8H [facility] Last Infusion: 04/19/24 09:11 Dose: Infused Documented By: LORIE Ibuprofen (Ibuprofen 200 Mg Tablet) 400 mg PO Q6H PRN PRN Reason: Pain, Mild (Pain Scale 1-3) Last Admin: 04/19/24 08:35 Dose: 400 mg Documented By: LORIE Lisinopril (Lisinopril 10 Mg Tablet) 10 mg PO DAILY@1530 [facility]; Protocol Last Admin: 04/18/24 15:18 Dose: 10 mg Documented By: ARTURO Morphine Sulfate (Morphine Sulfate 2 Mg/Ml Cartridge) 2 mg IVPUSH Q4H PRN; Protocol PRN Reason: Pain, Severe (Pain Scale 7-10) Last Admin: 04/19/24 10:27 Dose: 2 mg Documented By: LORIE Oxycodone HCl (Oxycodone Hcl Immed Release 5 Mg Tablet) 5 mg PO Q6H PRN PRN Reason: Pain, Moderate(Pain Scale 4-6) Sodium Chloride (0.9 % Sodium Chloride Flush 3 Ml Syringe) [facility] Last Admin: 04/19/24 08:34 Dose: 3 ml Documented By: LORIE Vitamin D (Cholecalciferol (Vitamin D3) 25 Mcg Tablet) 50 mcg PO DAILY@1530 [facility] Last Admin: 04/18/24 15:18 Dose: 50 mcg Documented By: ARTURO Labs 04/17/24 05:29 04/19/24 05:30 Labs: Laboratory Results - last 24 hr 04/19/24 05:30 Hold Purple Top SEE NOTE Estim Creat Clear Calc 92.0 Estimated GFR 56 Microbiology Microbiology Results: Microbiology 04/16/24 06:50 Gram Stain - Final Knee,Right Routine Culture - Final Staphylococcus aureus 04/16/24 03:56 Gram Stain - Final Knee,Right Routine Culture - Final No growth after 2 days Assessment and Plan (1) Cellulitis: Status: Acute Plan d4 49yo F with HTN, HLD, and obesity presenting with R knee/leg swelling and found to have cellulitis and abscess MSSA cellulitis + abscess - initially treated with vanco + pip-thor 04/16-04/18 then transitioned to cefazolin 03/19-, eventually discharge on cefadroxil PO - per Ortho no joint involvement - Surgery following - daily packing change/wound care HTN - lisinopril HLD - statin morbid obesity - diet/exercise counseling VTE ppx - LMWH dispo - anticipate home with VNA in next 1-2d In my clinical judgment, the patient requires continued inpatient hospitalization for the following reasons: IV ABX, wound care Total time managing care of this patient today: 35 minutes. Quality Stroke Does the patient have a stroke diagnosis?: No VTE Prior VTE?: No VTE Risk Level:: Medical - moderate - high VTE Device Contraindication: Treatment Not Indicated VTE Drug Contraindication: N/A - Med Ordered
[2024-04-19 13:29] VITALS: TEMP 36.8
--- NOTE | 2024-04-19 13:46 | MHC.CM.PN ---
per rounds pt to be dcd tues will need a vna enhabit [facility]
[2024-04-19 15:58] VITALS: BP 134/77; PULSE 55; RESP 18; TEMP 36.7; O2SAT 96
[2024-04-19 16:28] VITALS: BP 134/77
[2024-04-19] MEDS: lisinopriL 10 MG TABLET PO (16:28)
[2024-04-19] MEDS: Atorvastatin Calcium 10 MG TABLET PO (16:28)
[2024-04-19] MEDS: Cholecalciferol (Vitamin D3) 25 MCG TABLET 50 MCG PO (16:28)
[2024-04-19 19:09] VITALS: BP 134/73; PULSE 61; RESP 18; TEMP 36.1; O2SAT 95
[2024-04-20 03:35] VITALS: BP 139/67; PULSE 57; RESP 18; TEMP 36.2; O2SAT 97
[2024-04-20 07:11] VITALS: BP 130/67; PULSE 52; RESP 12; TEMP 35.9; O2SAT 95
--- NOTE | 2024-04-20 08:02 | PM.PNGS ---
Subjective Subjective Date of Service: 04/20/24 Interval history: Patient states right lower extremity wound feeling much better. Physical Exam Vital Signs: Vital Signs: Last Vital Signs Temp 96.6 F L 04/20/24 07:11 Pulse 52 04/20/24 07:11 Resp 12 04/20/24 07:11 BP 130/67 04/20/24 07:11 Pulse Ox 95 04/20/24 07:11 O2 Del Method Room Air 04/20/24 07:11 BMI result Body Mass Index 43.5 Extrem: Other: Cellulitis completely resolved. Wound packing in place. Much less tender on exam. Objective Data Active Medications Acetaminophen (Acetaminophen 325 Mg Tablet) 975 mg PO Q6H PRN PRN Reason: Pain, Mild (Pain Scale 1-3), fever or headache Atorvastatin Calcium (Atorvastatin Calcium 10 Mg Tablet) 10 mg PO DAILY@1530 NORA Last Admin: 04/19/24 16:28 Dose: 10 mg Documented By: LORIE Diphenhydramine HCl (Diphenhydramine Hcl 25 Mg Capsule) 25 mg PO Q6H PRN PRN Reason: Itching Last Admin: 04/18/24 09:07 Dose: 25 mg Documented By: ARTURO Enoxaparin Sodium (Enoxaparin Sodium 40 Mg/0.4 Ml Syringe) 40 mg SUBCUT Q24H [facility] Last Admin: 04/19/24 08:34 Dose: 40 mg Documented By: LORIE Cefazolin Sodium 1 gm/ Sodium (Chloride) 50 mls @ 100 mls/hr IV Q8H [facility] Last Infusion: 04/20/24 00:13 Dose: Infused Documented By: MARIA DEL CARMEN Ibuprofen (Ibuprofen 200 Mg Tablet) 400 mg PO Q6H PRN PRN Reason: Pain, Mild (Pain Scale 1-3) Last Admin: 04/19/24 23:50 Dose: 400 mg Documented By: MARIA DEL CARMEN Lisinopril (Lisinopril 10 Mg Tablet) 10 mg PO DAILY@1530 NORA; Protocol Last Admin: 04/19/24 16:28 Dose: 10 mg Documented By: LORIE Morphine Sulfate (Morphine Sulfate 2 Mg/Ml Cartridge) 2 mg IVPUSH Q4H PRN; Protocol PRN Reason: Pain, Severe (Pain Scale 7-10) Last Admin: 04/19/24 10:27 Dose: 2 mg Documented By: LORIE Oxycodone HCl (Oxycodone Hcl Immed Release 5 Mg Tablet) 5 mg PO Q6H PRN PRN Reason: Pain, Moderate(Pain Scale 4-6) Sodium Chloride (0.9 % Sodium Chloride Flush 3 Ml Syringe) 3 ml IVFLUSH QSHIFT [facility] Last Admin: 04/19/24 23:44 Dose: 3 ml Documented By: MARIA DEL CARMEN Vitamin D (Cholecalciferol (Vitamin D3) 25 Mcg Tablet) 50 mcg PO DAILY@1530 [facility] Last Admin: 04/19/24 16:28 Dose: 50 mcg Documented By: LORIE Labs 04/17/24 05:29 04/19/24 05:30 Procedures Date of Service Date of Service: 04/20/24 Progress Note: A&P Assessment and plan (1) Abscess of right knee: Status: Acute (2) Cellulitis: Status: Acute Plan Continue local wound care, IV antibiotics. We will need VNA services for dressing and packing changes on discharge. We will see patient for follow-up in office after discharge. Time Spent With Patient Time: Total time managing care of this patient today ____ minutes. Quality Stroke Does the patient have a stroke diagnosis?: No VTE Prior VTE?: No VTE Risk Level:: Medical - moderate - high VTE Device Contraindication: Treatment Not Indicated VTE Drug Contraindication: N/A - Med Ordered
[2024-04-20] MEDS: Enoxaparin Sodium 40 MG/0.4 ML SYRINGE SUBCUT (08:25)
[2024-04-20] MEDS: 0.9 % Sodium Chloride Flush 3 ML SYRINGE IVFLUSH (08:25)
[2024-04-20] MEDS: Ibuprofen 200 MG TABLET 400 MG PO (08:26)
[2024-04-20] MEDS: oxyCODONE HCl Immed Release 5 MG TABLET PO (10:24)
--- NOTE | 2024-04-20 12:09 | P.F2F_ITS ---
Service Date Service Date: 04/20/24 Encounter Date of encounter: 04/20/24 Reasons for Services Signs and symptoms assessed: wound care Reason for penitentiary: wound care MD Overseeing Care: Benitez Espino Homebound: Leaving the home is medically contraindicated at this time without the asist of a device and/or another person due th the listed conditions above and below. Reason homebound: immunosuppression / infection risk Certification: Based on the above findings, I certify that this patient is confined to the home and needs intermittent penitentiary care, physical therapy and/or speech therapy, or continues to need occupational therapy. The patient is under my care, and I have initiated the establishment of the plan of care. The patient will be followed by a physician who will periodically review the plan of care. Time Spent With Patient Time: Total time managing care of this patient today ____ minutes.
--- NOTE | 2024-04-20 12:18 | P.DS_ITS ---
DS: Providers Provider Date of Service: 04/20/24 Date of admission: 04/16/24 05:16 Date of discharge: 04/20/24 Primary care physician: Benitez Espino MD Consults: 04/16/24 05:33 Consult to Orthopedics [place]ine [place] [facility] [facility] Reason for consultation: R knee abscess + cellulitis Has provider been notified: No 04/17/24 14:47 Consult to General Surgery Routine Consulting Provider[place] [facility] [place] [facility] Reason for consultation: RLE abscess Has provider been notified: No DS: Diagnosis Discharge Diagnosis (1) Cellulitis: Status: Acute (2) Abscess of leg: Status: Acute (3) Morbid obesity: Status: Acute DS: Summary Hospital Course Hospital Course: From the history and physical by the admitting hospitalist, Jerardo Cruz, 04/16/24: Marissa Roberson is a 49 years old woman with past medical history significant for essential hypertension and hyperlipidemia presents to the emergency department complaining of worsening right knee and leg swelling redness and pain over the last several days. She also reported fever of 101.1. Patient said yair t on April 04 she was camping and had to use her right knee to boost up a cooler while packing up. The same day she noted a lump at the base of her right thumb for which she was seen in the emergency department. She was found to have a broken vessel/contusion to the left thumb (finger x-ray was negative). This has resolved. Couple of days later she noted a bruise around her right knee area that has been getting worse, more red and swollen. Tonight, her right knee and leg became significantly swollen and noted some spontaneous drainage of clear yellowish fluid. Pain increases with ambulation. She has been taking Advil for pain. She denied any headache, dizziness, nausea, vomiting, abdominal pain or diarrhea. She denied tobacco smoking or illicit drug use. She drinks alcohol occasionally. In the ED, she was found to have stable vital signs. Tachycardia of 130 was reported around 03:30. Blood workup showed leukocytosis of 12.3. Hemoglobin and platelets are normal. There are no electrolyte imbalances. Random glucose 149. There is minimal lactic acidosis of 2.5. There are no electrolyte imbalances. LFTs are unremarkable except for very minimal elevation of ALT. Right knee CT scan showed subcutaneous fluid collection in the anterolateral aspect of the knee measuring up to approximately 8.5 x 3.4 x 11.3 cm, which may represent abscess in the appropriate clinical setting. ED tx: NS 1 L bolus, vancomycin 2 g IV 49yo F with HTN, HLD, and obesity presenting with R knee/leg swelling and found to have cellulitis and abscess for which she underwent I+D in the ED and was admitted to the medical-surgical unit. She was initially treated with vancomycin and piperacillin-tazobactam 04/16-04/18 then transitioned to cefazolin 04/18 once wound cultures grew MSSA. Blood cultures negative. Per Orthopedics telesales consultant, there was no joint involvement. Wound was packed daily and cellulitis improved markedly. She was discharged on 5 days of cefadroxil with VNA services for wound care. Time Attestation Discharge Coordination Time (in mins): 35 Quality: Safe Use of Opioids Does Pt have an Active Cancer Diagnosis on the Problem List?: No Quality: Stroke Does the patient have a stroke diagnosis?: No Physical Exam Vital Signs: Vital Signs: Last Vital Signs Temp 96.6 F L 04/20/24 07:11 Pulse 52 04/20/24 07:11 Resp 12 04/20/24 07:11 BP 130/67 04/20/24 07:11 Pulse Ox 95 04/20/24 07:11 O2 Del Method Room Air 04/20/24 07:11 BMI result Body Mass Index 43.5 Gen: in no acute distress HEENT: sclera anicteric, moist mucus membranes Neck: supple Lungs: clear to auscultation bilaterally Heart: regular rate and rhythm, no murmurs Abd: soft, non-tender, non-distended, obese Ext: R knee with drained superficial abscess cavity with packing strip and surrounding indruation but no residual erythema Skin: warm/well-perfused Neuro: alert and oriented x3, no focal findings Psych: appropriate affect DS: Data Data Completed and Pending Completed studies during hospitalization [Text1]: Laboratory Results WBC 9.6 X10*3/uL (4.8-10.8) 04/17/24 05:29 RBC 4.27 X10*6/uL (4.20-5.50) 04/17/24 05:29 Hgb 12.9 g/dl (12.0-16.0) 04/17/24 05:29 Hct 39.0 % (37.0-47.0) 04/17/24 05:29 MCV 91.3 fL (80.0-98.0) 04/17/24 05:29 MCH 30.2 pg (27.0-33.0) 04/17/24 05:29 MCHC 33.1 g/dl (31.0-35.0) 04/17/24 05:29 RDW 12.5 % (11.0-16.0) 04/17/24 05:29 Plt Count 342 X10*3/uL (160-400) 04/17/24 05:29 MPV 9.4 fL (9.4-12.3) 04/17/24 05:29 Immature Gran % (Auto) 0.6 % (0.0-0.4) H 04/17/24 05:29 Neut % (Auto) 55.6 % (45-73) 04/17/24 05:29 Lymph % (Auto) 30.0 % (20-40) 04/17/24 05:29 Geary % (Auto) 9.0 % (2-11) 04/17/24 05:29 Eos % (Auto) 4.2 % (0-4) H 04/17/24 05:29 Baso % (Auto) 0.6 % (0-2) 04/17/24 05:29 Lymph # (Auto) 2.9 X10*3/uL (1.2-4.9) 04/17/24 05:29 Geary # (Auto) 0.9 X10*3/uL (0.1-1.2) 04/17/24 05:29 Eos # (Auto) 0.4 X10*3/uL (0.0-0.4) 04/17/24 05:29 Baso # (Auto) 0.1 X10*3/uL (0.0-0.2) 04/17/24 05:29 Abs Immat Gran (auto) 0.06 X10*3/uL (0.00-0.03) H 04/17/24 05:29 Absolute Neuts (auto) 5.3 x10*3/uL (2.0-8.3) 04/17/24 05:29 Absolute Nucleated RBC 0.000 X10*3/uL (0.0-0.012) 04/17/24 05:29 Nucleated RBC % (auto) 0.0 /100WBC (0.0-0.2) 04/17/24 05:29 Hold Purple Top SEE NOTE 04/19/24 05:30 Sodium 140 mmol/L (135-145) 04/17/24 05:29 Potassium 4.0 mmol/L (3.3-5.1) 04/17/24 05:29 Chloride 107 mmol/L (96-108) 04/17/24 05:29 Carbon Dioxide 24 mmol/L (22-29) 04/17/24 05:29 Anion Gap 13 (12-20) 04/17/24 05:29 BUN 13 mg/dL (9-16) 04/17/24 05:29 Creatinine 1.03 mg/dL (0.5-1.4) 04/19/24 05:30 Estim Creat Clear Calc 92.0 04/19/24 05:30 Estimated GFR 56 04/19/24 05:30 Random Glucose 86 mg/dL (60-115) 04/17/24 05:29 Lactic Acid Cancelled 04/16/24 06:00 Lactic Acid F/U @ 2Hr 0.9 mmol/L (0.5-2.0) 04/16/24 06:00 Calcium 9.1 mg/dL (8.4-10.2) D 04/17/24 05:29 Total Bilirubin 0.5 mg/dL (0.0-1.0) 04/16/24 03:50 AST 17 U/L (5-31) 04/16/24 03:50 ALT 32 U/L (0-31) H 04/16/24 03:50 Alkaline Phosphatase 69 U/L (39-117) 04/16/24 03:50 Total Protein 7.3 g/dL (6.5-8.0) 04/16/24 03:50 Albumin 3.7 g/dL (3.5-5.0) 04/16/24 03:50 Random Vancomycin 11.3 mcg/mL (15-20) L 04/18/24 06:[address] 04/16/24 04:27 IMPRESSION: Subcutaneous fluid collection in the anterolateral aspect of the knee measuring up to approximately 8.5 x 3.4 x 11.3 cm, which may represent abscess in the proper clinical setting. Surrounding subcutaneous edema and skin thickening, and possible tract extending to the anterolateral skin surface. Of note, there are some more hyperdense components within the inferior aspect of the collection which could reflect more complex fluid versus blood products. Microbiology 04/16/24 06:50 Knee,Right Gram Stain - Final 04/16/24 06:50 Knee,Right Routine Culture - Final Staphylococcus aureus 04/16/24 03:56 Knee,Right Gram Stain - Final 04/16/24 03:56 Knee,Right Routine Culture - Final No growth after 2 days 04/16/24 04:32 Blood - Venous Blood Culture - Preliminary No growth after 48 hours. 04/16/24 03:50 Blood - Venous Blood Culture - Preliminary No growth after 48 hours. Discharge Plan Discharge Anticipated Discharge Date/Time: 04/20/24 12:13 Patient Disposition: Home Health Service Discharge Diagnosis: cellulitis and abscess of left leg Referrals: Benitez Espino MD [Primary Care Provider] - 1 Week David Melendez MD [Physician] - 1 Week Discharge Medications: New oxycodone 5 mg Tablet 5 mg PO Q6H PRN (Reason: severe pain (scale score 7-10)) Qty: 12 0RF Rx Instructions: Partial Fill upon patient request. cefadroxil 1 gram tablet 1,000 mg PO BID Qty: 10 0RF Continued atorvastatin 10 mg tablet 10 mg PO DAILY@1530 lisinopril 10 mg tablet 10 mg PO DAILY@1530 cholecalciferol (vitamin D3) 50 mcg (2,000 unit) capsule 50 mcg PO DAILY Discharge Orders: Discharge Order (Routine); Ordered 04/20/24 Ordered By: Carson Richardson Diet: Advance to usual diet Activity on Discharge: As tolerated Stand Alone Forms: Patient Portal Discharge page Print Language: Nepali Care Plan Goals: infection cure Health Concerns: cellulitis and abscess of left leg Plan of Treatment: wound care every 2 days: Replace plain packing strip, then cover wound with ABD pad and gauze wrap cefadroxil 1 gram twice daily for 5 days for mild-moderate pain, take ibuprofen for severe pain, take oxycodone Please follow up with your primary care doctor within 1 week. Return to the hospital if you experience recurrent or worsening symptoms. Assessment: See Discharge Summary. Patient Instructions: Cefadroxil (By mouth)
--- NOTE | 2024-04-20 12:54 | MHC.CM.PN ---
randi pandey home with vanessa coley
== END 2024-04-20 15:01 | disposition home health service (06) | DRG 603 ==
LOC: HO.ED 03:43 → HO.EDOVER 05:25 → HO.IMC 07:41 → HO.S3 15:43
PROVIDERS: Physician Assistant Medical; Admitting Provider Internal Medicine; Emergency Provider Internal Medicine; PCP Internal Medicine; Visit Provider Family Medicine
DX: L02.415 Cutaneous abscess of right lower limb (principal); Z68.41 Body mass index [BMI] 40.0-44.9, adult; L03.115 Cellulitis of right lower limb; B95.61 Methicillin susceptible Staphylococcus aureus infection as the cause of diseases classified elsewhere; E66.01 Morbid (severe) obesity due to excess calories; I10 Essential (primary) hypertension; E78.5 Hyperlipidemia, unspecified; Z79.899 Other long term (current) drug therapy
CPT/HCPCS: 36415; 73700; 80048; 80053; 80202; 82565; 83605; 85025; 87040; 87070; 87077; 87186; 87205; 99285; J0690; J1650; J2270; J2543; J3370; J3371

== ENCOUNTER → 2024-04-16 05:16 | Outpatient (BNV) | payer OTHER, SELFPAY | PROVIDERS: Admitting Provider Internal Medicine; Emergency Provider Internal Medicine; PCP Internal Medicine; Visit Provider Surgery | DX: L02.415 Cutaneous abscess of right lower limb (principal); L03.90 Cellulitis, unspecified | CPT/HCPCS: 99222; 99232 ==

== ENCOUNTER → 2024-04-16 05:16 | Outpatient (BNV) | payer OTHER, SELFPAY | PROVIDERS: Admitting Provider Internal Medicine; Emergency Provider Internal Medicine; PCP Internal Medicine; Visit Provider Physician Assistant | DX: L03.115 Cellulitis of right lower limb (principal); L02.415 Cutaneous abscess of right lower limb | CPT/HCPCS: 99222 ==

== ENCOUNTER → 2024-04-16 05:16 | Outpatient (BNV) | payer OTHER, SELFPAY | PROVIDERS: Admitting Provider Internal Medicine; Emergency Provider Internal Medicine; PCP Internal Medicine; Visit Provider Internal Medicine | DX: L03.90 Cellulitis, unspecified (principal); L02.419 Cutaneous abscess of limb, unspecified; E66.01 Morbid (severe) obesity due to excess calories | CPT/HCPCS: 99223; 99232; 99239; 99499; G0180 ==

== ENCOUNTER 2024-04-27 14:39 | Outpatient (AMB) | payer OTHER, SELFPAY ==
--- NOTE | 2024-04-27 14:44 | A.OFFPC_ITS ---
Vital Signs 04/27/24 14:46 Height 5 ft 8 in Weight 287 lb 0.2 oz BMI 43.6 BP 140/86 H Blood Pressure Location Lt brachial Position Sitting Pulse 100 Pulse Source Pulse Oximeter Pulse Oximetry (%) 99 Oxygen Delivery Method Room Air Intake Visit Reasons[place] [facility] [place] Knee Cellulitis/staff infection Intake Note: Patient is here for hospital discharge follow up. [place] [facility] Advertising Job Titles Required: No Allergies nut - unspecified [nut] Allergy (Severe, Verified 04/27/24 15:37) HIVES peanut [PEANUT] Allergy (Intermediate, Verified 04/27/24 15:37) HIVES prednisolone [From STERANE] Allergy (Intermediate, Verified 04/27/24 15:37) VISION PROBLEMS sesame oil [SESAME OIL] Allergy (Intermediate, Verified 04/27/24 15:37) HIVES galvan [GALVAN] Allergy (Unknown, Verified 04/27/24 15:37) UNKNOWN soy [SOY] Allergy (Unknown, Verified 04/27/24 15:37) UNKNOWN cat dander Allergy (Verified 04/27/24 15:37) Sneezing Medication List - Last Reconciled 04/27/24 by Benitez Espino MD atorvastatin 10 mg PO DAILY@1530 cholecalciferol (vitamin D3) 50 mcg PO DAILY doxycycline hyclate 100 mg PO BID 7 days lisinopril 10 mg PO DAILY@1530 oxycodone 5 mg PO Q6H PRN Tobacco use date assessed: 10/31/23 Dental Screening Dental Screen Date: 03/04/24 HPI [place] [facility] [place] Knee Cellulitis/staff infection HPI Details Patient comes in today for her [facility] follow up visit She went to the ER last week for worsening pain, redness and swelling of her right knee and lower leg that she states has been going on for a few days, as we ll as fever of up to 101.1 degrees at the time She supposedly went camping a couple of weeks prior to her ER visit and thinks that she may have somehow gotten her knee and leg infection although she has not noticed any open wounds or sores on her right lower extremity She was supposedly seen at the ER 2 weeks prior for a lesion on her right thumb and she was advised then that this was just a broken blood vessel and requires no further intervention She recalls noticing a bruise on her right knee a couple of days later and this reportedly gradually got worse to the point wherein her knee and leg were swollen and red She [place] [address] at the ER with minimal lactic acidosis of 2.[address] done showed (+) subcutaneous fluid collection in the anterolateral aspect of the knee, possibly representing an abscess She then underwent I & D of the right knee and was subsequently admitted for further management She was initially started on Vancomycin and Piperacillin-Tazobactam and was eventually transitioned to Cefazolin when her culture grew MSSA Her knee swelling and erythema gradually improved with medical management and she was eventually discharged home on oral Cefadroxil for 5 more days, which she just completed Patient states that she currently still has some redness over her right knee and leg and feels and is concerned that her infection has not yet cleared up completely at this time She denies any fever, headaches or dizziness Denies any chest pains, no SOB No nausea/vomiting, no abdominal pain No change in bowel habits noted PFSH Medical History Hypertension Hyperlipidemia Tubular adenoma Family history of colon cancer Morbid obesity with BMI of 45.0-49.9, adult Vitamin D deficiency Anemia Pure hypercholesterolemia Essential hypertension Cellulitis of hand, left Thrush Sore throat Surgical History Hx of colonoscopy (~01/16/24) Hx of colonoscopy History of hysteroscopy History of tonsillectomy Family History Father No problems noted. Mother Colon cancer Endometrial cancer Brother In good health Sister In good health Social History Household Members: None Housing: Apartment Do you presently have visiting nurse or other home services: No Patient Tobacco Use Status: Never used Tobacco e-Cigarette/Vaping Use: Never Used Second Hand Smoke Exposure: No service: No Current occupational status: employed Cognitive needs: No Hearing needs: No Vision needs: Yes Questionnaire Thrive Questionnaire Date Thrive assessed: 04/16/24 AUDIT C Alcohol Use Questionnaire (AUDIT-C) 1. How often do you have a drink containing alcohol?: Never 3. How often do you have six or more drinks on one occasion?: Never Total Score: 0 Score Reviewed/Action Taken: Yes DONALDO-7 AMB Questionnaire DONALDO-7 Date DONALDO - 7 assessed: 03/04/24 Source: Developed by Drs. Dudley Dos Santos, Farheen Benz, Feliciano Lopez and colleagues, with an educational desmond from [employer]. Review of Systems Const Denies chills, Denies fatigue, Denies fever(s) and Denies headache(s) ENT Denies dysphagia, Denies dizziness, Denies headache(s), Denies neck pain and Denies sore throat Card Denies chest pain, Denies palpitations and Denies dyspnea Resp Denies cough and Denies dyspnea GI Denies abdominal pain, Denies constipation, Denies dysphagia, Denies heartburn, Denies diarrhea, Denies nausea and Denies vomiting Denies difficulty voiding, Denies nocturia, Denies dysuria and Denies urinary urgency Musc Details: still (+) mild erythema of the right knee and leg Denies arthralgias, Denies joint swelling and Denies neck pain Skin/Breast Denies rash Neuro Denies dizziness and Denies headache(s) Endo Denies fatigue and Denies palpitations Physical exam (Primary Care) Vital Signs: Last Vital Signs Pulse 100 04/27/24 14:46 BP 140/86 H 04/27/24 14:46 Pulse Ox 99 04/27/24 14:46 Oxygen Delivery Method Room Air 04/27/24 14:46 BMI result Body Mass Index 43.6 Tobacco/Smoking Status: Tobacco use Status Tobacco use date assessed 10/31/23 04/27/24 14:44 Patient Tobacco Use Status Never used Tobacco 04/27/24 14:44 e-Cigarette/Vaping Use Never Used 04/27/24 14:44 Thrive Assessment: Date of Thrive Assessment Date Thrive assessed 04/16/24 04/27/24 14:44 Const General: no acute distress and alert HENMT Throat: Yes posterior oropharynx normal and Yes tonsils normal (no TP congestion) Neck Neck: Yes no lymphadenopathy and Yes supple Thyroid: Thyroid normal Resp Auscultation: clear to auscultation bilaterally, no rales and no wheezes Cardio Rate: regular rate Rhythm: regular rhythm Heart sounds: no murmurs GI Palpation (GI): Soft to palpation and nontender Auscultation: normal bowel sounds General: Yes no CVA tenderness Back/Spine/Pelvis Back: no CVA tenderness Extrem General: Yes no clubbing, cyanosis or edema Right lower extremity: knee ((+) mild erythema) Details: no tenderness and no swelling and lower leg Details: erythema (mild) Location: of the proximal lower leg; no tenderness and no localized swelling Assessment and Plan Assessment & Plan (1) Cellulitis of right lower extremity: Code(s): L03.115 - Cellulitis of right lower limb Plan: Resolving - s/p oral Cefadroxil but patient remains concerned that her infection has not yet cleared up completely due to some lingering erythema over her right knee and right leg Will go ahead and start her on oral Doxycycline 100 mg BID x 7 days Plan Follow up as scheduled in June 2024 Medications: New doxycycline hyclate 100 mg PO BID 14 caps 0RF 7 days Coding Level of Care Code Est Pt Level 3 (90884) Diagnoses Cellulitis of right lower extremity L03.115
[2024-04-27 14:46] VITALS: BP 140/86; PULSE 100; O2SAT 99; BMI 43.6
== END 2024-04-27 15:41 | disposition home or self-care (01) ==
PROVIDERS: PCP Internal Medicine; Visit Provider Internal Medicine
DX: L03.115 Cellulitis of right lower limb (principal)
CPT/HCPCS: 99213

== ENCOUNTER 2024-04-28 08:35 | Outpatient (AMB) | payer OTHER, SELFPAY ==
--- NOTE | 2024-04-28 08:36 | MHC.OFFVIS ---
Vital Signs 04/28/24 08:46 Height 5 ft 8 in Weight 292 lb BMI 44.4 BP 155/83 H Blood Pressure Location Rt brachial Position Sitting Pulse 86 Intake Visit Reasons: cellulitis and abscess of left leg Intake Note: Patient referred after ER visit on 04-16-24 for abscess on Lt knee. Patient c/o: states there's a hole in the middle of knee. Inflamed, tender to touch. Oozing yellowish discharge. Dr. Espino prescribed doxy yesterday. Loan Adviser Required: No Accompanied by: Self / Same As Patient Allergies nut - unspecified [nut] Allergy (Severe, Verified 04/27/24 15:37) HIVES peanut [PEANUT] Allergy (Intermediate, Verified 04/27/24 15:37) HIVES prednisolone [From STERANE] Allergy (Intermediate, Verified 04/27/24 15:37) VISION PROBLEMS sesame oil [SESAME OIL] Allergy (Intermediate, Verified 04/27/24 15:37) HIVES diaz [DIAZ] Allergy (Unknown, Verified 04/27/24 15:37) UNKNOWN soy [SOY] Allergy (Unknown, Verified 04/27/24 15:37) UNKNOWN cat dander Allergy (Verified 04/27/24 15:37) Sneezing HPI Comments Details: Patient is status post recent hospitalization for I&D very large/complex right knee deep soft tissue abscess. Patient was here for follow-up. She has had marked improvement her symptoms. Her medical doctor added another round of antibiotics. She has had minimal drainage which is serous. No systemic symptoms PFSH Medical History Hypertension Hyperlipidemia Tubular adenoma Family history of colon cancer Morbid obesity with BMI of 45.0-49.9, adult Vitamin D deficiency Anemia Pure hypercholesterolemia Essential hypertension Cellulitis of hand, left Thrush Sore throat Surgical History Hx of colonoscopy (~01/16/24) Hx of colonoscopy History of hysteroscopy History of tonsillectomy Family History Father No problems noted. Mother Colon cancer Endometrial cancer Brother In good health Sister In good health Social History Household Members: None Housing: Apartment Do you presently have visiting nurse or other home services: No Patient Tobacco Use Status: Never used Tobacco e-Cigarette/Vaping Use: Never Used Second Hand Smoke Exposure: No service: No Current occupational status: employed Cognitive needs: No Hearing needs: No Vision needs: Yes Physical Exam Vital Signs: Last Vital Signs Pulse 86 04/28/24 08:46 BP 155/83 H 04/28/24 08:46 BMI result Body Mass Index 44.4 Extrem Other: Markedly improved right knee wound. Cellulitic processes almost completely resolved. Some desquamating superficial skin which is expected. Patient was having VNA service packing changes which I do not think wound and the longer required. Dressing applied. Assessment & Plan Assessment & Plan (1) Abscess of leg: Code(s): L02.419 - Cutaneous abscess of limb, unspecified Category: Surgical Plan Patient has been given local instructions and will otherwise follow-up p.r.n.. All questions answered. Explained it would take 4-6 weeks before the induration and discoloration would resolve. Coding Level of Care Code Est Pt Level 4 (65397) Diagnoses Abscess of leg L02.419
[2024-04-28 08:46] VITALS: BP 155/83; PULSE 86; BMI 44.4
== END 2024-04-28 08:57 | disposition home or self-care (01) ==
PROVIDERS: PCP Internal Medicine; Visit Provider Surgery
DX: L02.419 Cutaneous abscess of limb, unspecified (principal)
CPT/HCPCS: 99213

== ENCOUNTER → 2024-04-28 08:35 | Outpatient (BNVA) | payer OTHER, SELFPAY | PROVIDERS: PCP Internal Medicine; Visit Provider Surgery ==

== ENCOUNTER 2024-07-12 12:45 | Outpatient (AMB) | payer OTHER, SELFPAY ==
[2024-07-12 12:51] VITALS: BP 126/84; PULSE 87; O2SAT 98; BMI 44.2
--- NOTE | 2024-07-12 12:51 | A.OFFPC_ITS ---
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 Accompanied by: Self / Same As Patient Allergies nut - unspecified [nut] Allergy (Severe, Verified 07/12/24 13:22) HIVES peanut [PEANUT] Allergy (Intermediate, Verified 07/12/24 13:22) HIVES prednisolone [From STERANE] Allergy (Intermediate, Verified 07/12/24 13:22) VISION PROBLEMS sesame oil [SESAME OIL] Allergy (Intermediate, Verified 07/12/24 13:22) HIVES galvan [GALVAN] Allergy (Unknown, Verified 07/12/24 13:22) UNKNOWN soy [SOY] Allergy (Unknown, Verified 07/12/24 13:22) UNKNOWN cat dander Allergy (Verified 07/12/24 13:22) Sneezing Medication List - Last Reconciled 07/12/24 by Benitez Espino MD atorvastatin 10 mg PO DAILY@1530 cholecalciferol (vitamin D3) 50 mcg PO DAILY lisinopril 10 mg PO DAILY@1530 Tobacco use date assessed: 07/12/24 Dental Screening Dental Screen Date: 07/12/24 Did you have a dental visit in the last 12 months?: No Did you have a dental problem in the last 6 months where you did not have access to dental care?: No Was dental information given to patient?: No HPI hyperlipidemia, elevated LFTs, HTN HPI Details Patient comes in today for her follow up visit States that she feels okay and that her previous right knee and lower leg infection have all cleared up completely since a couple of months ago and she currently has no other acute issues She denies any headaches or dizziness Denies any chest pains, no SOB No nausea/vomiting, no abdominal pain No change in bowel habits noted She was not able to get her follow up labs done prior to her visit today [facility] Medical History (Updated 07/12/24 @ 13:39 by Benitez Espino MD) Morbid obesity with BMI of 40.0-44.9, adult Hypertension Hyperlipidemia Tubular adenoma Family history of colon cancer Morbid obesity with BMI of 45.0-49.9, adult Vitamin D deficiency Anemia Pure hypercholesterolemia Essential hypertension Cellulitis of hand, left Thrush Sore throat Surgical History Hx of colonoscopy (~01/16/24) Hx of colonoscopy History of hysteroscopy History of tonsillectomy Family History Father No problems noted. Mother Colon cancer Endometrial cancer Brother In good health Sister In good health Social History Household Members: None Housing: Apartment Do you presently have visiting nurse or other home services: No Patient Tobacco Use Status: Never used Tobacco e-Cigarette/Vaping Use: Never Used Second Hand Smoke Exposure: No service: No Current occupational status: employed Cognitive needs: No Hearing needs: No Vision needs: Yes Questionnaire PHQ-9 Over the last 2 weeks, how often have you been bothered by any of the following problems? 1. Little interest or pleasure in doing things: not at all 2. Feeling down, depressed, or hopeless: not at all 3. Trouble falling or staying asleep, or sleeping too much: not at all 4. Feeling tired or having little energy: not at all 5. Poor appetite or overeating: not at all 6. Feeling bad about yourself - or that you are a failure or have let yourself or your family down: not at all 7. Trouble concentrating on things, such as reading the newspaper or watching television: not at all 8. Moving or speaking so slowly that other people could have noticed. Or the opposite - being so fidgety or restless that you have been moving around a lot more than usual: not at all 9. Thoughts that you would be better off or of hurting yourself in some way: not at all Total score: 0 Depression Screening Interpretation: Negative Depression Screening Done: Yes 84265 - PHQ-9 Billing: Yes Source: Developed by Drs. Dudley Dos Santos, Farheen Benz, Feliciano Lopez and colleagues, with an educational desmond from [employer]. Thrive Questionnaire Date Thrive assessed: 07/12/24 I am a: Patient What is your living situation today?: I have a steady place to live Within the past 12 months, did the food you bought not last and you didn't have the money to get more?: Never true Within the past 12 months, did you worry whether your food would run out before you got money to buy more?: Never true Do you have trouble paying for medicines?: No Do you have trouble getting transportation to medical appointments?: No Do you have trouble paying your heating and electricity bill?: No Do you have trouble taking care of your child, family member or friend?: No Do you have trouble with day-to-day activities such as bathing, preparing meals, shopping, managing finances, etc.?: No Are you currently unemployed and looking for a job?: No Are you interested in more education?: No Please select the resources that you would like help with: None Currently or been in a relationship where the following occur: No concerns reported THRIVE Score: 0 AUDIT C Alcohol Use Questionnaire (AUDIT-C) 1. How often do you have a drink containing alcohol?: Never 3. How often do you have six or more drinks on one occasion?: Never Total Score: 0 Score Reviewed/Action Taken: Yes DONALDO-7 AMB Questionnaire DONALDO-7 Date DONALDO - 7 assessed: 07/12/24 Feeling nervous, anxious, or on edge: 0 = Not at all Not being able to stop or control worryin = Not at all Worrying too much about different things: 0 = Not at all Trouble relaxin = Not at all Being so restless that it is hard to sit still: 0 = Not at all Becoming easily annoyed or irritable: 0 = Not at all Feeling afraid as if something awful might happen: 0 = Not at all Total DONALDO-7 score (0-4 normal; 5-9 mild; 10-14 moderate; 15-21 severe): 0 Source: Developed by Drs. Dudley Dos Santos, Farheen Benz, Feliciano Lopez and colleagues, with an educational desmond from [employer]. Review of Systems Const Denies chills, Denies fatigue, Denies fever(s) and Denies headache(s) ENT Denies dysphagia, Denies dizziness, Denies otalgia, Denies headache(s), Denies neck pain, Denies odynophagia and Denies sore throat Card Denies chest pain, Denies palpitations and Denies dyspnea Resp Denies chest congestion, Denies cough and Denies dyspnea GI Denies abdominal pain, Denies constipation, Denies dysphagia, Denies heartburn, Denies diarrhea, Denies nausea, Denies odynophagia and Denies vomiting Denies difficulty voiding, Denies nocturia, Denies dysuria and Denies urinary urgency Musc Denies back pain, Denies arthralgias, Denies joint swelling and Denies neck pain Skin/Breast Denies rash Neuro Denies dizziness and Denies headache(s) Endo Denies fatigue and Denies palpitations Physical exam (Primary Care) Vital Signs: Last Vital Signs Pulse 87 07/12/24 12:51 BP 126/84 07/12/24 12:51 Pulse Ox 98 07/12/24 12:51 Oxygen Delivery Method Room Air 07/12/24 12:51 BMI result Body Mass Index 44.2 Tobacco/Smoking Status: Tobacco use Status Tobacco use date assessed 07/12/24 07/12/24 12:53 Patient Tobacco Use Status Never used Tobacco 07/12/24 12:53 e-Cigarette/Vaping Use Never Used 07/12/24 12:53 PHQ-9: PHQ-9 Score PHQ-9: Total score 0 07/12/24 13:01 Depression Screening Interpretation: Negative Thrive Assessment: Date of Thrive Assessment Date Thrive assessed 07/12/24 07/12/24 12:53 Currently or been in a relationship where the following occur: No concerns reported Const General: no acute distress and alert HENMT Ears: TM's normal bilaterally and EAC's normal Throat: Yes posterior oropharynx normal and Yes tonsils normal (no TP congestion) Neck Neck: Yes no lymphadenopathy and Yes supple Thyroid: Thyroid normal Resp Auscultation: clear to auscultation bilaterally, no rales and no wheezes Cardio Rate: regular rate Rhythm: regular rhythm Heart sounds: no murmurs GI Palpation (GI): Soft to palpation and nontender Auscultation: normal bowel sounds General: Yes no CVA tenderness Back/Spine/Pelvis Back: no CVA tenderness Thoracic/Lumbar Spine: No lumbar spinal tenderness Skin Rashes: no rashes Extrem General: Yes no clubbing, cyanosis or edema Office Procedures Flu Questionnaire Does the patient have a severe egg allergy?: No Immunizations Fluarix Triv [id number] (PF) 45 mcg (15 mcg x 3)/0.5 mL IM syringe Performing Provider: Benitez Espino MD Performing Location: [facility] Documented (not given) by: BURAK Chandler on 07/12/24 13:09 Reason Not Given: Received Previously Coding Level of Care Code Est Pt Level 4 (32233) Diagnoses Essential hypertension I10 Pure hypercholesterolemia E78.00 Elevated LFTs R79.89 Vitamin D deficiency E55.9 Morbid obesity with BMI of 40.0-44.9, adult E66.01; Z68.41 Assessment & Plan Assessment & Plan (1) Essential hypertension: Code(s): I10 - Essential (primary) hypertension Category: Medical Plan: Reinforced low sodium diet - goal is systolic BP of 120 mm or less Continue Lisinopril 10 mg QD Patient is reminded to continue monitoring her blood pressure regularly (2) Pure hypercholesterolemia: Code(s): E78.00 - Pure hypercholesterolemia, unspecified Category: Medical Plan: Patient was not able to get her follow up labs done prior to her visit today Reinforced low cholesterol diet Continue Atorvastatin 10 mg QD Will recheck her labs and fasting lipids in 4 months for follow up - previous orders are updated and will just have patient use these for her next lab draw (3) Elevated LFTs: Code(s): R79.89 - Other specified abnormal findings of blood chemistry Category: Medical Plan: Her serum ALT level was still slightly elevated when last checked in March 2024; AST was normal Discussed that this is likely related to her weight and should improve with weight loss Will continue to monitor her LFTs regularly (4) Vitamin D deficiency: Code(s): E55.9 - Vitamin D deficiency, unspecified Category: Medical Plan: Continue Vitamin D3 2000 units QD (5) Morbid obesity with BMI of 40.0-44.9, adult: Code(s): E66.01 - Morbid (severe) obesity due to excess calories; Z68.41 - Body mass index [BMI] 40.0-44.9, adult Category: Medical Plan: Reinforced diet/exercise as tolerated/lose weight Plan Follow up in 4 months Orders: Orders Influenza [id number] Immunization Today Z23 - Encounter for immunization
== END 2024-07-12 13:29 | disposition home or self-care (01) ==
PROVIDERS: PCP Internal Medicine; Visit Provider Internal Medicine
DX: I10 Essential (primary) hypertension (principal); E78.00 Pure hypercholesterolemia, unspecified; E66.813 Obesity, class 3; Z68.41 Body mass index [BMI] 40.0-44.9, adult; E55.9 Vitamin D deficiency, unspecified

== ENCOUNTER → 2024-07-12 12:45 | Outpatient (BNVA) | payer OTHER, SELFPAY | PROVIDERS: PCP Internal Medicine; Visit Provider Internal Medicine | DX: I10 Essential (primary) hypertension (principal); E78.00 Pure hypercholesterolemia, unspecified; R79.89 Other specified abnormal findings of blood chemistry; E55.9 Vitamin D deficiency, unspecified; E66.01 Morbid (severe) obesity due to excess calories; Z68.41 Body mass index [BMI] 40.0-44.9, adult; Z79.899 Other long term (current) drug therapy | CPT/HCPCS: 90471; 96127 ==

== ENCOUNTER 2024-11-11 13:45 | Outpatient (REF) | payer OTHER, SELFPAY ==
[2024-11-11 14:12] LABS: MANUAL DIFF FLAG NO
[2024-11-11 14:22] LABS: Basophils Percent Auto 0.6 % (0-2); Eosinophils Absolute Auto 0.3 X10*3/uL (0.0-0.4); Eosinophils Percent Auto 4.1 % (0-4); Hematocrit 43.8 % (37.0-47.0); Hemoglobin 14.9 g/dl (12.0-16.0); Imm Gran Abs Auto 0.01 X10*3/uL (0.00-0.03); Imm Gran Pct Auto 0.2 % (0.0-0.4); Lymphocytes Absolute Auto 2.2 X10*3/uL (1.2-4.9); Lymphocytes Percent Auto 33.1 % (20-40); Mean Corpuscular Hemoglobin 30.5 pg (27.0-33.0); Mean Corpuscular Volume 89.8 fL (80.0-98.0); Mean Platelet Volume 10.4 fL (9.4-12.3); Monocytes Absolute Auto 0.7 X10*3/uL (0.1-1.2); Monocytes Percent Auto 10.6 % (2-11); Neutrophils Absolute Auto 3.4 x10*3/uL (2.0-8.3); Neutrophils Percent Auto 51.4 % (45-73); Platelet Count 214 X10*3/uL (160-400); Red Blood Count 4.88 X10*6/uL (4.20-5.50); Red Cell Distribution Width 12.2 % (11.0-16.0); White Blood Count 6.5 X10*3/uL (4.8-10.8)
[2024-11-11 14:53] LABS: Alanine Aminotransferase 70 U/L (0-31); Alkaline Phosphatase 56 U/L (39-117); Anion Gap 12 (12-20); Aspartate Amino Transferase 38 U/L (5-31); Bilirubin Total 1.2 mg/dL (0.0-1.0); Blood Urea Nitrogen 25 mg/dL (9-16); Calcium 9.1 mg/dL (8.4-10.2); Carbon Dioxide 25 mmol/L (22-29); Chloride 105 mmol/L (96-108); Cholesterol 164 mg/dL (<200); Estimated Glomerular Filt Rate > 60; Glucose Fasting 97 mg/dL (60-99); HDL Cholesterol 35 mg/dL (>40); LDL Cholesterol Calculated 104 mg/dL (<100); Potassium 4.1 mmol/L (3.3-5.1); Sodium 138 mmol/L (135-145); Total Protein 7.4 g/dL (6.5-8.0); Triglycerides 126 mg/dL (<150)
[2024-11-11 15:09] LABS: TSH reflex Free T4 2.77 uIU/mL (0.32-4.0); Vitamin D 25-OH Total 60.1 ng/mL (>30)
[2024-11-11 15:40] LABS: Appearance Urine Clear; Color Urine Yellow; Glucose Urine UA Negative (Negative); Leukocyte Esterase Urine Trace (Negative); Nitrite Urine Negative (Negative); PH 5.5 (5.0-9.0); Specific Gravity - Urine 1.015 (1.005-1.025); UMIC TRIGGER UACC YES; Urine Blood Negative (Negative); Urine Ketones Negative (Negative); Urine Protein Negative (Neg-Trace)
[2024-11-11 15:46] LABS: Bacteria Urine None Seen (None Seen); Hyaline Casts Urine 0-2 /LPF (0-2); RBC Urine 0-2 /HPF (0-2); WBC Urine 0-5 /HPF (0-5)
== END 2024-11-11 13:46 | disposition home or self-care (01) ==
LOC: HO.LAB 13:45
PROVIDERS: PCP Internal Medicine; Visit Provider Internal Medicine
DX: E78.00 Pure hypercholesterolemia, unspecified (principal); E55.9 Vitamin D deficiency, unspecified; D64.9 Anemia, unspecified
CPT/HCPCS: 36415; 80053; 80061; 81001; 82306; 84443; 85025

== ENCOUNTER 2024-11-12 12:28 | Outpatient (AMB) | payer OTHER, SELFPAY ==
[2024-11-12 12:33] VITALS: BP 136/82; PULSE 78; O2SAT 97; BMI 43.0
--- NOTE | 2024-11-12 12:33 | MHC.PC.OV ---
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 Accompanied by: Self / Same As Patient Allergies nut - unspecified [nut] Allergy (Severe, Verified 11/12/24 12:37) HIVES peanut [PEANUT] Allergy (Intermediate, Verified 11/12/24 12:37) HIVES prednisolone [From STERANE] Allergy (Intermediate, Verified 11/12/24 12:37) VISION PROBLEMS sesame oil [SESAME OIL] Allergy (Intermediate, Verified 11/12/24 12:37) HIVES galvan [GALVAN] Allergy (Unknown, Verified 11/12/24 12:37) UNKNOWN soy [SOY] Allergy (Unknown, Verified 11/12/24 12:37) UNKNOWN cat dander Allergy (Verified 11/12/24 12:37) Sneezing Medication List - Last Reconciled 11/12/24 by Benitez Espino MD atorvastatin 10 mg PO DAILY@1530 cholecalciferol (vitamin D3) 50 mcg PO DAILY lisinopril 10 mg PO DAILY@1530 Tobacco use date assessed: 07/12/24 Dental Screening Dental Screen Date: 11/12/24 Did you have a dental visit in the last 12 months?: No Did you have a dental problem in the last 6 months where you did not have access to dental care?: No Was dental information given to patient?: No HPI HTN, hyperlipidemia HPI Details Patient comes in today for her follow up visit States that she feels okay She denies any headaches or dizziness Denies any chest pains, no SOB No nausea/vomiting, no abdominal pain No change in bowel habits noted Needs a couple of her Rx refilled She had her follow-up labs done yesterday - to discuss her results [facility] Medical History Morbid obesity with BMI of 40.0-44.9, adult Hypertension Hyperlipidemia Tubular adenoma Family history of colon cancer Morbid obesity with BMI of 45.0-49.9, adult Vitamin D deficiency Anemia Pure hypercholesterolemia Essential hypertension Cellulitis of hand, left Thrush Sore throat Surgical History Hx of colonoscopy (~01/16/24) Hx of colonoscopy History of hysteroscopy History of tonsillectomy Family History Father No problems noted. Mother Colon cancer Endometrial cancer Brother In good health Sister In good health Social History Household Members: None Housing: Apartment Do you presently have visiting nurse or other home services: No Patient Tobacco Use Status: Never used Tobacco e-Cigarette/Vaping Use: Never Used Second Hand Smoke Exposure: No service: No Current occupational status: employed Cognitive needs: No Hearing needs: No Vision needs: Yes Questionnaire PHQ-9 Over the last 2 weeks, how often have you been bothered by any of the following problems? 1. Little interest or pleasure in doing things: not at all 2. Feeling down, depressed, or hopeless: not at all 3. Trouble falling or staying asleep, or sleeping too much: not at all 4. Feeling tired or having little energy: not at all 5. Poor appetite or overeating: not at all 6. Feeling bad about yourself - or that you are a failure or have let yourself or your family down: not at all 7. Trouble concentrating on things, such as reading the newspaper or watching television: not at all 8. Moving or speaking so slowly that other people could have noticed. Or the opposite - being so fidgety or restless that you have been moving around a lot more than usual: not at all 9. Thoughts that you would be better off or of hurting yourself in some way: not at all Total score: 0 Depression Screening Interpretation: Negative Depression Screening Done: Yes 50253 - PHQ-9 Billing: Yes Source: Developed by Drs. Dudley Dos Santos, Farheen Benz, Feliciano Lopez and colleagues, with an educational desmond from [employer]. Thrive Questionnaire Date Thrive assessed: 11/12/24 I am a: Patient What is your living situation today?: I have a steady place to live Within the past 12 months, did the food you bought not last and you didn't have the money to get more?: Never true Within the past 12 months, did you worry whether your food would run out before you got money to buy more?: Never true Do you have trouble paying for medicines?: No Do you have trouble getting transportation to medical appointments?: No Do you have trouble paying your heating and electricity bill?: No Do you have trouble taking care of your child, family member or friend?: No Do you have trouble with day-to-day activities such as bathing, preparing meals, shopping, managing finances, etc.?: No Are you currently unemployed and looking for a job?: No Are you interested in more education?: No Please select the resources that you would like help with: None Currently or been in a relationship where the following occur: No concerns reported THRIVE Score: 0 AUDIT C Alcohol Use Questionnaire (AUDIT-C) 1. How often do you have a drink containing alcohol?: Never 3. How often do you have six or more drinks on one occasion?: Never Total Score: 0 Score Reviewed/Action Taken: Yes DONALDO-7 AMB Questionnaire DONALDO-7 Date DONALDO - 7 assessed: 11/12/24 Feeling nervous, anxious, or on edge: 0 = Not at all Not being able to stop or control worryin = Not at all Worrying too much about different things: 0 = Not at all Trouble relaxin = Not at all Being so restless that it is hard to sit still: 0 = Not at all Becoming easily annoyed or irritable: 0 = Not at all Feeling afraid as if something awful might happen: 0 = Not at all Total DONALDO-7 score (0-4 normal; 5-9 mild; 10-14 moderate; 15-21 severe): 0 Source: Developed by Drs. Dudley Dos Santos, Farheen Benz, Feliciano Lopez and colleagues, with an educational desmond from [employer]. Review of Systems Const Denies chills, Denies fatigue, Denies fever(s) and Denies headache(s) ENT Denies dysphagia, Denies dizziness, Denies otalgia, Denies headache(s), Denies neck pain, Denies odynophagia and Denies sore throat Card Denies chest pain, Denies palpitations and Denies dyspnea Resp Denies chest congestion, Denies cough and Denies dyspnea GI Denies abdominal pain, Denies constipation, Denies dysphagia, Denies heartburn, Denies diarrhea, Denies nausea, Denies odynophagia and Denies vomiting Denies difficulty voiding, Denies nocturia, Denies dysuria and Denies urinary urgency Musc Denies back pain, Denies arthralgias and Denies neck pain Skin/Breast Denies rash Neuro Denies dizziness and Denies headache(s) Endo Denies fatigue and Denies palpitations Physical exam (Primary Care) Vital Signs: Last Vital Signs Pulse 78 11/12/24 12:33 BP 136/82 11/12/24 12:33 Pulse Ox 97 11/12/24 12:33 Oxygen Delivery Method Room Air 11/12/24 12:33 BMI result Body Mass Index 43.0 Tobacco/Smoking Status: Tobacco use Status Tobacco use date assessed 07/12/24 11/12/24 12:37 Patient Tobacco Use Status Never used Tobacco 11/12/24 12:37 e-Cigarette/Vaping Use Never Used 11/12/24 12:37 PHQ-9: PHQ-9 Score PHQ-9: Total score 0 11/12/24 12:59 Depression Screening Interpretation: Negative Thrive Assessment: Date of Thrive Assessment Date Thrive assessed 11/12/24 11/12/24 12:37 Currently or been in a relationship where the following occur: No concerns reported Const General: no acute distress and alert HENMT Ears: TM's normal bilaterally and EAC's normal Throat: Yes posterior oropharynx normal and Yes tonsils normal (no TP congestion) Neck Neck: Yes supple and No lymphadenopathy Thyroid: Thyroid normal Resp Auscultation: clear to auscultation bilaterally, no rales and no wheezes Cardio Rate: regular rate Rhythm: regular rhythm Heart sounds: no murmurs GI Palpation (GI): Soft to palpation and nontender Auscultation: normal bowel sounds General: Yes no CVA tenderness Back/Spine/Pelvis Back: no CVA tenderness Thoracic/Lumbar Spine: No lumbar spinal tenderness Skin Rashes: no rashes Extrem General: Yes no clubbing, cyanosis or edema Results Reviewed Results Reviewed: Laboratory Tests 11/11/24 11/11/24 14:02 14:10 WBC 6.5 Hgb 14.9 Hct 43.8 Plt Count 214 D Sodium 138 Potassium 4.1 Creatinine 0.77 Estimated GFR > 60 Fasting Glucose 97 Calcium 9.1 AST 38 H ALT 70 H Triglycerides 126 Cholesterol 164 LDL Cholesterol, Calc 104 H HDL Cholesterol 35 L 25-OH Vitamin D Total 60.1 TSH 2.77 Ur Specific [place] 1.015 Urine Protein Negative Urine Glucose (UA) Negative Urine Blood Negative Urine Nitrite Negative Ur Leukocyte Esterase Trace H 0-km Coding Level of Care Code Est Pt Level 4 (07535) Diagnoses Essential hypertension I10 Pure hypercholesterolemia E78.00 Elevated LFTs R79.89 Vitamin D deficiency E55.9 Morbid obesity with BMI of 40.0-44.9, adult E66.01; Z68.41 Additional Codes PHQ-9 - 03010 - PHQ-9 Billing: Yes ([id number]) Assessment & Plan Assessment & Plan (1) Essential hypertension: Code(s): I10 - Essential (primary) hypertension Category: Medical Plan: Reinforced low sodium diet - goal is systolic BP of 120 mm or less Continue Lisinopril 10 mg QD Patient is reminded to continue monitoring her blood pressure regularly (2) Pure hypercholesterolemia: Code(s): E78.00 - Pure hypercholesterolemia, unspecified Category: Medical Plan: Results of her labs done yesterday reviewed and discussed with patient - her cholesterol levels have all improved slightly from previous Reinforced low cholesterol diet Continue Atorvastatin 10 mg QD Will recheck her labs and fasting lipids in 4 months for follow up (3) Elevated LFTs: Code(s): R79.89 - Other specified abnormal findings of blood chemistry Category: Medical Plan: Patient is advised that her LFTs have both increased from previous on her recent lab Advised her this is likely related to her weight but will still send her for abdominal ultrasound for further evaluation Will continue to monitor her LFTs regularly (4) Vitamin D deficiency: Code(s): E55.9 - Vitamin D deficiency, unspecified Category: Medical Plan: Continue Vitamin D3 2000 units QD (5) Morbid obesity with BMI of 40.0-44.9, adult: Code(s): E66.01 - Morbid (severe) obesity due to excess calories; Z68.41 - Body mass index [BMI] 40.0-44.9, adult Category: Medical Plan: Reinforced diet/exercise as tolerated/lose weight Plan Follow up in 4 months Orders: Orders US abdomen complete 11/12/24 R79.89 - Other specified abnormal findings of blood chemistry Complete Blood Count Auto Diff 4 Months D64.9 - Anemia, unspecified Comprehensive [place]. Panel Fast 4 Months E78.00 - Pure hypercholesterolemia, unspecified Lipid Panel 4 Months E78.00 - Pure hypercholesterolemia, unspecified Medications: Changed From lisinopril 10 mg PO DAILY@1530 90 tabs 1RF To lisinopril 10 mg PO DAILY@1530 90 days 90 tabs 1RF From atorvastatin 10 mg PO DAILY@1530 90 tabs 1RF To atorvastatin 10 mg PO DAILY@1530 90 days 90 tabs 1RF Refilled atorvastatin 10 mg PO DAILY@1530 90 tabs 1RF lisinopril 10 mg PO DAILY@1530 90 tabs 1RF
== END 2024-11-12 13:04 | disposition home or self-care (01) ==
PROVIDERS: PCP Internal Medicine; Visit Provider Internal Medicine
DX: I10 Essential (primary) hypertension (principal); E78.00 Pure hypercholesterolemia, unspecified; R79.89 Other specified abnormal findings of blood chemistry; E55.9 Vitamin D deficiency, unspecified; E66.01 Morbid (severe) obesity due to excess calories; Z68.41 Body mass index [BMI] 40.0-44.9, adult

== ENCOUNTER → 2024-11-12 12:28 | Outpatient (BNVA) | payer OTHER, SELFPAY | PROVIDERS: PCP Internal Medicine; Visit Provider Internal Medicine | DX: I10 Essential (primary) hypertension (principal); E78.00 Pure hypercholesterolemia, unspecified; R79.89 Other specified abnormal findings of blood chemistry; E55.9 Vitamin D deficiency, unspecified; E66.01 Morbid (severe) obesity due to excess calories; Z68.41 Body mass index [BMI] 40.0-44.9, adult; Z79.899 Other long term (current) drug therapy | CPT/HCPCS: 96127 ==

== ENCOUNTER 2024-12-27 11:25 | Outpatient (REF) | payer OTHER, SELFPAY ==
--- NOTE | ~2024-12-27 | US_ITS ---
CLINICAL HISTORY: R79.89 - Other specified abnormal findings of blood chemistry US abdomen complete with duplex and color Doppler Comparison: None Findings: The visualized pancreas, aorta, and inferior vena cava are unremarkable. Liver normal size and diffusely echogenic. Right lobe 14.5 cm length. No focal hepatic masses. Common duct 3.2 mm diameter. Physiologic distention of the gallbladder. No gallstones or sludge. No gallbladder wall thickening. No pericholecystic fluid. No sonographic Ibrahim sign. Main portal vein antegrade. Right kidney normal size, 10.2 cm in length. Normal cortical width and echotexture. Equivocal echogenic lesion possible angiomyolipoma midpole measuring 4 x 4 x 3 mm. No nephrolithiasis or hydronephrosis. Left kidney normal, 11.3 cm in length. Normal cortical width and echotexture. No solid or cystic renal masses. No nephrolithiasis or hydronephrosis Spleen measures 11.3 cm. No splenic masses. No ascites. No lymphadenopathy. Impression: 1. Normal-sized liver diffusely echogenic reflecting hepatic steatosis or diffuse hepatocellular disease. No focal hepatic lesions 2. 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 This document has been electronically signed by: Vladislav Schwartz MD on 12/28/2024 11:01:51
== END 2024-12-27 11:26 | disposition home or self-care (01) ==
LOC: HO.US 11:25
PROVIDERS: PCP Internal Medicine; Visit Provider Internal Medicine
DX: R79.89 Other specified abnormal findings of blood chemistry (principal)
CPT/HCPCS: 76700

== ENCOUNTER → 2024-12-27 11:26 | Outpatient (BNV) | payer OTHER, SELFPAY | PROVIDERS: PCP Internal Medicine; Visit Provider Radiology Diagnostic Radiology | DX: R79.89 Other specified abnormal findings of blood chemistry (principal) | CPT/HCPCS: 76700; 93975 ==

== ENCOUNTER 2025-03-23 11:12 | Outpatient (REF) | payer OTHER, SELFPAY ==
[2025-03-23 11:37] LABS: MANUAL DIFF FLAG NO
[2025-03-23 12:13] LABS: Hematocrit 44.0 % (37.0-47.0); Hemoglobin 14.7 g/dl (12.0-16.0); Imm Gran Abs Auto 0.04 X10*3/uL (0.00-0.03); Imm Gran Pct Auto 0.4 % (0.0-0.4); Lymphocytes Absolute Auto 2.6 X10*3/uL (1.2-4.9); Mean Corpuscular HGB Conc 33.4 g/dl (31.0-35.0); Mean Corpuscular Hemoglobin 30.1 pg (27.0-33.0); Mean Corpuscular Volume 90.2 fL (80.0-98.0); NRBC Abs Auto 0.000 X10*3/uL (0.0-0.012); NRBC Pct Auto 0.0 /100WBC (0.0-0.2); Platelet Count 220 X10*3/uL (160-400); Red Blood Count 4.88 X10*6/uL (4.20-5.50); White Blood Count 9.4 X10*3/uL (4.8-10.8)
[2025-03-23 12:23] LABS: Appearance Urine Clear; Glucose Urine UA Negative (Negative); PH 5.5 (5.0-9.0); Specific Gravity - Urine <= 1.005 (1.005-1.025)
[2025-03-23 12:44] LABS: Alanine Aminotransferase 82 U/L (0-31); Albumin Level 4.1 g/dL (3.5-5.0); Alkaline Phosphatase 58 U/L (39-117); Anion Gap 10 (12-20); Aspartate Amino Transferase 39 U/L (5-31); Blood Urea Nitrogen 14 mg/dL (9-16); Calcium 8.8 mg/dL (8.4-10.2); Carbon Dioxide 25 mmol/L (22-29); Chloride 106 mmol/L (96-108); Cholesterol 174 mg/dL (<200); Estimated Glomerular Filt Rate > 60; HDL Cholesterol 36 mg/dL (>40); Potassium 4.2 mmol/L (3.3-5.1); Sodium 137 mmol/L (135-145); Total Protein 6.8 g/dL (6.5-8.0); Triglycerides 116 mg/dL (<150)
== END 2025-03-23 11:13 | disposition home or self-care (01) ==
LOC: HO.LAB 11:12
PROVIDERS: PCP Internal Medicine; Visit Provider Internal Medicine
DX: R30.0 Dysuria (principal); E78.00 Pure hypercholesterolemia, unspecified; D64.9 Anemia, unspecified
CPT/HCPCS: 36415; 80053; 80061; 81003; 85025

== ENCOUNTER 2025-03-24 10:54 | Outpatient (AMB) | payer OTHER, SELFPAY ==
[2025-03-24 11:04] VITALS: BP 138/86; PULSE 78; O2SAT 96; BMI 43.8
--- NOTE | 2025-03-24 11:04 | A.OFFPC_ITS ---
Vital Signs 03/24/25 11:04 Height 5 ft 8 in Weight 288 lb 6 oz BMI 43.8 BP 138/86 Blood Pressure Location Lt brachial Position Sitting Pulse 78 Pulse Source Pulse Oximeter Pulse Oximetry (%) 96 Oxygen Delivery Method Room Air Intake Visit Reasons: HTN, hyperlipidemia, elevated LFTs Insurance Verify Rep Required: No Accompanied by: Self / Same As Patient Allergies nut - unspecified (nut) Allergy (Severe, Verified 03/24/25 11:42) HIVES peanut (PEANUT) Allergy (Intermediate, Verified 03/24/25 11:42) HIVES prednisolone (From STERANE) Allergy (Intermediate, Verified 03/24/25 11:42) VISION PROBLEMS sesame oil (SESAME OIL) Allergy (Intermediate, Verified 03/24/25 11:42) HIVES galvan (GALVAN) Allergy (Unknown, Verified 03/24/25 11:42) UNKNOWN soy (SOY) Allergy (Unknown, Verified 03/24/25 11:42) UNKNOWN cat dander Allergy (Verified 03/24/25 11:42) Sneezing Medication List - Last Reconciled 03/24/25 by Benitez Espino MD atorvastatin 10 mg PO DAILY@1530 90 days cholecalciferol (vitamin D3) 50 mcg PO DAILY lisinopril 10 mg PO DAILY@1530 90 days Tobacco use date assessed: 03/24/25 Dental Screening Dental Screen Date: 03/24/25 Did you have a dental visit in the last 12 months?: No Did you have a dental problem in the last 6 months where you did not have access to dental care?: No Was dental information given to patient?: No HPI HTN, hyperlipidemia, elevated LFTs HPI Details Patient comes in today for her follow up visit States that she feels okay She denies any headaches or dizziness Denies any chest pains, no increased SOB No nausea/vomiting, no abdominal pain No change in bowel habits noted Needs a couple of her Rx refilled again She had her follow-up labs done yesterday - to discuss her results [facility] Medical History Morbid obesity with BMI of 40.0-44.9, adult Hypertension Hyperlipidemia Tubular adenoma Family history of colon cancer Morbid obesity with BMI of 45.0-49.9, adult Vitamin D deficiency Anemia Pure hypercholesterolemia Essential hypertension Cellulitis of hand, left Thrush Sore throat Surgical History Hx of colonoscopy (~01/16/24) Hx of colonoscopy History of hysteroscopy History of tonsillectomy Family History Father No problems noted. Mother Colon cancer Endometrial cancer Brother In good health Sister In good health Social History Household Members: None Housing: Apartment Do you presently have visiting nurse or other home services: No Patient Tobacco Use Status: Never used Tobacco e-Cigarette/Vaping Use: Never Used Second Hand Smoke Exposure: No service: No Current occupational status: employed Cognitive needs: No Hearing needs: No Vision needs: Yes Questionnaire PHQ-9 Over the last 2 weeks, how often have you been bothered by any of the following problems? 1. Little interest or pleasure in doing things: not at all 2. Feeling down, depressed, or hopeless: not at all 3. Trouble falling or staying asleep, or sleeping too much: not at all 4. Feeling tired or having little energy: not at all 5. Poor appetite or overeating: not at all 6. Feeling bad about yourself - or that you are a failure or have let yourself or your family down: not at all 7. Trouble concentrating on things, such as reading the newspaper or watching television: not at all 8. Moving or speaking so slowly that other people could have noticed. Or the opposite - being so fidgety or restless that you have been moving around a lot more than usual: not at all 9. Thoughts that you would be better off or of hurting yourself in some way: not at all Total score: 0 Depression Screening Interpretation: Negative Depression Screening Done: Yes 53331 - PHQ-9 Billing: Yes Source: Developed by Drs. Dudley Dos Santos, Farheen Benz, Feliciano Lopez and colleagues, with an educational desmond from [employer]. Thrive Questionnaire Date Thrive assessed: 03/24/25 I am a: Patient What is your living situation today?: I have a steady place to live Within the past 12 months, did the food you bought not last and you didn't have the money to get more?: Never true Within the past 12 months, did you worry whether your food would run out before you got money to buy more?: Never true Do you have trouble paying for medicines?: No Do you have trouble getting transportation to medical appointments?: No Do you have trouble paying your heating and electricity bill?: No Do you have trouble taking care of your child, family member or friend?: No Do you have trouble with day-to-day activities such as bathing, preparing meals, shopping, managing finances, etc.?: No Are you currently unemployed and looking for a job?: No Are you interested in more education?: I choose not to answer this question Please select the resources that you would like help with: None Currently or been in a relationship where the following occur: No concerns reported THRIVE Score: 0 AUDIT C Alcohol Use Questionnaire (AUDIT-C) 1. How often do you have a drink containing alcohol?: Monthly or less 2. How many drinks containing alcohol do you have on a typical day when you are drinking?: 1 or 2 3. How often do you have six or more drinks on one occasion?: Never Total Score: 1 Score Reviewed/Action Taken: Yes DONALDO-7 AMB Questionnaire DONALDO-7 Date DONALDO - 7 assessed: 03/24/25 Feeling nervous, anxious, or on edge: 0 = Not at all Not being able to stop or control worryin = Not at all Worrying too much about different things: 0 = Not at all Trouble relaxin = Not at all Being so restless that it is hard to sit still: 0 = Not at all Becoming easily annoyed or irritable: 0 = Not at all Feeling afraid as if something awful might happen: 0 = Not at all Total DONALDO-7 score (0-4 normal; 5-9 mild; 10-14 moderate; 15-21 severe): 0 Source: Developed by Drs. Dudley Dos Santos, Farheen Benz, Feliciano Lopez and colleagues, with an educational desmond from [employer]. Review of Systems Const Denies chills, Denies fatigue, Denies fever(s) and Denies headache(s) ENT Denies dysphagia, Denies dizziness, Denies otalgia, Denies headache(s), Denies neck pain, Denies odynophagia and Denies sore throat Card Denies chest pain, Denies palpitations and Denies dyspnea Resp Denies chest congestion, Denies cough and Denies dyspnea GI Denies abdominal pain, Denies constipation, Denies dysphagia, Denies heartburn, Denies diarrhea, Denies nausea, Denies odynophagia and Denies vomiting Denies difficulty voiding, Denies nocturia, Denies dysuria and Denies urinary urgency Musc Denies back pain, Denies arthralgias and Denies neck pain Skin/Breast Denies rash Neuro Denies dizziness and Denies headache(s) Endo Denies fatigue and Denies palpitations Physical exam (Primary Care) Vital Signs: Last Vital Signs Pulse 78 03/24/25 11:04 BP 138/86 03/24/25 11:04 Pulse Ox 96 03/24/25 11:04 Oxygen Delivery Method Room Air 03/24/25 11:04 BMI result Body Mass Index 43.8 Tobacco/Smoking Status: Tobacco use Status Tobacco use date assessed 03/24/25 03/24/25 11:09 Patient Tobacco Use Status Never used Tobacco 03/24/25 11:09 e-Cigarette/Vaping Use Never Used 03/24/25 11:09 PHQ-9: PHQ-9 Score PHQ-9: Total score 0 03/24/25 11:09 Depression Screening Interpretation: Negative Thrive Assessment: Date of Thrive Assessment Date Thrive assessed 03/24/25 03/24/25 11:09 Currently or been in a relationship where the following occur: No concerns reported Const General: no acute distress and alert HENMT Ears: TM's normal bilaterally and EAC's normal Throat: Yes posterior oropharynx normal and Yes tonsils normal (no TP con gestion) Neck Neck: Yes supple and No lymphadenopathy Thyroid: Thyroid normal Resp Auscultation: clear to auscultation bilaterally, no rales and no wheezes Cardio Rate: regular rate Rhythm: regular rhythm Heart sounds: no murmurs GI Palpation (GI): Soft to palpation and nontender Auscultation: normal bowel sounds General: Yes no CVA tenderness Back/Spine/Pelvis Back: no CVA tenderness Thoracic/Lumbar Spine: No lumbar spinal tenderness Skin Rashes: no rashes Extrem General: Yes no clubbing, cyanosis or edema Results Reviewed Results Reviewed: Laboratory Tests 03/23/25 03/23/25 11:30 11:35 WBC 9.4 Hgb 14.7 Hct 44.0 Plt Count 220 Sodium 137 Potassium 4.2 Creatinine 0.78 Estimated GFR > 60 Fasting Glucose 105 H Calcium 8.8 AST 39 H ALT 82 H Triglycerides 116 Cholesterol 174 LDL Cholesterol, Calc 115 H HDL Cholesterol 36 L Ur Specific Rachel <= 1.005 Urine Protein Negative Urine Glucose (UA) Negative Urine Blood Negative Urine Nitrite Negative Ur Leukocyte Esterase Negative Coding Level of Care Code Est Pt Level 4 (33956) Diagnoses Pure hypercholesterolemia E78.00 Essential hypertension I10 Elevated LFTs R79.89 Vitamin D deficiency E55.9 Morbid obesity with BMI of 40.0-44.9, adult E66.01; Z68.41 Additional Codes PHQ-9 - 71030 - PHQ-9 Billing: Yes ([id number]) Assessment & Plan Assessment & Plan (1) Pure hypercholesterolemia: Code(s): E78.00 - Pure hypercholesterolemia, unspecified Category: Medical Plan: Results of her labs done yesterday reviewed and discussed with patient - her cholesterol levels have increased slightly from previous but are still within acceptable ranges Reinforced low cholesterol diet Continue Atorvastatin 10 mg QD for now - Rx refilled Will recheck her labs and fasting lipids in 4 months for follow up (2) Essential hypertension: Code(s): I10 - Essential (primary) hypertension Category: Medical Plan: Reinforced low sodium diet - goal is systolic BP of 120 mm or less Continue Lisinopril 10 mg QD Patient is reminded to continue monitoring her blood pressure regularly (3) Elevated LFTs: Code(s): R79.89 - Other specified abnormal findings of blood chemistry Category: Medical Plan: Patient is advised that her LFTs are still slightly elevated, especially her serum ALT - have advised her again that these are likely related to her weight Abdominal ultrasound done a few months ago revealed (+) normal-sized liver, diffusely echogenic reflecting hepatic steatosis or diffuse hepatocellular disease. No focal hepatic lesions are noted. There is an equivocal/probable angiomyolipoma seen and a right kidney CT is recommended for confirmation - abdominal CT ordered Will continue to monitor her LFTs regularly (4) Vitamin D deficiency: Code(s): E55.9 - Vitamin D deficiency, unspecified Category: Medical Plan: Continue Vitamin D3 2000 units QD (5) Morbid obesity with BMI of 40.0-44.9, adult: Code(s): E66.01 - Morbid (severe) obesity due to excess calories; Z68.41 - Body mass index [BMI] 40.0-44.9, adult Category: Medical Plan: Reinforced diet/exercise as tolerated/lose weight Plan Follow up in 4 months Orders: Orders CT abdomen wo IV con Today N28.89 - Other specified disorders of kidney and ureter Comprehensive [place]. Panel Fast 4 Months E78.00 - Pure hypercholesterolemia, unspecified Lipid Panel 4 Months E78.00 - Pure hypercholesterolemia, unspecified Medications: Refilled atorvastatin 10 mg PO DAILY@1530 90 tabs 1RF 90 days lisinopril 10 mg PO DAILY@1530 90 tabs 1RF 90 days
== END 2025-03-24 11:47 | disposition home or self-care (01) ==
LOC: HO.HMCH 10:55
PROVIDERS: PCP Internal Medicine; Visit Provider Internal Medicine
DX: E78.00 Pure hypercholesterolemia, unspecified (principal); E66.01 Morbid (severe) obesity due to excess calories; Z68.41 Body mass index [BMI] 40.0-44.9, adult; I10 Essential (primary) hypertension; R79.89 Other specified abnormal findings of blood chemistry; E55.9 Vitamin D deficiency, unspecified

== ENCOUNTER → 2025-03-24 10:54 | Outpatient (BNVA) | payer OTHER, SELFPAY | PROVIDERS: PCP Internal Medicine; Visit Provider Internal Medicine | DX: I10 Essential (primary) hypertension (principal); E78.00 Pure hypercholesterolemia, unspecified; R79.89 Other specified abnormal findings of blood chemistry; E55.9 Vitamin D deficiency, unspecified; E66.01 Morbid (severe) obesity due to excess calories; N28.89 Other specified disorders of kidney and ureter; Z68.41 Body mass index [BMI] 40.0-44.9, adult | CPT/HCPCS: 96127 ==

== ENCOUNTER 2025-07-25 10:58 | Outpatient (AMB) | payer OTHER, SELFPAY ==
[2025-07-25 11:07] VITALS: BP 140/82; PULSE 62; O2SAT 97; BMI 42.6
--- NOTE | 2025-07-25 11:07 | MHC.PC.OV ---
Vital Signs 07/25/25 11:07 Height 5 ft 8 in Weight 280 lb 2 oz BMI 42.6 BP 140/82 H Blood Pressure Location Lt brachial Position Sitting Pulse 62 Pulse Source Pulse Oximeter Pulse Oximetry (%) 97 Oxygen Delivery Method Room Air Intake Visit Reasons: [facility] f[facility]u Manager Of Sales Required: No Accompanied by: Self / Same As Patient Allergies nut - unspecified (nut) Allergy (Severe, Verified 07/25/25 11:24) HIVES peanut (PEANUT) Allergy (Intermediate, Verified 07/25/25 11:24) HIVES prednisolone (From STERANE) Allergy (Intermediate, Verified 07/25/25 11:24) VISION PROBLEMS sesame oil (SESAME OIL) Allergy (Intermediate, Verified 07/25/25 11:24) HIVES galvan (GALVAN) Allergy (Unknown, Verified 07/25/25 11:24) UNKNOWN soy (SOY) Allergy (Unknown, Verified 07/25/25 11:24) UNKNOWN cat dander Allergy (Verified 07/25/25 11:24) Sneezing Medication List - Last Reconciled 07/25/25 by Benitez Espino MD atorvastatin 10 mg PO DAILY@1530 90 days cholecalciferol (vitamin D3) 50 mcg PO DAILY lisinopril 10 mg PO DAILY@1530 90 days Tobacco use date assessed: 07/25/25 Dental Screening Dental Screen Date: 07/25/25 Did you have a dental visit in the last 12 months?: No Did you have a dental problem in the last 6 months where you did not have access to dental care?: No Was dental information given to patient?: No HPI [facility] f/u HPI Details Patient comes in today for her follow up visit States that she feels okay She denies any headaches or dizziness Denies any chest pains, no increased SOB No nausea/vomiting, no abdominal pain No change in bowel habits noted She was not able to get her follow up labs done prior to her appointment today States that she was also not able to get her abdominal CT done as she was away for the past few months attending to her ailing mother, who recently She is also inquiring as to whether she should get her shingles vaccinations at this time She did get her flu shot and COVID booster at her local pharmacy back on 06/21/2025 [facility] Medical History Morbid obesity with BMI of 40.0-44.9, adult Hypertension Hyperlipidemia Tubular adenoma Family history of colon cancer Morbid obesity with BMI of 45.0-49.9, adult Vitamin D deficiency Anemia Pure hypercholesterolemia Essential hypertension Cellulitis of hand, left Thrush Sore throat Surgical History Hx of colonoscopy (~01/16/24) Hx of colonoscopy History of hysteroscopy History of tonsillectomy Family History Father No problems noted. Mother Colon cancer Endometrial cancer Brother In good health Sister In good health Social History Household Members: None Housing: Apartment Do you presently have visiting nurse or other home services: No Patient Tobacco Use Status: Never used Tobacco e-Cigarette/Vaping Use: Never Used Second Hand Smoke Exposure: No service: No Current occupational status: employed Cognitive needs: No Hearing needs: No Vision needs: Yes Questionnaire Thrive Questionnaire Date Thrive assessed: 03/24/25 I am a: Patient What is your living situation today?: I have a steady place to live Within the past 12 months, did the food you bought not last and you didn't have the money to get more?: Never true Within the past 12 months, did you worry whether your food would run out before you got money to buy more?: Never true Do you have trouble paying for medicines?: No Do you have trouble getting transportation to medical appointments?: No Do you have trouble paying your heating and electricity bill?: No Do you have trouble taking care of your child, family member or friend?: No Do you have trouble with day-to-day activities such as bathing, preparing meals, shopping, managing finances, etc.?: No Are you currently unemployed and looking for a job?: No Are you interested in more education?: I choose not to answer this question Please select the resources that you would like help with: None Currently or been in a relationship where the following occur: No concerns reported THRIVE Score: 0 AUDIT C Alcohol Use Questionnaire (AUDIT-C) 1. How often do you have a drink containing alcohol?: Monthly or less 2. How many drinks containing alcohol do you have on a typical day when you are drinking?: 1 or 2 3. How often do you have six or more drinks on one occasion?: Never Total Score: 1 Score Reviewed/Action Taken: Yes DONALDO-7 AMB Questionnaire DONALDO-7 Date DONALDO - 7 assessed: 03/24/25 Source: Developed by Drs. Dudley Dos Santos, Farheen Benz, Feliciano Lopez and colleagues, with an educational desmond from [employer]. Review of Systems Const Denies chills, Denies fatigue, Denies fever(s) and Denies headache(s) ENT Denies dysphagia, Denies dizziness, Denies otalgia, Denies headache(s), Denies neck pain, Denies odynophagia and Denies sore throat Card Denies chest pain, Denies palpitations and Denies dyspnea Resp Denies chest congestion, Denies cough and Denies dyspnea GI Denies abdominal pain, Denies constipation, Denies dysphagia, Denies heartburn, Denies diarrhea, Denies nausea, Denies odynophagia and Denies vomiting Denies difficulty voiding, Denies nocturia, Denies dysuria and Denies urinary urgency Musc Denies back pain, Denies arthralgias and Denies neck pain Skin/Breast Denies rash Neuro Denies dizziness and Denies headache(s) Endo Denies fatigue and Denies palpitations Physical exam (Primary Care) Vital Signs: Last Vital Signs Pulse 62 07/25/25 11:07 BP 140/82 H 07/25/25 11:07 Pulse Ox 97 07/25/25 11:07 Oxygen Delivery Method Room Air 07/25/25 11:07 BMI result Body Mass Index 42.6 Tobacco/Smoking Status: Tobacco use Status Tobacco use date assessed 07/25/25 07/25/25 11:12 Patient Tobacco Use Status Never used Tobacco 07/25/25 11:12 e-Cigarette/Vaping Use Never Used 07/25/25 11:12 Thrive Assessment: Date of Thrive Assessment Date Thrive assessed 03/24/25 07/25/25 11:12 Currently or been in a relationship where the following occur: No concerns reported Const General: no acute distress and alert HENMT Ears: TM's normal bilaterally and EAC's normal Throat: Yes posterior oropharynx normal and Yes tonsils normal (no TP congestion) Neck Neck: Yes supple and No lymphadenopathy Thyroid: Thyroid normal Resp Auscultation: clear to auscultation bilaterally, no rales and no wheezes Cardio Rate: regular rate Rhythm: regular rhythm Heart sounds: no murmurs GI Palpation (GI): Soft to palpation and nontender Auscultation: normal bowel sounds General: Yes no CVA tenderness Back/Spine/Pelvis Back: no CVA tenderness Thoracic/Lumbar Spine: No lumbar spinal tenderness Skin Rashes: no rashes Extrem General: Yes no clubbing, cyanosis or edema Coding Level of Care Code Est Pt Level 4 (41583) Diagnoses Pure hypercholesterolemia E78.00 Essential hypertension I10 Elevated LFTs R79.89 Lesion of right [place] kidney N28.9 Vitamin D deficiency E55.9 Morbid obesity with BMI of 40.0-44.9, adult E66.01; Z68.41 Assessment & Plan Assessment & Plan (1) Pure hypercholesterolemia: Code(s): E78.00 - Pure hypercholesterolemia, unspecified Category: Medical Plan: She was not able to get her follow up labs done prior to coming in for her appointment today - states that she will try to get these done ALFRED Reinforced low cholesterol diet Continue Atorvastatin 10 mg QD Will recheck her labs and fasting lipids in 4 months for follow up (2) Essential hypertension: Code(s): I10 - Essential (primary) hypertension Category: Medical Plan: Reinforced low sodium diet - goal is systolic BP of 120 mm or less Continue Lisinopril 10 mg QD Patient is reminded to continue monitoring her blood pressure regularly (3) Elevated LFTs: Code(s): R79.89 - Other specified abnormal findings of blood chemistry Category: Medical Plan: Her LFTs were still slightly elevated on her recent labs done a few months ago - have advised her again that these are likely related to her weight Abdominal ultrasound done earlier this year revealed (+) normal-sized liver, diffusely echogenic reflecting hepatic steatosis or diffuse hepatocellular disease. No focal hepatic lesions are noted. There is an equivocal/probable angiomyolipoma seen and a right kidney CT is recommended for confirmation - abdominal CT was ordered but patient was not able to get this done yet Will continue to monitor her LFTs regularly (4) Lesion of right [place] kidney: Code(s): N28.9 - Disorder of kidney and ureter, unspecified Category: Medical Plan: Patient was previously sent for abdominal CT for further evaluation but she was not ablew to get this done yet Have advised patient to reach out to radiology at [facility] and reschedule this on her own ALFRED and that we will reach out to her ALFRED if her CT reveals any significant abnormalities (5) Vitamin D deficiency: Code(s): E55.9 - Vitamin D deficiency, unspecified Category: Medical Plan: Continue Vitamin D3 2000 units QD (6) Morbid obesity with BMI of 40.0-44.9, adult: Code(s): E66.01 - Morbid (severe) obesity due to excess calories; Z68.41 - Body mass index [BMI] 40.0-44.9, adult Category: Medical Plan: Reinforced diet/exercise as tolerated/lose weight Plan Follow up in 4 months Orders: Orders Complete Blood Count Auto Diff 4 Months D64.9 - Anemia, unspecified Comprehensive [place]. Panel Fast 4 Months E78.00 - Pure hypercholesterolemia, unspecified Lipid Panel 4 Months E78.00 - Pure hypercholesterolemia, unspecified UA CC w/rflx Micro + Cult 4 Months R30.0 - Dysuria
== END 2025-07-25 11:40 | disposition home or self-care (01) ==
LOC: HO.HMCH 10:59
PROVIDERS: PCP Internal Medicine; Visit Provider Internal Medicine
DX: E78.00 Pure hypercholesterolemia, unspecified (principal); I10 Essential (primary) hypertension; E66.01 Morbid (severe) obesity due to excess calories; Z68.41 Body mass index [BMI] 40.0-44.9, adult; R79.89 Other specified abnormal findings of blood chemistry; N28.9 Disorder of kidney and ureter, unspecified; E55.9 Vitamin D deficiency, unspecified

== ENCOUNTER 2025-09-05 14:02 | Outpatient (REF) | payer OTHER, SELFPAY ==
[2025-09-05 15:15] LABS: Appearance Urine Cloudy; Glucose Urine UA Negative (Negative); PH 5.5 (5.0-9.0); Specific Gravity - Urine <= 1.005 (1.005-1.025)
[2025-09-05 15:39] LABS: Alanine Aminotransferase 48 U/L (0-31); Albumin Level 4.3 g/dL (3.5-5.0); Alkaline Phosphatase 52 U/L (39-117); Anion Gap 11 (12-20); Aspartate Amino Transferase 28 U/L (5-31); Blood Urea Nitrogen 18 mg/dL (9-16); Calcium 9.1 mg/dL (8.4-10.2); Carbon Dioxide 25 mmol/L (22-29); Chloride 108 mmol/L (96-108); Cholesterol 174 mg/dL (<200); Estimated Glomerular Filt Rate > 60; HDL Cholesterol 39 mg/dL (>40); Potassium 4.0 mmol/L (3.3-5.1); Sodium 140 mmol/L (135-145); Total Protein 7.0 g/dL (6.5-8.0); Triglycerides 116 mg/dL (<150)
== END 2025-09-05 14:03 | disposition home or self-care (01) ==
LOC: HO.LAB 14:02
PROVIDERS: PCP Internal Medicine; Visit Provider Internal Medicine
DX: R30.0 Dysuria (principal); E78.00 Pure hypercholesterolemia, unspecified
CPT/HCPCS: 36415; 80053; 80061; 81003

== ENCOUNTER 2025-09-08 13:14 | Outpatient (REF) | payer OTHER, SELFPAY ==
--- NOTE | ~2025-09-08 | CT_ITS ---
EXAMINATION: CT ABDOMEN WITHOUT THEN WITH IV CONTRAST HISTORY: N28.89 - Other specified disorders of kidney and ureter COMPARISON: Correlation is made with an abdominal ultrasound 12/27/2024. TECHNIQUE: CT scan of the abdomen was performed before and after the intravenous administration of 85 mL Omnipaque 350 using standard departmental protocol. Coronal and sagittal reformatted images were generated and reviewed. This CT exam was performed with one or more of the following dose reduction techniques: automated exposure control, adjustment of the mA and/or kV according to patient size, use of iterative reconstruction technique. DLP: 1136 mGy-cm FINDINGS: LOWER CHEST: The visualized lung bases are clear. There is no pleural effusion. CARDIOVASCULATURE: The heart is normal in size. There is no pericardial effusion. LIVER: The liver is normal in size and contour, but demonstrates diffusely decreased attenuation, consistent with steatosis. There is focal fatty sparing adjacent to the gallbladder. No liver mass is identified. The hepatic and portal veins are patent. GALLBLADDER / BILE DUCTS: The gallbladder is unremarkable. There is no intra or extrahepatic biliary ductal dilatation. SPLEEN: The spleen is normal in size. No focal splenic lesion is identified. PANCREAS: The pancreas is unremarkable in appearance. ADRENAL GLANDS: Within normal limits. KIDNEYS/RETROPERITONEUM: No renal calculi are identified. There is no hydronephrosis. There is scarring at the upper pole of the right kidney. No right renal mass is identified. There is a 5 mm hypodense focus at the upper pole of the left kidney and a 7 mm hypodense focus at the lower pole. These are too small to accurately characterize. LYMPH NODES: No abdominal lymphadenopathy. VASCULATURE: The abdominal aorta is normal in caliber. MESENTERY/PERITONEUM: No free fluid. No masses. There is no free intraperitoneal gas. STOMACH: The stomach is collapsed, limiting evaluation. SMALL BOWEL: The visualized small bowel is normal in caliber. COLON: The visualized portion of the colon is unremarkable. BONES / SOFT TISSUES: The visualized portion of the uterus is enlarged suggestive of fibroids. CT/CT abdomen wo/w IV con IMPRESSION: 1. Tiny hypodense foci are noted in the left kidney which are too small to accurately characterize. There is right renal scarring. No right renal mass is identified. Ultrasound follow-up of the right renal lesion is recommended. 2. Probable fibroid uterus. Electronically signed by: Dudley Viera MD 09/08/2025 03:20 PM ARISTEO DAVILA
[2025-09-08] MEDS: iohexoL 350 MG/ML 100 ML INFUS..BTL IV (15:07)
== END 2025-09-08 13:15 ==
LOC: HO.CT 13:14
PROVIDERS: PCP Internal Medicine; Visit Provider Internal Medicine
DX: N28.89 Other specified disorders of kidney and ureter (principal)
CPT/HCPCS: 74170; Q9967

== ENCOUNTER → 2025-09-08 13:16 | Outpatient (BNV) | payer OTHER, SELFPAY | PROVIDERS: PCP Internal Medicine; Visit Provider Radiology Diagnostic Radiology | DX: N28.89 Other specified disorders of kidney and ureter (principal) | CPT/HCPCS: 74170 ==